=== PATIENT | female | born 1960 | race Caucasian/White ===

== ENCOUNTER → 2019-10-06 13:32 | Outpatient (CLI) | payer OTHER, SELFPAY ==
--- NOTE | ~2019-10-06 | MM_ITS ---
EXAMINATION: MM screening [facility] BI w shala HISTORY: Screening mammogram TECHNIQUE: Craniocaudal and mediolateral oblique 3-D tomosynthesis images were obtained and synthetic 2-D images were generated. CAD analysis was submitted and interpreted. COMPARISON: Comparison to multiple prior studies sequentially, with oldest reviewed study dated 03/2010. BREAST PARENCHYMAL COMPOSITION: There are scattered areas of fibroglandular density. FINDINGS: There is no evidence of suspicious mass, calcification, or architectural distortion to sugg est malignancy in either breast. There has been no suspicious interval change. IMPRESSION: 1. No mammographic evidence of malignancy. 2. Recommend routine screening mammography in one year. BI-RADS Category 1: Negative Reviewed, dictated and finalized at location A.
== END ==
PROVIDERS: PCP Family Medicine; Visit Provider Obstetrics & Gynecology
DX: Z12.31 Encounter for screening mammogram for malignant neoplasm of breast (principal)
CPT/HCPCS: 77063; 77067

== ENCOUNTER → 2020-08-06 16:01 | Outpatient (CLI) | payer OTHER, SELFPAY ==
--- NOTE | ~2020-08-06 | XR_ITS ---
EXAMINATION: XR foot LT 2V DATE: 08/06/2020 17:24 INDICATION: Psoriatic arthritis. TECHNIQUE: 2 views of left foot were obtained. COMPARISON: Left foot radiographs 04/18/2015 FINDINGS: Bone alignment is normal. No fracture. There is mild osteoarthritis of first metatarsophala ngeal joint and talonavicular joint. There is a periarticular calcification at talonavicular joint. T here are enthesophytes at the posterior and plantar aspects of calcaneal tuberosity. IMPRESSION: 1. Polyarticular osteoarthritis. Reviewed, dictated and finalized at location B. ING AND BROACH OPERATOR
--- NOTE | ~2020-08-06 | XR_ITS ---
EXAMINATION: XR sacroiliac joints min 3V DATE: 08/06/2020 17:24 INDICATION: Psoriatic arthritis. TECHNIQUE: 3 views of the sacroiliac joints were obtained. COMPARISON: CT abdomen and pelvis 01/23/2014 FINDINGS: Bone alignment is normal. No fracture. There is mild osteoarthritis of the sacroiliac joint s. There is an intrauterine device in expected position. IMPRESSION: 1. Mild osteoarthritis of the sacroiliac joints. No evidence of inflammatory arthropathy. Reviewed, dictated and finalized at location B. CTOR OF THE BIOPHYSICS FACILITY IMPRESSION: 1. Mild osteoarthritis of the sacroiliac joints. No evidence of inflammatory ar thropathy.
--- NOTE | ~2020-08-06 | XR_ITS ---
EXAMINATION: XR hand RT 2V DATE: 08/06/2020 17:24 INDICATION: Psoriatic arthritis. TECHNIQUE: 2 views of right hand were obtained. COMPARISON: Right wrist radiographs 08/24/2012 FINDINGS: Bone alignment is normal. No fracture. Lunate is type II. There is moderate osteoarthritis at the lunate-hamate joint. There is severe osteoarthritis of first carpometacarpal joint and mild os teoarthritis of first and second metacarpophalangeal joints. There is mild osteoarthritis of most of the interphalangeal joints. There is moderate osteoarthritis of second, third, and fifth distal inter phalangeal joints. IMPRESSION: 1. Polyarticular osteoarthritis. No evidence of inflammatory arthropathy. Reviewed, dictated and finalized at location B. CREWMEMBER
--- NOTE | ~2020-08-06 | XR_ITS ---
EXAMINATION: XR hand LT 2V DATE: 08/06/2020 17:24 INDICATION: Psoriatic arthritis. TECHNIQUE: 2 views of left hand were obtained. COMPARISON: Left wrist radiographs 08/24/2012 FINDINGS: Bone alignment is normal. No fracture. There is moderate osteoarthritis of first carpometac arpal joint and mild osteoarthritis of second and third metacarpophalangeal joints. There is mild ost eoarthritis of most of the interphalangeal joints. There is moderate osteoarthritis of second distal interphalangeal joint. IMPRESSION: 1. Polyarticular osteoarthritis. No evidence of inflammatory arthropathy. Reviewed, dictated and finalized at location B. CULTURAL EXTENSION AGENT
--- NOTE | ~2020-08-06 | XR_ITS ---
EXAMINATION: XR lumbar spine 2-3V DATE: 08/06/2020 17:24 INDICATION: Psoriatic arthritis. TECHNIQUE: 3 views of lumbar spine were obtained. COMPARISON: CT abdomen and pelvis 01/23/2014 FINDINGS: There is 6 degrees levocurvature of thoracolumbar spine. Vertebral body heights are normal. There is mildly decreased disc height at L1-L2. There are endplate osteophytes at most levels. There is severe facet joint osteoarthritis in lower lumbar spine. There is an intrauterine device in expec francisco position. There is 11 mm stone in left kidney. IMPRESSION: 1. Mild lumbar spondylosis. 2. Left kidney stone. Reviewed, dictated and finalized at location B. S SUPPORT ADVISOR
--- NOTE | ~2020-08-06 | XR_ITS ---
EXAMINATION: XR foot RT 2V DATE: 08/06/2020 17:24 INDICATION: Psoriatic arthritis. TECHNIQUE: 2 views of right foot were obtained. COMPARISON: None. FINDINGS: There is mild hallux valgus. No fracture. There is mild osteoarthritis of first metatarsoph alangeal joint and talonavicular joint. IMPRESSION: 1. Mild hallux valgus. 2. Mild polyarticular osteoarthritis. Reviewed, dictated and finalized at location B. AND MISCELLANEOUS REMITTANCE CLERK
== END ==
PROVIDERS: Visit Provider Physician Assistant Medical
DX: L40.50 Arthropathic psoriasis, unspecified (principal); M53.3 Sacrococcygeal disorders, not elsewhere classified; M47.896 Other spondylosis, lumbar region; N20.0 Calculus of kidney; M19.072 Primary osteoarthritis, left ankle and foot; M19.071 Primary osteoarthritis, right ankle and foot; M20.11 Hallux valgus (acquired), right foot; M19.042 Primary osteoarthritis, left hand; M19.041 Primary osteoarthritis, right hand
CPT/HCPCS: 72100; 72202; 73120; 73620

== ENCOUNTER → 2020-09-04 11:29 | Outpatient (CLI) | payer OTHER, SELFPAY ==
--- NOTE | ~2020-09-04 | XR_ITS ---
EXAMINATION: CT abdomen pelvis wo con, XR abdomen/kub 1V DATE: 09/04/2020 11:50 (accession [id number]), 09/04/2020 11:51 (accession [id number]) INDICATION: Kidney calculus TECHNIQUE: Computed tomography (CT) of the abdomen and pelvis was performed without intravenous contr ast. Automated exposure control and iterative reconstruction technique were employed. Exam dose: 101 5.66 mGy-cm total exam DLP. COMPARISON: 01/23/[address] abdomen pelvis FINDINGS: The lung bases are clear of infiltrate or consolidation. Normal heart size. No pericardial or pleural effusion. Small sliding hiatal hernia. The liver, gallbladder, bile ducts, spleen, pancreas, pancreatic duct, and adrenal glands are unremar kable. 4.7 mm radiographically evident nonobstructing mid right renal calculus. 6.5 mm radiographically evident lower pole nonobstructing right renal calculus. No right ureteral lisa culus or hydroureteronephrosis. There is a faint radiographically occult pinpoint nonobstructing lower pole left renal calculus. 5.8 x 13 mm radiographically evident left proximal ureteral calculus with moderate proximal left hydr onephrosis. There is mild thickening of the anterior and posterior pararenal fascia and lateroconal f ascia and perinephric stranding on the left. The urinary bladder is unremarkable. There is an IUD within the uterus. No adnexal mass lesion. Mild atherosclerotic calcification of the abdominal aorta. No abdominal aortic aneurysm. No intraperi toneal or retroperitoneal or pelvic mass lesion or adenopathy or ascites. Mild sigmoid colon diverticulosis. No evidence of diverticulitis. Normal appendix. No bowel obstruction, bowel wall thickening, pneumatosis or intraperitoneal free air . Small fat-containing umbilical hernia. Diffuse idiopathic skeletal hyperostosis of the thoracic spine. Moderate degenerative disc disease at L4-5 and L5-S1. There is prominent degenerative change at the a pophyseal joints of the lower lumbar and lumbosacral area. No suspicious osteolytic or osteoblastic lesions are noted. IMPRESSION: 5.8 x 13 mm obstructing left proximal ureteral calculus with moderate left hydronephrosi s, perinephric stranding, thickening of the anterior and posterior pararenal and lateroconal fascia Pinpoint nonobstructing lower pole left renal calculus 4.7 mm and 6.5 mm nonobstructing right renal calculi Small sliding hiatal hernia Sigmoid colon diverticulosis Reviewed, dictated and finalized at Location A. Reviewed, dictated and finalized at location B. G[employer] IMPRESSION: 5.8 x 13 mm obstructing left proximal ureteral calculus with moder ate left hydronephrosis, perinephric stranding, thickening of the anterior and posterior pararenal and lateroconal fascia Pinpoint nonobstructing lower pole left renal calculus 4.7 mm and 6.5 mm nonobstructing right renal calculi Small sliding hiatal hernia Sigmoid colon diverticulosis
== END ==
PROVIDERS: PCP Family Medicine; Visit Provider Urology
DX: K44.9 Diaphragmatic hernia without obstruction or gangrene (principal); K57.30 Diverticulosis of large intestine without perforation or abscess without bleeding; N20.2 Calculus of kidney with calculus of ureter
CPT/HCPCS: 74018; 74176

== ENCOUNTER → 2020-09-05 01:25 | Outpatient (CLI) | payer OTHER, SELFPAY ==
[2020-09-05 20:12] LABS: SARS-CoV-2 RNA PCR Negative
== END ==
PROVIDERS: PCP Family Medicine; Visit Provider Urology
DX: Z01.812 Encounter for preprocedural laboratory examination (principal); Z20.822 Contact with and (suspected) exposure to COVID-19
CPT/HCPCS: C9803; U0003; U0005

== ENCOUNTER → 2020-09-09 00:05 | Outpatient (CLI) | payer OTHER, SELFPAY ==
[2020-09-09 19:33] LABS: SARS-CoV-2 RNA PCR Negative
== END ==
PROVIDERS: PCP Family Medicine; Visit Provider Urology
DX: Z01.812 Encounter for preprocedural laboratory examination (principal); Z20.822 Contact with and (suspected) exposure to COVID-19
CPT/HCPCS: C9803; U0003; U0005

== ENCOUNTER 2020-09-10 16:30 | Outpatient (CLI) | payer OTHER, SELFPAY ==
--- NOTE | 2020-09-10 16:33 | ECG_ITS ---
Measurements Intervals [place] Rate: 68 P: 37 AK: 164 QRS: 38 QRSD: 88 T: 34 QT: 369 QTc: 394 Interpretive Statements SINUS RHYTHM NORMAL ECG Electronically Signed On 09-10-2020 16:43:49 FACILITY SERVICE MANAGER by Santosh Zhu D.O.
[2020-09-10 17:27] LABS: Basophils Absolute Auto 0.1 K/mm3 (0.0-0.1); Basophils Percent Auto 0.8 % (0.2-1.2); Eosinophils Absolute Auto 0.2 K/mm3 (0-0.3); Eosinophils Percent Auto 3.4 % (0-4.4); Hematocrit 40.1 % (37.0-47.0); Hemoglobin 12.8 g/dL (12.0-15.0); Immature Granulocyte Absolute 0.01 K/mm3 (0.00-0.031); Immature Granulocyte Percent A 0.2 % (0-0.5); Lymphocytes Absolute Auto 1.46 K/mm3 (0.9-3.2); Lymphocytes Percent Auto 23.7 % (18.3-44.2); Mean Corpuscular HGB Conc 31.9 g/dl (32-36); Mean Corpuscular Hemoglobin 31.7 pg (26-34); Mean Corpuscular Volume 99.3 fl (80-100); Mean Platelet Volume 10.2 fl (7.4-10.4); Monocytes Absolute Auto 0.6 K/mm3 (0.1-0.6); Monocytes Percent Auto 9.1 % (2.6-8.5); Neutrophils Absolute Auto 3.9 K/mm3 (1.3-6.7); Neutrophils Percent Auto 62.8 % (45.5-73.1); Platelet Count Result 364 k/mm3 (150-375); Red Blood Count 4.04 M/mm3 (4.2-5.4); White Blood Count 6.2 K/mm3 (4.5-10.0)
[2020-09-10 17:36] LABS: Prothrombin Time 14.1 Seconds (11.1-14.7)
[2020-09-10 17:37] LABS: Partial Thromboplastin Time 37.1 SECONDS (22.3-36.8)
[2020-09-10 17:42] LABS: Alanine Aminotransferase 25 U/L (4-35); Albumin Level 4.5 g/dL (3.5-5.1); Alkaline Phosphatase 74 U/L (38-126); Anion Gap 9 mmol/L (8-16); Aspartate Amino Transferase 40 U/L (14-36); Bilirubin,Total 0.4 mg/dL (0.2-1.3); Blood Urea Nitrogen 16 mg/dL (7-17); CRP 2.9 mg/dL (<1.0); Calcium 9.7 mg/dL (8.4-10.2); Carbon Dioxide 30 mmol/L (22-30); Chloride 106 mmol/L (98-107); Estimated Glomerular Filt Rate 33; Glucose 127 mg/dL (65-105); Sodium 145 mmol/L (137-145)
[2020-09-10 17:55] LABS: Erythrocyte Sedimentation Rate 55 mm/hr (0-20)
[2020-09-10 19:34] LABS: Vitamin D 25 Hydroxy 35.9 ng/mL
== END 2020-09-10 16:31 | disposition home or self-care (01) ==
PROVIDERS: Urology; PCP Family Medicine; Referring Provider Physician Assistant Medical; Visit Provider Anesthesiology
DX: L40.50 Arthropathic psoriasis, unspecified (principal)
CPT/HCPCS: 36415; 80053; 82306; 85025; 85610; 85652; 85730; 86140; 93005

== ENCOUNTER 2020-09-12 01:34 | Day surgery (SDC) | payer OTHER, SELFPAY ==
[2020-09-04 18:11] VITALS: BMI 46.3
[2020-09-12] VITALS (8 sets, daily range): BP systolic 94–147; BP diastolic 53–72; PULSE 67–78; RESP 12–20; TEMP 36.3; O2SAT 95–100; BMI 38.9
--- NOTE | ~2020-09-12 | XR_ITS ---
EXAMINATION: XR abdomen/kub 1V DATE: 09/12/2020 11:53 INDICATION: Lithotripsy TECHNIQUE: A supine view of the abdomen on 2 radiographs was obtained. COMPARISON: CT and KUB dated 09/04/2020 FINDINGS: The 11 mm stone previously seen in the proximal left ureter is advanced now in the distal left ureter projecting slightly inferomedial to the caudal margin of the left sacral iliac joint. 5 mm right jewell al stone previously at a lower pole calyx is now seen projecting over the right renal pelvis. No othe r evident urolithiasis. Atherosclerotic calcification the right hemipelvis. Unchanged appearance of a n IUD in the central pelvis. Lung bases are clear. Moderate to severe lower lumbar facet osteoarthrit is. IMPRESSION: 1. Bilateral nephrolithiasis with advancement of an 11 mm stone previously in the proximal left urete r, now in the distal left ureter. Reviewed, dictated and finalized at location A. H DRESSER IMPRESSION: 1. Bilateral nephrolithiasis with advancement of an 11 mm stone previously in t he proximal left ureter, now in the distal left ureter.
--- NOTE | 2020-09-12 12:29 | WPDHPUPDATE1 ---
History and Physical Update Update Date/Time: 09/12/20 12:29 History and Physical has been reviewed, including an updated exam of the patient. There are NO changes in the patient's condition. Risks, benefits, and alternatives have been discussed and questions answered. Patient agrees to proceed with procedure. Proceed with eswl of left ureteral calculus possible cysto with stent placement.
[2020-09-12] MEDS: LACTATED RINGERS 1,000 ML 30 ML IV CONT (12:32)
--- NOTE | 2020-09-12 12:32 | P.PNAN_ITS ---
Anes - Initial Pre Proc Eval Procedure: Operation Date: 09/12/20 13:45 Proposed Procedures p Left Ureteral Extracorporeal Shock Wave Lithotripsy - Jeffrey Trotter MD s Possible Cystoscopy With Possible Left Ureteral Stent Placement - Jeffrey Trotter MD Date/Time: 09/12/20 12:32 Surgeon: Jeffrey Trotter MD Pre Op Diagnosis: Left Ureteral Stone, Hydronephrosis Patient Data Age: 59 Gender: F Height: 5 ft 1 in Weight: 93.4 kg Last Vital Signs Temp 97.3 F L 09/12/20 12:14 Pulse 67 09/12/20 12:14 Resp 16 09/12/20 12:14 BP 113/63 09/12/20 12:14 Pulse Ox 99 09/12/20 12:14 Allergies Allergy/AdvReac Type Severity Reaction Status Date / Time naproxen [From Aleve] AdvReac Gastrointestinal Verified 09/12/20 12:02 Upset Sulfa (Sulfonamide AdvReac Congested Verified 09/12/20 12:02 Antibiotics) Home Medications Medication Instructions Recorded Confirmed Type allopurinol 100 mg PO BID 09/04/20 09/12/20 History apremilast [Otezla] 30 mg PO BID 09/04/20 09/12/20 History atenolol 50 mg PO HS 09/04/20 09/06/20 History folic acid 1 mg PO DAILY 09/04/20 09/12/20 History lisinopril 5 mg PO QAM 09/04/20 09/12/20 History methotrexate sodium 12.5 mg PO DIRECTED 09/04/20 09/12/20 History nabumetone [Relafen] 1,000 mg PO DAILY 09/04/20 09/06/20 History prednisone 2.5 mg PO QAM 09/04/20 09/12/20 History sulfasalazine 500 mg PO BID 09/04/20 09/12/20 History calcium carbonate [Calcium 600] 600 mg PO DAILY 09/06/20 09/12/20 History omeprazole magnesium [Prilosec OTC] 20 mg PO DAILY 09/06/20 09/12/20 History tamsulosin 0.4 mg PO DAILY 09/06/20 09/12/20 History tramadol 50 mg PO Q6-8H PRN 09/06/20 09/12/20 History Patient hx anesthesia problems: none Family hx anesthesia problems: none [facility] Past Medical History Medical History (Updated 09/12/20 @ 12:32 by Denys Quesada MD) GERD (gastroesophageal reflux disease) Hypertension LANNY (obstructive sleep apnea) Social History Social History Smoking status: Never smoker Living arrangements: alone Gender identity (if verbalized by the patient): Female Spiritual care concerns: No Anes - Eval Final PreProcedure Day of Procedure 09/12/20 12:32 Patient weight: obese Heart: regular rate and rhythm Lungs: clear to auscultation Airway: Mallampati scale class III Neurological: alert and oriented Last oral intake: >/= 8 hours ASA classification: III Emergent: no Anesthetic plan: proceed Anesthesia type and monitoring: general LMA and standard monitoring Informed Consent: The patient's anesthetic plan and its attendant risks and benefits were discussed with the patient/family/POA. Questions were solicited and answers provided to the satisfaction of the patient/family/POA.
--- NOTE | 2020-09-12 12:33 | SUR.PREOP ---
DR YEN NOTIFIED OF PT'S C/O NAUSEA.
[2020-09-12] MEDS: ONDANSETRON INJ 4 MG/2 ML VIAL IV PUSH (12:41)
--- NOTE | 2020-09-12 13:19 | WPDHPUPDATE1 ---
History and Physical Update Update Date/Time: 09/12/20 13:19 History and Physical has been reviewed, including an updated exam of the patient. There are NO changes in the patient's condition. Risks, benefits, and alternatives have been discussed and questions answered. Patient agrees to proceed with procedure. Proceed with cysto, left stent exchange, possible eswl of ureteral stent
[2020-09-12] MEDS: ceFAZolin 2 GM/D5W 50 ML 2 GM/50 ML BAG IVPB (13:37)
--- NOTE | 2020-09-12 14:18 | SUR.OPER ---
left ureteral stent 4.8FR contour
[2020-09-12] MEDS: LIDOCAINE HCL 2% GEL UROJET 10 ML PKG MUCOUS MEM (14:42)
--- NOTE | 2020-09-12 14:44 | PM.PROC ---
Procedure Note - Detailed Date of procedure: 09/12/20 Pre-op diagnosis: Left Ureteral Stone, Hydronephrosis Post-op diagnosis: same Procedure performed: Cystoscopy, left retrograde pyelogram, left ureteral stent placement 4.8 Hong Konger contour, lithotripsy of left ureteral calculus 12 mm. Description of procedure: Patient is taken the operative suite and correctly identified. Once anesthesia was obtained she was placed the supine position. The stone was localized in both planes. Three thousand shocks were given the stone. It was difficult to tell how much fragmentation was actually occurring. Giving the fact that she was having significant nausea and emesis prior to the procedure we decided to place a stent. We thus frog-leg urine prepped and draped in the usual sterile fashion. Sixteen Hong Konger flexible scope inserted into the urethra. The left ureteral orifice was cannulated with a guidewire were able to manipulated up past the stone. A [place]kov was passed over it. Pyelogram was performed. 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 We were able to place a 4.8 [place]er contour stent with the proximal end coiled in the upper pole calyx distal in the bladder. 2% viscous lidocaine was inserted into the urethra. She is taken recovery room stable condition. She will follow up in about 10 days with KUB. Anesthesia: GLMA Surgeon: Jeffrey Trotter MD Drains: Yes Packing: No Pathology: none sent Complications: No immediate complications Condition: stable Disposition: PACU
[2020-09-12] MEDS: fentaNYL CITRATE INJ (*CRX) 100 MCG/2 ML VIAL 25 MCG IV PUSH (15:13)
== END 2020-09-12 16:56 | disposition home or self-care (01) ==
PROVIDERS: PCP Family Medicine; Visit Provider Urology
PROC: (CPT 50590; principal; 2020-09-12 13:45)
PROC: (CPT 52352; 2020-09-12 13:45)
DX: N13.2 Hydronephrosis with renal and ureteral calculous obstruction (principal); N13.30 Unspecified hydronephrosis; K21.9 Gastro-esophageal reflux disease without esophagitis; I10 Essential (primary) hypertension; G47.33 Obstructive sleep apnea (adult) (pediatric); E66.01 Morbid (severe) obesity due to excess calories; Z68.38 Body mass index [BMI] 38.0-38.9, adult
CPT/HCPCS: 50590; 52332; 36415; 74018; 85730; A9270; C1758; C1769; C2617; C9803; J0690; J2250; J2405; J2704; J3010; J7030; J7120; Q9966; U0003; U0005

== ENCOUNTER 2020-09-26 10:32 | Outpatient (CLI) | payer OTHER, SELFPAY ==
--- NOTE | ~2020-09-26 | XR_ITS ---
EXAMINATION: XR abdomen/kub 1V INDICATION: Left ureteral stone TECHNIQUE: Supine views of the abdomen were obtained on 2 radiographs. COMPARISON: 09/12/2020 FINDINGS: A left internal ureteral stent has been placed in expected position. The previously describ ed left distal ureteral stone appears to have been fragmented into multiple smaller fragments which a re now seen adjacent to the distal aspect of the internal ureteral stent. An approximately 6 mm stone is seen adjacent to the internal ureteral stent just below the lower margin of the left sacrum. Ther e is a 6 mm stone of the right kidney. The bowel gas pattern is normal. There is moderate osteoarthri tis of the hips. An IUD is noted in the pelvis. IMPRESSION: 1. Changes consistent with interval treatment of the previously described left distal ureteral stone with stone fragments adjacent to the distal aspect of a left internal ureteral stent. 2. Right nephrolithiasis. Reviewed, dictated and finalized at location A. RETE ENGINEER IMPRESSION: 1. Changes consistent with interval treatment of the previously described left distal ureteral stone with stone fragments adjacent to the distal aspect of a l eft internal ureteral stent. 2. Right nephrolithiasis.
== END 2020-09-26 10:33 | disposition home or self-care (01) ==
LOC: ANHIMG 10:34
PROVIDERS: PCP Family Medicine; Visit Provider Urology
DX: N20.0 Calculus of kidney (principal)
CPT/HCPCS: 74018

== ENCOUNTER → 2020-10-03 16:12 | Outpatient (CLI) | payer OTHER, SELFPAY ==
--- NOTE | ~2020-10-03 | XR_ITS ---
XR abdomen/kub 1V DATE: 10/03/2020 16:25 INDICATION: Ureteral calculus TECHNIQUE: AP projection, 2 views COMPARISON: 09/26/2020 KUB 09/04/[address] abdomen pelvis FINDINGS: Left internal urinary stent is unchanged in position since 09/26/2020. There is evidence of Steinstrasse (linear array of stones) at the distal left ureter. There are 2 mid right renal calcified. No evidence of bowel obstruction. The psoas shadows are intact. No visceromegaly is evident. IMPRESSION: Distal left ureteral Steinstrasse following lithotripsy Left internal urinary stent unchanged since 09/04/2020 Right nephrolithiasis Reviewed, dictated and finalized at Location A. Reviewed, dictated and finalized at location A.
== END ==
PROVIDERS: PCP Family Medicine; Visit Provider Urology
DX: N20.2 Calculus of kidney with calculus of ureter (principal)
CPT/HCPCS: 74018

== ENCOUNTER → 2020-10-07 01:01 | Outpatient (CLI) | payer OTHER, SELFPAY ==
[2020-10-07 20:24] LABS: SARS-CoV-2 RNA PCR Negative
== END ==
PROVIDERS: PCP Family Medicine; Visit Provider Urology
DX: Z01.812 Encounter for preprocedural laboratory examination (principal); Z20.822 Contact with and (suspected) exposure to COVID-19
CPT/HCPCS: C9803; U0003; U0005

== ENCOUNTER 2020-10-07 15:50 | Outpatient (CLI) | payer OTHER, SELFPAY | END 2020-10-07 15:51 | disposition home or self-care (01) | LOC: ANHSURGERY 15:51 | PROVIDERS: PCP Family Medicine; Visit Provider Urology | DX: N20.1 Calculus of ureter (principal); Z01.818 Encounter for other preprocedural examination | CPT/HCPCS: 87086 ==

== ENCOUNTER 2020-10-10 01:22 | Day surgery (SDC) | payer OTHER, SELFPAY ==
[2020-10-07 08:48] VITALS: BMI 46.2
[2020-10-10] VITALS (8 sets, daily range): BP systolic 121–158; BP diastolic 62–95; PULSE 61–71; RESP 13–16; TEMP 36.5–37; O2SAT 97–100
--- NOTE | ~2020-10-10 | XR_ITS ---
XR abdomen/kub 1V 10/10/2020 13:15 Indication: Renal stones Procedure: KUB Comparison: 10/03/2020 Findings: No significant change to position the left internal ureteral stent. There are multiple dist al left ureteral stones. There are right renal stones, largest measuring 6 mm. There is an IUD in the pelvis. Bowel gas pattern is nonobstructive. Impression: 1: Multiple distal left ureteral stones with stable position to left internal ureteral stent. 2: Right nephrolithiasis. Reviewed, dictated and finalized at location A. Impression: 1: Multiple distal left ureteral stones with stable position to left internal u reteral stent. 2: Right nephrolithiasis.
--- NOTE | ~2020-10-10 | XR_ITS ---
EXAMINATION: XR retrograde pyelo w/stent LT DATE: 10/10/2020 14:53 INDICATION: Left internal ureteral stent placement TECHNIQUE: Fluoroscopic images from a left internal ureteral stent placement are submitted for review . 23 seconds of fluoroscopy time. 4 fluoroscopic images. FINDINGS: There is a left double-J internal ureteral stent projecting in expected position, with proximal [place] loop at the level of the renal pelvis and distal loop in the pelvis within the bladder lumen. IMPRESSION: 1. Left internal ureteral stent placement. Please refer to real-time procedural findings for detail s. Reviewed, dictated and finalized at location A. IMPRESSION: 1. Left internal ureteral stent placement. Please refer to real-time procedur al findings for details.
[2020-10-10] MEDS: LACTATED RINGERS 1,000 ML 30 ML IV CONT ×2 (13:40→14:58)
--- NOTE | 2020-10-10 13:40 | WPDANESEPP ---
Anes - Eval Pre Procedure Procedure: Operation Date: 10/10/20 15:00 Proposed Procedures p Cystoscopy, Left Retrograde Pyelogram, Left Ureteroscopy, Left Stone Extraction, Left Stent Exchange - Jeffrey Trotter MD Date/Time: 10/10/20 13:40 Surgeon: Sergo Preop Diagnosis: left ureteral stone Pre Op Diagnosis: Left Ureteral Stone Patient Data Age: 60 Gender: F Height: 5 ft 1 in Weight: 104.5 kg Last Vital Signs Temp 36.5 C 10/10/20 13:04 Pulse 64 10/10/20 13:04 Resp 16 10/10/20 13:04 BP 146/95 H 10/10/20 13:04 Pulse Ox 99 10/10/20 13:04 Allergies Allergy/AdvReac Type Severity Reaction Status Date / Time naproxen [From Aleve] AdvReac Gastrointestinal Verified 10/07/20 08:45 Upset Sulfa (Sulfonamide AdvReac Congested Verified 10/07/20 08:45 Antibiotics) Home Medications Medication Instructions Recorded Confirmed Type Otezla 30 mg PO BID 09/04/20 10/07/20 History allopurinol 100 mg PO BID 09/04/20 10/07/20 History atenolol 50 mg PO HS 09/04/20 10/07/20 History folic acid 1 mg PO DAILY 09/04/20 10/07/20 History lisinopril 5 mg PO QAM 09/04/20 10/07/20 History methotrexate sodium 12.5 mg PO DIRECTED 09/04/20 10/07/20 History nabumetone [Relafen] 1,000 mg PO DAILY 09/04/20 10/07/20 History prednisone 1 mg PO QAM 09/04/20 10/07/20 History sulfasalazine 500 mg PO BID 09/04/20 10/07/20 History omeprazole magnesium [Prilosec OTC] 20 mg PO DAILY 09/06/20 10/07/20 History Patient hx anesthesia problems: none Family hx anesthesia problems: none PMFSH Past Medical History Medical History (Updated 10/10/20 @ 13:41 by Bruno Sanchez CRNA) GERD (gastroesophageal reflux disease) Hypertension Morbid obesity LANNY (obstructive sleep apnea) Social History Social History Smoking status: Never smoker Alcohol intake: current Alcohol use details: RARE Substance use: never Substance use type: does not use Living arrangements: alone Gender identity (if verbalized by the patient): Female Spiritual care concerns: No Exam Day of Procedure 10/10/20 13:40 Patient weight: morbidly obese Heart: regular rate and rhythm Lungs: clear to auscultation and normal air movement Airway: Mallampati scale class III Neurological: alert and oriented
--- NOTE | 2020-10-10 13:43 | WPDANESEPPF ---
Anes - Initial Pre Proc Eval Procedure: Operation Date: 10/10/20 15:00 Proposed Procedures p Cystoscopy, Left Retrograde Pyelogram, Left Ureteroscopy, Left Stone Extraction, Left Stent Exchange - Jeffrey Trotter MD Date/Time: 10/10/20 13:43 Surgeon: Jeffrey Trotter MD Pre Op Diagnosis: Left Ureteral Stone Patient Data Age: 60 Gender: F Height: 5 ft 1 in Weight: 104.5 kg Last Vital Signs Temp 97.7 F 10/10/20 13:04 Pulse 64 10/10/20 13:04 Resp 16 10/10/20 13:04 BP 146/95 H 10/10/20 13:04 Pulse Ox 99 10/10/20 13:04 Allergies Allergy/AdvReac Type Severity Reaction Status Date / Time naproxen [From Aleve] AdvReac Gastrointestinal Verified 10/07/20 08:45 Upset Sulfa (Sulfonamide AdvReac Congested Verified 10/07/20 08:45 Antibiotics) Home Medications Medication Instructions Recorded Confirmed Type Otezla 30 mg PO BID 09/04/20 10/07/20 History allopurinol 100 mg PO BID 09/04/20 10/07/20 History atenolol 50 mg PO HS 09/04/20 10/07/20 History folic acid 1 mg PO DAILY 09/04/20 10/07/20 History lisinopril 5 mg PO QAM 09/04/20 10/07/20 History methotrexate sodium 12.5 mg PO DIRECTED 09/04/20 10/07/20 History nabumetone [Relafen] 1,000 mg PO DAILY 09/04/20 10/07/20 History prednisone 1 mg PO QAM 09/04/20 10/07/20 History sulfasalazine 500 mg PO BID 09/04/20 10/07/20 History omeprazole magnesium [Prilosec OTC] 20 mg PO DAILY 09/06/20 10/07/20 History Patient hx anesthesia problems: none Family hx anesthesia problems: none PMFSH Past Medical History Medical History (Updated 10/10/20 @ 13:41 by Bruno Sanchez CRNA) GERD (gastroesophageal reflux disease) Hypertension Morbid obesity LANNY (obstructive sleep apnea) Social History Social History Smoking status: Never smoker Alcohol intake: current Alcohol use details: RARE Substance use: never Substance use type: does not use Living arrangements: alone Gender identity (if verbalized by the patient): Female Spiritual care concerns: No Anes - Eval Final PreProcedure Day of Procedure 10/10/20 13:43 Patient weight: morbidly obese Heart: regular rate and rhythm Lungs: clear to auscultation Airway: Mallampati scale class III Neurological: alert and oriented Last oral intake: >/= 8 hours ASA classification: III Emergent: no Anesthetic plan: proceed Anesthesia type and monitoring: general LMA and standard monitoring Informed Consent: The patient's anesthetic plan and its attendant risks and benefits were discussed with the patient/family/POA. Questions were solicited and answers provided to the satisfaction of the patient/family/POA.
--- NOTE | 2020-10-10 14:10 | WPDHPUPDATE1 ---
History and Physical Update Update Date/Time: 10/10/20 14:10 History and Physical has been reviewed, including an updated exam of the patient. There are NO changes in the patient's condition. Risks, benefits, and alternatives have been discussed and questions answered. Patient agrees to proceed with procedure. Proceed with cysto , left retrograde, left ureteroscopy with stone extraction, possible laser, stent exchange
[2020-10-10] MEDS: ceFAZolin 2 GM/D5W 50 ML 2 GM/50 ML BAG IVPB (14:21)
[2020-10-10] MEDS: LIDOCAINE HCL 2% GEL UROJET 10 ML PKG MUCOUS MEM (14:41)
--- NOTE | 2020-10-10 14:49 | PM.PROC ---
Procedure Note - Detailed Date of procedure: 10/10/20 Pre-op diagnosis: Left Ureteral Stone Post-op diagnosis: same Procedure performed: Cystoscopy, left retrograde pyelogram, left ureteroscopy with stone extraction, left stent exchange. Description of procedure: Patient is taken the operative suite and correctly identified. Once anesthesia was obtained she was placed in dorsal lithotomy position prepped and draped usual sterile fashion. Twenty-two Kyrgyz scope was inserted the bladder. The stent was visualized. It was grasped developed meatus. Guidewire was passed through this stent. A rigid ureteral scope was then inserted. There was approximately fiber 6 stones that were used escape basket to retrieve. Reinspection revealed no residual stones in the distal ureter. We then noted that she had a duplicated system partial which bifurcated proximally. The wire was in the lower pole system. We then placed a 4.8 [place]z stent with the proximal end coiled in lower pole pelvis distal in the bladder. Bladder is drained. 2% viscous lidocaine inserted urethra is taken recovery stable condition. She will follow up next week for stent removal in the office. Anesthesia: GLMA Surgeon: Jeffrey Trotter MD Drains: Yes Packing: No Pathology: yes Complications: No immediate complications Condition: stable Disposition: PACU
== END 2020-10-10 16:30 | disposition home or self-care (01) ==
PROVIDERS: PCP Family Medicine; Visit Provider Urology
PROC: (CPT 52352; principal; 2020-10-10 15:00)
DX: N20.1 Calculus of ureter (principal); I10 Essential (primary) hypertension; K21.9 Gastro-esophageal reflux disease without esophagitis; G47.33 Obstructive sleep apnea (adult) (pediatric); E66.01 Morbid (severe) obesity due to excess calories; Z68.41 Body mass index [BMI] 40.0-44.9, adult
CPT/HCPCS: 52332; 52352; 74018; 74420; 82365; 87086; 88300; A9270; C1758; C1769; C2617; C9803; J0690; J1100; J2250; J2370; J2405; J2704; J3010; J7120; Q9966; U0003; U0005

== ENCOUNTER → 2020-11-16 08:57 | Outpatient (CLI) | payer OTHER, SELFPAY ==
--- NOTE | ~2020-11-16 | US_ITS ---
EXAMINATION: US retroperitoneal comp DATE: 11/16/2020 09:16 INDICATION: Left flank pain. Recent lithotripsy. TECHNIQUE: Multiple ultrasound grayscale images of the kidneys were obtained. COMPARISON: None. FINDINGS: The right kidney measures 12.5 x 5.3 x 4.4 cm. The left kidney measures 11.7 x 5.2 x 5.1 cm. The kidn eys demonstrate normal echogenicity. There is no hydronephrosis in either kidney. No stones identifi ed. The bladder is is unremarkable but partially decompressed which limits evaluation. Incidentally n oted is increased echogenicity of the liver consistent with diffuse hepatic steatosis. IMPRESSION: 1. Normal kidneys without hydronephrosis. 2. Diffuse hepatic steatosis. Reviewed, dictated and finalized at location A.
== END ==
PROVIDERS: Visit Provider Urology
DX: N20.1 Calculus of ureter (principal); K76.0 Fatty (change of) liver, not elsewhere classified
CPT/HCPCS: 76770

== ENCOUNTER 2022-09-18 11:05 | Emergency (ER) | payer OTHER, SELFPAY ==
--- NOTE | ~2022-09-18 | CT_ITS ---
EXAMINATION: CT abdomen pelvis w con INDICATION: Left lower quadrant pain TECHNIQUE: Computed tomographic images of the abdomen and pelvis were obtained after the administrati on of 100 cc of Omnipaque 350 intravenous contrast. The dose-length product (DLP) was 1305.33 mGy-cm. Automated exposure control and iterative reconstruction technique were employed. COMPARISON: 09/04/2020 FINDINGS: The lung bases are clear. The heart size is normal. The liver, pancreas, gallbladder, and a drenal glands are normal. There is a 12 mm soft tissue attenuation lesion in the cranial aspect of th e spleen. There is a 9 mm stone in the proximal right ureter. There is a 4 mm nonobstructing stone of the right kidney. The left kidney is unremarkable. No pathologically enlarged abdominal or pelvic ly mph nodes are identified. No free intraperitoneal gas or evidence of bowel obstruction. There is liqu id stool in the colon to the level of the rectum. The appendix is normal. An IUD is present in the ut erus in expected position. There is moderate lumbar spondylosis. IMPRESSION: 1. Liquid stool in the colon to the level of the rectum, likely reflecting diarrhea. 2. 9 mm stone of the proximal right ureter. 3. Nonobstructing right nephrolithiasis. 4. Indeterminate 12 mm lesion of the spleen, probably benign in the absence of known malignancy. Foll ow-up MRI without and with contrast in six months is recommended. Reviewed, dictated and finalized at location F. LATION CUTTER IMPRESSION: 1. Liquid stool in the colon to the level of the rectum, likely reflecting diar chad. 2. 9 mm stone of the proximal right ureter. 3. Nonobstructing right nephrolithiasis. 4. Indeterminate 12 mm lesion of the spleen, probably benign in the absence of known malignancy. Follow-up MRI without and with contrast in six months is kenneth mmended.
[2022-09-18 12:10] VITALS: BP 142/74; PULSE 79; RESP 20; TEMP 36.4; O2SAT 99
[2022-09-18 15:23] VITALS: BP 135/74; PULSE 74; RESP 15; O2SAT 100
[2022-09-18 15:33] LABS: Basophils Percent Auto 0.2 % (0.2-1.2); Eosinophils Percent Auto 0.2 % (0-4.4); Hematocrit 42.9 % (37.0-47.0); Immature Granulocyte Absolute 0.02 K/mm3 (0.00-0.031); Immature Granulocyte Percent A 0.2 % (0-0.5); Lymphocytes Absolute Auto 0.54 K/mm3 (0.9-3.2); Lymphocytes Percent Auto 6.2 % (18.3-44.2); Mean Corpuscular HGB Conc 32.6 g/dl (32-36); Mean Corpuscular Hemoglobin 30.5 pg (26-34); Mean Corpuscular Volume 93.5 fl (80-100); Mean Platelet Volume 10.3 fl (7.4-10.4); Monocytes Absolute Auto 0.5 K/mm3 (0.1-0.6); Neutrophils Absolute Auto 7.7 K/mm3 (1.3-6.7); Neutrophils Percent Auto 87.2 % (45.5-73.1); Platelet Count Result 290 k/mm3 (150-375); Red Blood Count 4.59 M/mm3 (4.2-5.4); Red Cell Distribution Width 13.9 % (11.5-14.5); White Blood Count 8.8 K/mm3 (4.5-10.0)
[2022-09-18 15:37] LABS: Alanine Aminotransferase 27 U/L (6-35); Albumin Level 5.1 g/dL (3.5-5.1); Alkaline Phosphatase 90 U/L (38-126); Anion Gap 14 mmol/L (8-16); Aspartate Amino Transferase 42 U/L (14-36); Bilirubin,Total 0.5 mg/dL (0.2-1.3); Blood Urea Nitrogen 31 mg/dL (7-17); Calcium 9.5 mg/dL (8.4-10.2); Carbon Dioxide 23 mmol/L (22-30); Chloride 106 mmol/L (98-107); Estimated CRCL calculation 53 ml/min; Estimated Glomerular Filt Rate 51; Glucose 130 mg/dL (65-110); Lipase 134 U/L (23-300); Potassium 3.8 mmol/L (3.4-5.0); Sodium 143 mmol/L (137-145)
--- NOTE | 2022-09-18 15:41 | ED.GENADULT ---
HPI - General Adult General Chief complaint: Nausea/Vomiting/Diarrhea Stated complaint: N/V/D X1D Time Seen by Provider: 09/18/22 14:41 History of Present Illness HPI narrative: 61-year-old female presented to the emergency department for evaluation abdominal cramping. Patient states she had lunch yesterday and afterwards began having diarrhea. Patient states since then she has also had left lower quadrant and left upper quadrant abdominal cramping. Patient denies any blood in her stool. Patient also reports she has had associated nausea and vomiting. Patient denies any prior history of abdominal surgeries and denies any history of diverticulitis. Related Data Home Medications Medication Instructions Recorded Confirmed allopurinol 100 mg tablet 100 mg PO BID 09/04/20 10/10/20 apremilast 30 mg tablet (Otezla) 30 mg PO BID 09/04/20 10/10/20 atenolol 50 mg tablet 50 mg PO HS 09/04/20 10/10/20 folic acid 1 mg tablet 1 mg PO DAILY 09/04/20 10/10/20 lisinopril 10 mg tablet 5 mg PO QAM 09/04/20 10/10/20 methotrexate sodium 2.5 mg tablet 12.5 mg PO DIRECTED 09/04/20 10/10/20 nabumetone 500 mg tablet (Relafen) 1,000 mg PO DAILY 09/04/20 10/10/20 prednisone 5 mg tablet 1 mg PO QAM 09/04/20 10/10/20 sulfasalazine 500 mg 500 mg PO BID 09/04/20 10/10/20 tablet,delayed release omeprazole magnesium 20 mg 20 mg PO DAILY 09/06/20 10/10/20 tablet,delayed release (Prilosec OTC) Allergies Allergy/AdvReac Type Severity Reaction Status Date / Time naproxen [From Aleve] AdvReac Gastrointestinal Verified 10/10/20 13:59 Upset Sulfa (Sulfonamide AdvReac Congested Verified 10/10/20 13:59 Antibiotics) Review of Systems Review of Systems: All systems reviewed & are unremarkable except as noted in HPI and below PMFSH Past Medical History Medical History (Updated 09/19/22 @ 00:01 by July Martinez) GERD (gastroesophageal reflux disease) Hypertension Morbid obesity LANNY (obstructive sleep apnea) Social History Social History Smoking status: Never smoker Alcohol intake: current Alcohol use details: RARE Substance use: never Substance use type: does not use Living arrangements: alone Gender identity (if verbalized by the patient): Female Spiritual care concerns: No Exam Narrative: APPEARANCE: Well appearing, no pain, no distress, well-nourished. HEAD: normocephalic, atraumatic. EYES: PERRLA/EOMI, conjunctivae clear. NOSE: Normal no drainage NECK: Supple. No adenopathy, no masses. RESPIRATORY: Airway patent, respirations nonlabored. Clear to auscultation bilaterally, no rales, rhonchi, wheezing. CARDIOVASCULAR: Regular rate and rhythm without murmurs rubs or gallops. ABDOMINAL: Soft, nondistended left lower quadrant tenderness to palpation MUSCULOSKELETAL: Moves all extremities. Strength/ROM intact, No edema, No calf tenderness. NEURO: Alert. Cranial nerves II through XII intact. Grossly intact SKIN: Warm, dry. Normal Color Course Course Emergency Course: 61 female with left lower quadrant tenderness. Patient was provided IV fluids, IV Zofran and IV medications for pain control. CT scan was also ordered to rule out colitis, diverticulitis. CT abdomen pelvis was ordered and did show evidence of enteritis. Incidental finding also showed a right ureteral calculi of 9 mm. Patient was asymptomatic with this. I discussed the case with Dr. Mcdonnell and he was comfortable the patient having close follow-up as outpatient. Patient already has follow-up established with Dr. Trotter Vital Signs Vital signs: Vital Signs Temperature 97.5 F L 09/18/22 12:10 Pulse Rate 79 09/18/22 12:10 Respiratory Rate 20 09/18/22 12:10 Blood Pressure 142/74 H 09/18/22 12:10 Pulse Oximetry 99 09/18/22 12:10 Oxygen Delivery Room Air 09/18/22 12:10 Temperature 98.5 F 09/18/22 18:02 Pulse Rate 79 09/18/22 18:02 Respiratory Rate 18
[2022-09-18 15:56] LABS: Appearance Urine Cloudy (Clear); Bacteria Urine None Seen /hpf; Bilirubin Urine 1+ (Negative); Blood Urine Negative (Negative); Color Urine Dark Yellow (Yellow); Glucose Urine UA Negative (Negative); Hyaline Casts Urine Present /lpf; Ketones Urine Trace mg/dL (Negative); Leukocyte Esterase Ur Negative LEU/UL (Negative); Mucus Urine Present /lpf; Need Manual Microscopic Reviewed; Nitrate Urine Negative (Negative); Non Pathogenic Casts >20; Protein Urine 2+ mg/dL (Negative); Specific Grav Ur 1.031 (1.001-1.035); Squamous Epithelial Cell Urine Few /hpf (Few); Urobilinogen Urine 0.2 mg/dL (<2.0); WBC Urine 0-5 /hpf
[2022-09-18 16:00] LABS: Add Urine Microscopic? YES
[2022-09-18] MEDS: SODIUM CHLORIDE 0.9% IV 1,000 ML 999 ML IV CONT (16:08)
[2022-09-18] MEDS: HYDROmorphone HCL INJ (*CRX) 1 MG/ML SYR 0.5 MG IV PUSH (16:10)
[2022-09-18] MEDS: ONDANSETRON INJ 4 MG/2 ML VIAL IV PUSH (16:12)
[2022-09-18 17:58] LABS: Toxigenic C. Diff NEGATIVE (NEGATIVE)
[2022-09-18 18:02] VITALS: BP 143/70; PULSE 79; RESP 18; TEMP 36.9; O2SAT 100
== END 2022-09-18 18:12 | disposition home or self-care (01) ==
PROVIDERS: Emergency Provider Emergency Medicine
DX: R11.2 Nausea with vomiting, unspecified (principal); R19.7 Diarrhea, unspecified; N20.2 Calculus of kidney with calculus of ureter; I10 Essential (primary) hypertension; G47.33 Obstructive sleep apnea (adult) (pediatric); K21.9 Gastro-esophageal reflux disease without esophagitis; E66.01 Morbid (severe) obesity due to excess calories; Z68.41 Body mass index [BMI] 40.0-44.9, adult
CPT/HCPCS: 36415; 74177; 80053; 81001; 83690; 85025; 87045; 87269; 87272; 87427; 87493; 89055; 96365; 96375; 99284; J1170; J2405; J7030; Q9967

== ENCOUNTER → 2022-12-10 13:06 | Outpatient (CLI) | payer OTHER, SELFPAY ==
--- NOTE | ~2022-12-10 | XR_ITS ---
XR abdomen/kub 1V 12/10/2022 13:33 Indication: Right ureteral stone Procedure: KUB Comparison: CT dated 12/10/2022 Findings: There are calcifications in the right pelvis, largest consistent with distal right ureteral stone, largest measuring 1 cm greatest dimension. There is an IUD in the pelvis. Bowel gas pattern i s nonobstructive. Lung bases unremarkable. No acute osseous abnormality. Impression: 1: Distal right ureteral stone near the expected location of the UVJ measuring up to 1 cm. Reviewed, dictated and finalized at location L. Impression: 1: Distal right ureteral stone near the expected location of the UVJ measuring up to 1 cm.
--- NOTE | ~2022-12-10 | CT_ITS ---
EXAMINATION: CT abdomen pelvis wo con DATE: 12/10/2022 13:33 INDICATION: Right ureteral stone. TECHNIQUE: Computed tomography (CT) of the abdomen and pelvis was performed without intravenous contr ast. Automated exposure control and iterative reconstruction technique were employed. The dose-length product was 990.51 mGy-cm. COMPARISON: CT abdomen and pelvis 09/18/2022 FINDINGS: The visualized portions of the lung bases demonstrate mild atelectasis. There is mild scarr ing in paraspinal right lower lobe. No pleural effusion. The heart size is normal. No pericardial eff usion. The liver, gallbladder, spleen, pancreas, adrenal glands, and left kidney are normal. There is moderate right hydronephrosis and hydroureter. There are 7 mm and 3 mm stones in distal right ureter . There is an intrauterine device in expected position. There are no dilated loops of bowel. The appe ndix is normal. There are no pathologically enlarged lymph nodes. There is no free intraperitoneal fl uid. There is severe lower lumbar spondylosis. IMPRESSION: 1. 7 mm and 3 mm stones in distal right ureter with moderate right hydronephrosis and hydroureter. Reviewed, dictated and finalized at location E. IMPRESSION: 1. 7 mm and 3 mm stones in distal right ureter with moderate right hydronephros is and hydroureter.
== END ==
PROVIDERS: PCP Emergency Medicine; Visit Provider Nurse Practitioner
DX: N20.1 Calculus of ureter (principal); N13.30 Unspecified hydronephrosis; N13.4 Hydroureter
CPT/HCPCS: 74018; 74176

== ENCOUNTER 2022-12-21 15:41 | Outpatient (CLI) | payer OTHER, SELFPAY ==
--- NOTE | 2022-12-21 15:39 | ECG_ITS ---
Measurements Intervals [place] Rate: 57 P: 24 TN: 172 QRS: 31 QRSD: 93 T: 32 QT: 388 QTc: 381 Interpretive Statements SINUS BRADYCARDIA COMPARED TO ECG 09/10/2020 16:40:33 SINUS BRADYCARDIA NOW PRESENT Electronically Signed On 12-22-2022 14:06:06 CDT by Melani De La Rosa M.D.
== END 2022-12-21 15:42 | disposition home or self-care (01) ==
PROVIDERS: PCP Emergency Medicine; Visit Provider Urology
DX: Z01.818 Encounter for other preprocedural examination (principal); N20.1 Calculus of ureter; I10 Essential (primary) hypertension; R00.1 Bradycardia, unspecified
CPT/HCPCS: 87086; 93005

== ENCOUNTER 2022-12-25 04:23 | Day surgery (SDC) | payer OTHER, SELFPAY ==
[2022-12-18 09:30] VITALS: BMI 40.6
--- NOTE | 2022-12-18 09:35 | PC.NURSE ---
Report to the Outpatient Waiting Room, entrance under the green pavilion located off [facility], at time 10:00 on date 12/25/22. Planned Procedure Time: 12:00. Time changes happen often and if your time is changed the preop area will call you the afternoon before. - You and your visitor will be asked to self-screen and do not enter if you have any COVID symptoms. - A mask is optional within the hospital at this time. Patients may have clear liquids (water, carbonated beverages, clear teas, apple juice) until 3 hours prior to surgery (9:00) with a maximum of 20 ounces. - No food from midnight until time of surgery Take the following medications with a SIP of water the morning of surgery: NONE DO NOT STOP ANY OF YOUR OTHER PRESCRIPTION MEDICATIONS PRIOR TO SURGERY EXCEPT THE FOLLOWING Medications to discontinue per physician: NABUMETONE Date to take last dose: PT HAS ALREADY STOPPED Please no make-up, nail belarusian, hairspray, perfume, deodorant, or body powder the day of surgery. No jewelry (including any body piercings) or valuables the day of surgery, leave them at home. Please take a shower or bath the night before, or the morning of, surgery with an antibacterial soap. Wear comfortable, loose fitting clothing. - Jewelry must be removed prior to entering the operating room. Rings and piercings that are not removed may be cut off. - The hospital will not accept responsibility for valuables. - Please leave all valuables, including medications, at home the day of surgery. If you are going home after surgery, a licensed auto crane driver must drive you home. - NO public transportation without another adult if you receive anesthesia. - We recommend that an adult stay with you for 24 hours following discharge. - We also recommend that you do not drive, make important decision, drink alcoholic beverages, or take any drugs that were not prescribed by your health care provider for at least 24 hours after your discharge time. Follow any additional instructions given to you from your surgeon. If you or anyone in your household have experienced Covid symptoms in the past week, please notify your surgeon or the nurse liaison at the phone number below for possible testing. Telephone instructions given to PT - EVELYN PALUMBO and asked if any additional questions and then verbalized understanding. Patient advised to call surgeon office or pre surgery nurse liaison [phone] if any additional questions.
[2022-12-25] VITALS (7 sets, daily range): BP systolic 117–147; BP diastolic 56–69; PULSE 54–72; RESP 11–20; TEMP 36–37.1; O2SAT 100
--- NOTE | ~2022-12-25 | XR_ITS ---
EXAMINATION: XR retrograde pyelo w/stent RT INDICATION: Right retrograde urethrogram with stent TECHNIQUE: Three intraoperative fluoroscopic images are submitted for review. Total fluoroscopic time is 6.1 seconds COMPARISON: None available FINDINGS: Fluoroscopic images demonstrate mild right hydroureter. The upper portion of an internal ur eteral stent coils in the expected location of the right renal pelvis. IMPRESSION: 1. Please refer to procedure note for full details. Reviewed, dictated and finalized at location F.
--- NOTE | ~2022-12-25 | XR_ITS ---
EXAMINATION: XR abdomen/kub 1V DATE: 12/25/2022 12:01 INDICATION: Right renal stone. TECHNIQUE: A supine view of the abdomen on 2 radiographs was obtained. COMPARISON: Abdomen radiographs 12/10/2022, CT abdomen and pelvis 12/10/2022 FINDINGS: There are no dilated loops of bowel. There is an intrauterine device in expected position. There are 7 mm and 3 mm stones at right ureterovesicular junction. There are phleboliths in the pelvi s. IMPRESSION: 1. 7 mm and 3 mm stones at right ureterovesicular junction. Reviewed, dictated and finalized at location A.
--- NOTE | 2022-12-25 11:19 | WPDHPUPDATE1 ---
History and Physical Update Update Date/Time: 12/25/22 11:19 History and Physical has been reviewed, including an updated exam of the patient. There are NO changes in the patient's condition. Risks, benefits, and alternatives have been discussed and questions answered. Patient agrees to proceed with procedure. Proceed with cystoscopy, right retrograde pyelogram, right ureteroscopy with laser, stone extraction, stent placement
[2022-12-25] MEDS: LACTATED RINGERS 1,000 ML 30 ML IV CONT ×2 (12:30→14:05)
--- NOTE | 2022-12-25 13:03 | WPDANESEPPF ---
Anes - Initial Pre Proc Eval Procedure: Operation Date: 12/25/22 13:00 Proposed Procedures p Cystoscopy, Right Ureteroscopy, Right Retrograde Pyelogram, Holmium Laser Procedure, Right Ureteral Stent Placement - Jeffrey Trotter MD Date/Time: 12/25/22 13:03 Surgeon: Jeffrey Trotter MD Pre Op Diagnosis: right ureteral stone Patient Data Age: 62 Gender: F Height: 1.55 m Weight: 98.3 kg Last Vital Signs Temp 36.0 C L 12/25/22 11:53 Pulse 57 L 12/25/22 11:53 Resp 18 12/25/22 11:53 BP 136/69 12/25/22 11:53 Pulse Ox 100 12/25/22 11:53 O2 Del Method Room Air 12/25/22 11:53 Allergies Allergy/AdvReac Type Severity Reaction Status Date / Time naproxen [From Aleve] AdvReac Gastrointestinal Verified 12/25/22 12:00 Upset Sulfa (Sulfonamide AdvReac Congested Verified 12/25/22 12:00 Antibiotics) Home Medications Medication Instructions Recorded Confirmed Type allopurinol 100 mg tablet 100 mg PO BID 09/04/20 12/25/22 History apremilast 30 mg tablet (Otezla) 30 mg PO BID 09/04/20 12/25/22 History atenolol 50 mg tablet 50 mg PO HS 09/04/20 12/25/22 History folic acid 1 mg tablet 1 mg PO DAILY 09/04/20 12/25/22 History lisinopril 10 mg tablet 5 mg PO QAM 09/04/20 12/25/22 History methotrexate sodium 2.5 mg tablet 12.5 mg PO DIRECTED 09/04/20 12/25/22 History nabumetone 500 mg tablet (Relafen) 1,000 mg PO DAILY 09/04/20 12/25/22 History omeprazole magnesium 20 mg 20 mg PO DAILY 09/06/20 12/25/22 History tablet,delayed release (Prilosec OTC) rosuvastatin 10 mg tablet 10 mg PO HS 12/18/22 12/25/22 History tamsulosin 0.4 mg capsule 0.4 mg PO HS 12/18/22 12/25/22 History Patient hx anesthesia problems: post op nausea/vomiting Family hx anesthesia problems: none Results Review: All pre-operative results and documents have been reviewed as part of the pre-operative evaluation. [facility] Past Medical History Medical History GERD (gastroesophageal reflux disease) Hypertension Morbid obesity LANNY (obstructive sleep apnea) Social History Social History Smoking status: Never smoker Alcohol intake: current Alcohol use details: RARE Substance use: never Substance use type: does not use Living arrangements: alone Gender identity (if verbalized by the patient): Female Spiritual care concerns: No Anes - Eval Final PreProcedure Day of Procedure 12/25/22 13:03 Patient weight: morbidly obese Heart: regular rate and rhythm Lungs: clear to auscultation Airway: Mallampati scale class III Neurological: alert and oriented Last oral intake: >/= 8 hours ASA classification: III Emergent: no Anesthetic plan: proceed Anesthesia type and monitoring: general LMA and standard monitoring Results Review: All pre-operative results and documents have been reviewed as part of the pre-operative evaluation. Informed Consent: The patient's anesthetic plan and its attendant risks and benefits were discussed with the patient/family/POA. Questions were solicited and answers provided to the satisfaction of the patient/family/POA.
[2022-12-25] MEDS: SCOPOLAMINE 1.5 MG PATCH TRANSDERM (13:23)
[2022-12-25] MEDS: ceFAZolin 2 GM/D5W 50 ML 2 GM/50 ML BAG IVPB (13:27)
--- NOTE | 2022-12-25 14:00 | P.OP_ITS ---
Procedure Note - Detailed Date of Procedure 12/25/22 Pre-op Diagnosis right ureteral stone Post-op Diagnosis Same Procedure Performed Cystoscopy, right retrograde pyelogram, right ureteroscopy with laser, stone extraction, right ureteral stent placement 4.8 [place] contour Surgeon Jeffrey Trotter MD Anesthesia General Description of Procedure Patient is taken to the operative suite correctly identified. Once anesthesia was obtained she was placed in dorsal lithotomy position and prepped and draped usual sterile fashion. Twenty-two [place] scope inserted the bladder. There were no tumors noted. The right ureteral orifice was edematous and raised. We were able to place a wire into that orifice past the stone. We dilated with an 8/10 dilator. Rigid ureteral scope was then inserted. The stone was too large to retract we used a 200 micron fiber to fragment the stone in multiple pieces. These were sent for analysis. Reinspection revealed no residual stones. Pyelogram simply revealed a dilated ureter. At this point a 4.8 [place] contour stent was placed with the proximal end coiled in the renal pelvis and the distal in the bladder. Bladder was drained. 2% viscous lidocaine was inserted urethra patient is taken recovery stable condition. She will be discharged home and follow-up in the office in a week for stent removal. This completes sedation please send a copy to the office Drains Yes Packing No Pathology Yes Complications No immediate complications Condition Stable Disposition PACU
== END 2022-12-25 16:02 | disposition home or self-care (01) ==
PROVIDERS: PCP Emergency Medicine; Visit Provider Urology
PROC: (CPT 52352; principal; 2022-12-25 13:00)
DX: N20.1 Calculus of ureter (principal); I10 Essential (primary) hypertension; G47.33 Obstructive sleep apnea (adult) (pediatric); K21.9 Gastro-esophageal reflux disease without esophagitis; E66.01 Morbid (severe) obesity due to excess calories; Z68.41 Body mass index [BMI] 40.0-44.9, adult
CPT/HCPCS: 52356; 74018; 74420; 82365; 87086; 88300; 93005; A9270; C1769; C2617; J0690; J1100; J2250; J2405; J2704; J3010; J7120

== ENCOUNTER → 2023-01-28 12:41 | Outpatient (CLI) | payer OTHER, SELFPAY ==
--- NOTE | ~2023-01-28 | US_ITS ---
EXAMINATION: US retroperitoneal comp DATE: 01/28/2023 13:10 INDICATION: Right ureteral stone. TECHNIQUE: Multiple ultrasound grayscale images of the kidneys were obtained. COMPARISON: Ultrasound 11/16/2020, CT abdomen and pelvis 12/10/2022 FINDINGS: The right kidney measures 11.9 x 4.8 x 4.9 cm. The left kidney measures 11.6 x 4.8 x 4.6 cm. The kidn eys demonstrate normal parenchymal echogenicity. There is no hydronephrosis. The bladder is not well distended. There is diffuse hepatic steatosis. IMPRESSION: 1. Normal kidneys. No hydronephrosis. 2. Diffuse hepatic steatosis. Reviewed, dictated and finalized at location E.
== END ==
PROVIDERS: PCP Emergency Medicine; Visit Provider Urology
DX: N20.1 Calculus of ureter (principal); K76.0 Fatty (change of) liver, not elsewhere classified
CPT/HCPCS: 76770

== ENCOUNTER → 2023-04-27 16:03 | Outpatient (CLI) | payer OTHER, SELFPAY ==
--- NOTE | ~2023-04-27 | MM_ITS ---
EXAMINATION: MM screening [facility] BI w shala HISTORY: Screening mammogram TECHNIQUE: Craniocaudal and mediolateral oblique 3-D tomosynthesis images were obtained and synthetic 2-D images were generated. CAD analysis was submitted and interpreted. COMPARISON: 10/06/2019, 06/04/2016, 05/25/2015 BREAST PARENCHYMAL COMPOSITION:The breasts are almost entirely fatty FINDINGS: Intramammary lymph nodes are unchanged. No suspicious mass, calcification, or architectural distortion are identified in either breast to suggest malignancy. There has been no suspicious inter benja change. IMPRESSION: No mammographic evidence of malignancy. Recommend routine screening mammography in one year. BI-RADS Category 2: Benign finding(s). Reviewed, dictated and finalized at location .
== END ==
PROVIDERS: PCP Emergency Medicine; Visit Provider Emergency Medicine
DX: Z12.31 Encounter for screening mammogram for malignant neoplasm of breast (principal)
CPT/HCPCS: 77063; 77067

== ENCOUNTER → 2023-06-28 16:44 | Outpatient (CLI) | payer OTHER, SELFPAY ==
--- NOTE | ~2023-06-28 | XR_ITS ---
EXAMINATION: XR shoulder LT min 2V DATE: 06/28/2023 17:23 INDICATION: Arthralgia at the left shoulder TECHNIQUE: AP internally and externally rotated, AP oblique externally rotated and axillary views of the left shoulder were obtained. COMPARISON: None FINDINGS: Normal alignment. No fracture. Glenohumeral joint is normal. Minimal acromioclavicular osteoarthriti s. Small anterior subacromial spur. Soft tissues are unremarkable. IMPRESSION: Minimal left acromioclavicular osteoarthritis. Reviewed, dictated and finalized at location A. ROAD ACCOUNTANT
--- NOTE | ~2023-06-28 | XR_ITS ---
EXAMINATION: XR shoulder RT min 2V DATE: 06/28/2023 17:23 INDICATION: Bilateral shoulder arthralgias TECHNIQUE: 1. AP internally and externally rotated, AP oblique externally rotated and axillary views of the righ t shoulder were obtained. 2. AP internally and externally rotated, AP oblique externally rotated and axillary views of the left shoulder were obtained. COMPARISON: Right shoulder radiographs dated 12/10/2016 FINDINGS: Right shoulder: Normal alignment. No acute fracture. Glenohumeral joint is normal. A small loose osteochondral body previously seen along the inferior margin of the glenoid appears to have moved now significantly larg er and positioned along the posterior superior rim of the glenoid. Mild acromioclavicular osteoarthri tis. Small anterior subacromial spur. Soft tissues are unremarkable. Left shoulder: Normal alignment. No acute fracture. Glenohumeral joint is normal. Mild acromion clavicular osteoarth ritis. IMPRESSION: 1. Mild osteoarthritis at the bilateral acromioclavicular joints. 2. Large likely osteochondral body along the posterior superior rim of the right glenoid. Reviewed, dictated and finalized at location A. WASHER IMPRESSION: 1. Mild osteoarthritis at the bilateral acromioclavicular joints. 2. Large likely osteochondral body along the posterior superior rim of the righ t glenoid.
== END ==
PROVIDERS: PCP Emergency Medicine; Visit Provider Physician Assistant Medical
DX: M19.011 Primary osteoarthritis, right shoulder (principal); M19.012 Primary osteoarthritis, left shoulder
CPT/HCPCS: 73030

== ENCOUNTER 2024-11-20 02:52 | Day surgery (SDC) | payer OTHER, SELFPAY ==
[2024-11-13 14:10] VITALS: BMI 37.8
--- NOTE | 2024-11-13 14:15 | PC.NURSE ---
Charge nurse, Farrah, spoke with Dr. Weinberg in regards to patient's daily Relafen. Per Dr. Robertson, patient okay to continue taking medication/no need to hold prior to procedure.
--- OUTSIDE RECORDS SUMMARY | 2024-11-20 02:54 | XMS_ITS | Continuity of Care Document ---
Author Organization [facility] Address [address] [place] [address] Phone Care Team Providers Care Gill Tender Name Role Phone Rogers OD, Ti Unavailable Unavailable Procedures Procedure Date CL Replacement - Vistakon Disp W/BW Soft Tax - Medical No Charge Contact Lens Check No Charge Contact Lens Check No Charge Contact Lens Check No Charge Contact Lens Check Eye Exam, New Patient Refraction Advance Directives Directive Yes / No Effective Date File Name No Information Encounters Encounter Description Practice Location Reason(s) For Visit Diagnoses Date Provider Providers Copied on Encounter [facility], [address] [place] [address] [address], [place], [place], [id number], tel:[phone] [facility] No Information 9 Rogers OD Ti. [address] , [address], [place], [place], [facility], [place]. tel:[phone] [facility], [address], [place], [place], [id number], [place] tel:[phone] [facility] No Information 3200 9 Rogers OD Ti. [address], [address], [place], [place], [facility], [place]. tel:[phone] [facility], [address] [place] [address] [address], [place], [place], [id number], tel:[phone] [facility] No Information Jan- 7-200 9 Rogers OD Ti. [address] [facility] , [address], [place], [place], [facility], . tel:[phone] [facility], [id number] [place] [address] [address], [place], [place], [id number], tel:[phone] [facility] No Information Jan-1 0-200 9 Rogers OD Ti. [address] [facility] , [address], [place], [facility], . tel:[phone] [facility], [address], [place], [place], [id number], tel:[phone] [facility] No Information Alejandro-2 6-200 9 Rogers OD Ti. [address] [facility] , [address], [place], [facility], . tel:[phone] [facility], [address] [place] [address] [address], [place], [place], [id number], tel:[phone] [facility] No Information Alejandro-0 4-200 9 Rogers OD Ti. [address] [facility] , [address], [place], [facility], . tel:[phone] Family History Family Member Type Diagnosis Age At Onset No Information Payers Payer name Insurance type Covered libertarian ID Authoriza tion(s) No Information Social History Type Description Quantity Date Captured Comments Sex Female Smoking Status No Information Chief Complaint And Reason For Visit No Information Reason For Referral Reason For Referral No Information History Of Present Illness Encounter Date Complaint History Of Prese nt Illness No Information Functional Status Date Functional Assessmen t No Information Instructions Date Instruction Additional Infor mation No Information Assessments Type Assessment Date No Information Patient Care Teams Name Effective Dates (start - stop) Status Members No Information
--- OUTSIDE RECORDS SUMMARY | 2024-11-20 02:54 | XMS_ITS | Encounter Summary ---
Author Organization [facility] Address [address] [place] [address] Phone Care Team Providers Care Manager Spanish Name Role Phone Emeka Gonzalez MD Unavailable [phone] Liam Menjivar MD Primary Care Provider + Encounter Details Date Type Department Care Team (Late st Contact Info) Description 10/03/2024 Results Follow-Up [facility] [address] [place] [address] Emeka Gonzalez MD [address] [facility] [address] [place] [address] Social History Tobacco Use Types Packs/Day Years Used Date Smoking Tobacco: Never Assessed Comments Unknown Sex and Gender Information Value Date Recorded Sex Assigned at Not on file Legal Sex Female 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
--- OUTSIDE RECORDS SUMMARY | 2024-11-20 02:54 | XMS_ITS | Data Portability ---
Author Organization [facility] Address [address] [place] [address] Care Team Providers Care Irs Agent Name Role Phone CHERELLE TANG Primary Care Provider Assessment Encounter Date Assessment Date Assessment LastModified by Organization Details LastModified Time 02/01/2024 02/01/2024 Annual gynecological exam performed. Patient will come back in a year unless there are new symptoms. fred Not available 02/01/2024 12:12:29 Plan of Treatment Reminders Order Date Submit Date Provider Last Modified By Organization Details Last Modified Time Details Appointments None recorded. Lab urinalysis , dipstick 2023 024 fred [place], [address], [address], [place], [address], 13:03:00 Referral None recorded. Procedures None recorded. Surgeries None recorded. Imaging None recorded. Medication Orders None recorded. Patient TargetsNo targets recorded. Patient InstructionsNo instructions recorded. Reason for Referral None Reported. Results Created Date Observation Date Name Description Value Unit Range Abnormal Flag Note LastModifiedBy Organization Detail LastModifiedTime 02/01/20 24 02/01/2024 IMAGE GUIDE D PAP AND HPV REGAR DLESS image guided Pap, HPV regardless of Pap result SEE RESULT S BELOW CASE REPOR T: Cytol ogy Gynec ologi lisa Repor t Case: [id number] Autho rizin g Provi jcarlos: Viviane Oliva MD Colle cted: 01/31 1409 Order ing Locat ion: [place] Patho logy Recei maryan: 02/01 0139 First Scree n: Tran Cheung ret, CT Speci men: Dayana yu Pap - Image d, Cervi x STATE MENT OF ADEQU ACY: Satis facto ry for evalu ation Trans forma tion zone compo nent canno t be defin itive ly ident ified due to the prese nce of atrop hy or other hormo nal grady es ----- ----- ----- ----- ----- ----- ----- ----- ----- ----- ----- ----- ----- ----- ----- ----- ----- ---- FINAL DIAGN OSIS: Negat ezra for Intra epith elial Madi n or Vidal callahan ([facility]) . Atrop hic cell astrid santoyo. Elect daniel whitaker trace d by Tran Cheung ret, CT on 2023 at 6:46 AM ----- ----- ----- ----- ----- ----- ----- ----- ----- ----- ----- ----- ----- ----- ----- ----- ----- ---- HPV RESUL TS: HPV mRNA E6/E7 : No HPV mRNA Detec francisco NOTE: This high risk HPV mRNA assay detec ts fourt een high- risk HPV types (16, 18, 31, 33, 35, 39, 45, 51, 52, 56, 58, 59, 66, 68) witho ut diffe renti ation . COMME NT: This speci men was revie wed by a Cytot echno logis t and/o r Patho logis t (as indic ated in this repor t) after evalu ation using the Thinp rep Imagi ng Syste m. CLINI LISA INFOR MATIO N: Menst rual Statu s: LMP (if appli cable ): Clini lisa Histo ry/Pr eviou s Pap: Type of Neopl adam (if appli cable ): Signi fican t Clini lisa Findi ngs: Other Histo ry: Hormo richar (if appli cable ): PAP EDUCA MELISSA L NOTE: The Pap Test is a scree aimee test with an inher ent false negat ezra rate. Liqui d-bas ed sampl ing may decre ase, but will not elimi jay jay, false negat ezra resul ts. A negat ezra resul t does not precl ude the prese nce and/o r devel opmen t of disea se, since the prese nce of abnor mal cells in the sampl e depen ds on the locat ion of the lesio n and sampl ing techn ique. Eliza nued regul ar scree aimee is the best metho d of cance r preve ntion . If repor francisco cytol ogic findi ng do not corre late with physi lisa and/o r histo rical findi ngs, furth er inves tigat ion is recom elizabeth d, as clini edith warra nted. Not Available [facility] (Lab) [address], [place], [address], 02/05/2024 07:49:40 02/01/20 24 02/01/2024 urina lysis , dipst ick Leukocytes Normal Not Available Gabriel vallejo [address], [place], [address], 02/01/2024 13:02:05 02/01/20 24 02/01/2024 urina lysis , dipst ick Nitrite Normal Not Available [facility] [address], [place], [address], 02/01/2024 13:02:05 02/01/20 24 02/01/2024 urina lysis , dipst ick Urobilinogen Normal Not Available Jazmin medina [address], [place], [address], 02/01/2024 13:02:05 02/01/20 24 02/01/2024 urina lysis , dipst ick Protein Trace Not Available [place] [address], [place], [address], 02/01/2024 13:02:05 02/01/20 24 02/01/2024 urina lysis , dipst ick pH 5 Not Available [facility] [address], [place], [address], 02/01/2024 13:02:05 02/01/20 24 02/01/2024 urina lysis , dipst ick Blood trace Not Available [facility] [address], [place], [address], 02/01/2024 13:02:05 02/01/20 24 02/01/2024 urina lysis , dipst ick Specific Shannon 1.030 Not Available [facility] [address], [place], [address], 02/01/2024 13:02:05 02/01/20 24 02/01/2024 urina lysis , dipst ick Ketone Normal Not Available [facility] [address], [place], [address], 02/01/2024 13:02:05 02/01/20 24 02/01/2024 urina lysis , dipst ick Bilirubin Normal Not Available [facility] elias [address], [place], [address], 02/01/2024 13:02:05 02/01/20 24 02/01/2024 urina lysis , dipst ick Glucose Normal Not Available [facility] [address], [place], [address], 02/01/2024 13:02:05 02/01/20 24 02/01/2024 urina lysis , dipst ick Appearance Cloudy Not Available [facility] [address], [place], [address], 02/01/2024 13:02:05 02/01/20 24 02/01/2024 urina lysis , dipst ick Color Dark yellow Not Available [facility] [address], [place], [address], 02/01/2024 13:02:05 Result Notes None recorded. 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) w/o abn findings;P ractice ID: 0001 Not Available [facility] 0 19:01:41 Evaluatio n finding Active 2019 Hematuria, unspecifie d;Practice ID: 0001 Not Available [facility] 0 19:01:41 Screening for malignant neoplasm of rectum Active 2019 Encounter for screening for malignant neoplasm of rectum;Pra ctice ID: 0001 Not Available [facility] 0 19:01:41 Amenorrhe a 23619224 Active 2019 Amenorrhea , unspecifie d;Practice ID: 0001 Not Available [facility] 0 19:01:[address] Concept Active 2018 Encntr for general adult medical exam w/o abnormal findings;P ractice ID: 0001 Not Available [facility] 0 19:01:41 test negative 990745290 Active 2012 Negative Test;Pract ice ID: 0001 Not Available [facility] 0 19:01:41 Uses IUD (intraute rine device) contracep tion 533685267 Active 2013 Surveillan ce of intrauteri ne contracept ezra device;Pra ctice ID: 0001 Not Available [facility] 0 19:01:41 Insertion of intrauter ine contracep tive device Active 2012 INSERTION OF IUD;Practi ce ID: 0001 Not Available [facility] 0 19:01:41 Abdominal pain 45192737 Active 2013 Abdominal pain, other specified site;Pract ice ID: 0001 Not Available [facility] 0 19:01:41 Family planning surveilla nce Active 2013 Contracept ezra surveillan ce, unspecifie d;Practice ID: 0001 Not Available [facility] 0 19:01:41 Finding of trunk structure 448792585 Active 2013 Abdominal or pelvic swelling, mass, or lump, generalize d;Practice ID: 0001 Not Available [facility] 0 19:01:41 Screening for malignant neoplasm of cervix Active 2011 Pap Smear;Prac ridge ID: 0001 Not Available [facility] 0 19:01:42 Specializ ed medical examinati on Active 2011 Routine gynecologi lisa examinatio n;Practice ID: 0001 Not Available [facility] 0 19:01:42 Vulval and/or perineal noninflam matory disorders 221238463 Active 2012 Other specified noninflamm atory disorders of vulva and perineum;P ractice ID: 0001 Not Available [facility] 0 19:01:42 Dysplasia of vagina 5739005 Active 2012 Dysplasia of vagina;Pra ctice ID: 0001 Not Available [facility] 0 19:01:42 Neoplasm of uncertain behavior of skin 08493683 Active 2012 Lesion Uncertain Skin;Pract ice ID: 0001 Not Available [facility] 0 19:01:42 Vaginitis and vulvovagi nitis Active 2012 Vaginitis and vulvovagin itis, unspecifie d;Practice ID: 0001 Not Available [facility] 0 19:01:43 Microscop ic hematuria 534017332 Active 2012 HEMATURIA MICROSCOPI C;Practice ID: 0001 Not Available [facility] 0 19:01:43 Problem Notes None recorded. Procedures Surgical History Date Name Laterality Status Provider Name and Address Organization Details Recorded Time 02/01/20 24 IUD Removal completed MARIAN TAO MD [address], [place], [address], [place] [facility] 02/03/2024 00:23:53 02/29/20 13 Date of Last Pap Smear completed Tali Thompson [facility] 02/01/2024 12:32:47 Laparoscopy completed Tali Savagejose [facility] 02/01/2024 11:58:15 Imaging Results None recorded. Procedure Notes None recorded. Medical Equipment None Reported. Medications Name Sig Start Date Stop Date Status Note LastModified by Organization Details LastModified Time Mirena 21 mcg/24 hr (up to 8 years) 52 mg intrauter ine device active Prescrib ed Elsewher e: Yes Loca tion: [facility] odify By: [email or web address] trick En counter DateTime : 08/03/19 14 01:15:00 PM Not Available Not Available Not Available nabumeton e 750 mg tablet take 1 tablet by oral route 2 times every day active Prescrib ed Elsewher e: Yes Loca tion: [facility] odify By: Encount er DateTime : 07/27/19 19 03:30:00 PM Not Available Not Available Not Available phenazopy ridine 200 mg tablet TAKE 1 TABLET BY MOUTH THREE TIMES A DAY FOR 2 DAYS 01/31 completed Not Available Not Available Not Available prednison e 5 mg tablet TAKE 4 TABLETS BY MOUTH WITH BREAKFAS T FOR 3 DAYS AND TAPER BY 1 TABLET EVERY 3 DAYS TILL OFF 01/31 completed Not Available Not Available Not Available atenolol 25 mg tablet take 1 tablet by oral route every day active Prescrib ed Elsewher e: Yes [facility] By: santo Kilgore nter DateTime : 02/24/20 12 08:45:12 PM Not Available Not Available Not Available folic acid 20 mg capsule active Prescrib ed Elsewher e: Yes Loca tion: [facility] odify By: cmedical Encount er DateTime : 02/29/20 13 03:30:00 PM Not Available Not Available Not Available Zyrtec 10 mg tablet take 1 tablet by oral route every day active Prescrib ed Elsewher e: Yes Loca tion: [facility] odify By: Encount er DateTime : 07/27/19 19 03:30:00 PM Not Available Not Available Not Available allopurin ol 100 mg tablet active Not Available Not Available Not Available methotrex ate sodium 25 mg/mL injection solution inject 0.5 millilit er by intramus cular route every week active Prescrib ed Elsewher e: Yes Loca tion: [facility] odify By: sonnydical Encount er DateTime : 02/29/20 13 03:30:00 PM Not Available Not Available Not Available omeprazol e 40 mg capsule,d elayed release take 1 capsule by oral route every day before a meal active Prescrib ed Elsewher e: Yes [facility]oca [facility] By: kathy championunter DateTime : 10/23/19 17 03:30:00 PM Not Available Not Available Not Available methotrex ate sodium 2.5 mg tablet active Not Available Not Available Not Available Prilosec 10 mg capsule,d elayed release take 2 capsule by oral route every day before a meal 10/22 completed Prescrib ed Elsewher e: Yes Loca tion: [facility] odify By: kathy championunter DateTime : 02/24/20 12 08:45:12 PM Not Available Not Available Not Available lisinopri l 10 mg tablet active Not Available Not Available Not Available Prednison e Intensol 5 mg/mL oral concentra te take 1 millilit er by oral route 4 times every day 01/31 completed Prescrib ed Elsewher e: Yes Loca tion: [facility] odify By: sonny Encount er DateTime : 02/29/20 13 03:30:00 PM Not Available Not Available Not Available omeprazol e 20 mg capsule,d elayed release active Not Available Not Available Not Available folic acid 1 mg tablet active Not Available Not Available Not Available allopurin ol 300 mg tablet take 1 tablet by oral route every day active Prescrib ed Elsewher e: Yes [facility]oca [facility]: [facility] By: kathy knowleser DateTime : 10/23/19 17 03:30:00 PM Not Available Not Available Not Available lisinopri l 2.5 mg tablet take 1 tablet by oral route every day active Prescrib ed Elsewher e: Yes [facility] By: pedritohar tz Encou nter DateTime : 02/24/20 12 08:45:12 PM Not Available Not Available Not Available atenolol 50 mg tablet active Not Available Not Available Not Available nabumeton e 500 mg tablet active Not Available Not Available Not Available Calcium 500 + D 500 mg-5 mcg (200 unit) tablet active Prescrib ed Elsewher e: Yes Loca tion: [facility] odify By: cmedical Encount er DateTime : 02/29/20 13 03:30:00 PM Not Available Not Available Not Available Alavert 10 mg tablet take 1 tablet by oral route every day 02/28 completed Prescrib ed Elsewher e: Yes Loca tion: [facility] odify By: cmedical Encount er DateTime : 02/24/20 12 08:45:12 PM Not Available Not Available Not Available rosuvasta tin 10 mg tablet active Not Available Not Available Not Available nitrofura ntoin monohydra te/macroc rystals 100 mg capsule TAKE 1 CAPSULE BY MOUTH EVERY 12 HOURS FOR 5 DAYS 01/31 completed Not Available Not Available Not Available Enbrel 25 mg/0.5 mL (0.5 mL) subcutane ous syringe inject 1 millilit er by subcutan eous route every week using 2 separate injectio n sites 07/27 completed Prescrib ed Elsewher e: Yes Loca tion: [facility] odify By: Encount er DateTime : 06/08/20 13 01:45:00 PM Not Available Not Available Not Available Otezla 30 mg tablet take 1 tablet by oral route 2 times every day approxim ately 12 hours apart active Not Available Not Available No t Available Vitals Date Recorded Body weight Body mass index (BMI) Body height Systolic blood pressure Diastolic blood pressure Provider Name and Address Organization Details Last Updated DateTime 02/01/2024 251912.2 5 g 42.2 kg/m2 154.94 cm 117 mm[Hg] 75 mm[Hg] Tali Thompson [facility] 4 12:12:13 Social History Question Answer Notes LastModified by Organizat ion Details LastModified Time What Is Your Level Of Alcohol Consumption? Occasional Information not available 02/01/2024 Are You Blind Or Do You Have Difficulty Seeing? No Information not available 02/01/2024 What Is Your Level Of Caffeine Consumption? Occasional Information not available 02/01/2024 How Much Tobacco Do You Chew? None Information not available 02/01/2024 In The 14 Days Before Symptom Onset, Have You Had Close Contact With A Laboratory-confir med COVID-19 While That Case Was Ill? No Information not available 02/01/2024 In The 14 Days Before Symptom Onset, Have You Had Close Contact With A Person Who Is Under Investigation For COVID-19 While That Person Was Ill? No Information not available 02/01/2024 Have You Been To An Area Known To Be High Risk For COVID-19? No Information not available 02/01/2024 Are You Deaf Or Do You Have Serious Difficulty Hearing? No Information not available 02/01/2024 What Type Of Diet Are You Following? REGULAR Information not available 02/01/2024 What Is The Highest Grade Or Level Of School You Have Completed Or The Highest Degree You Have Received? 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 No Information not available 02/01/2024 Do You Use Your Seat Belt Or Car Seat Routinely? Yes Information not available 02/01/2024 Do You Have Smoke And Carbon Monoxide Detectors In Your Home? Yes Information not available 02/01/2024 How Much Tobacco Do You Smoke? No Information not available 02/01/2024 Do You Feel Stressed (tense, Restless, Nervous, Or Anxious, Or Unable To Sleep At Night)? [id number] Information not available 02/01/2024 Do You Use Any Illicit Or Recreational Drugs? No Information not available 02/01/2024 Do You Use Sunscreen Routinely? No Information not available 02/01/2024 Have You Used IV Drugs? No Information not available 02/01/2024 Sex: Unknown Functional Status Question Answer Note LastModified by Organization D etails LastModified Time Are you able to walk? YESWOREST Information not available 02/01/2024 Mental Status None recorded. Family History Relationship Description Onset Age of this Age Resolved Age Notes LastModified by Organization Details LastModified Time Mother Hypertensive disorder dswayne Not available 2023 11:57:44 Mother Diabetes mellitus dswayne Not available 2023 11:57:44 Son Diabetes mellitus dswayne Not available 2023 11:57:44 Brother Hypertensive disorder dswayne Not available 2023 11:57:44 Brother Diabetes mellitus dswayne Not available 2023 11:57:44 Sister Cerebrovascu lar accident dswayne Not available 11:57:44 Sister Hypertensive disorder dswayne Not available 2023 11:57:44 Sister Heart disease dswayne Not available 2023 11:57:44 Sister Diabetes mellitus dswayne Not available 2023 11:57:44 Paternal Grandfather Cerebrovascu lar accident dswayne Not available 11:57:44 Father Hypertensive disorder dswayne Not available 2023 11:57:44 Father Heart disease dswayne Not available 2023 11:57:44 Notes:Father: Diabetes melli tus, Hypertension Mother: Parkinson's disease, Supra nuclear palsy, Diabetes mellitus, Hypertension Paternal grandfather: Stroke Sister: Stroke, Congenital heart disease Medical History Condition Response Allergies (Food, seasonal, environmental ) Y Diabetes Y Arthritis Y High Cholesterol Y Acid Reflux (GERD) Y Kidney or Bladder Problems Y Hypertension Y Dermatologic Disorders Y Gynecological History Statement/Question Response Sexually Active? N STIs/STDs N Was last menstrual period normal Y Age of first menstrual cycle 10 HPV Vaccine N Date of Last Pap Smear 02/28/2013 Current Control Method IUD Age at First Child 29 LMP Unknown Obstetrics History GPAL:G 4 P 2 0 2 2 Type Value Full Term 2 Spontaneous 2 Living 2 Total 4 Past Encounters Encounter ID Performer Location Encounter Start Date Encounter Closed Date Diagnosis/Indication Diagnosis SNOMED-CT Code Diagnosis ICD10 Code Diagnosis Note [id number] MD Homero MONTEJO [address] [address] 02/01/2024 11:52:17 02/03/2024 09:46:34 Urinary symptoms 033771186 R39.9 Removal of intrauterine contraceptive device 6540131675 Z30.432 - IUD removed without issue- patient to rtc if bleeding occurs Gynecologi c examination 50910728 Z01.419 Well woman care- Cervical cancer screening: Pap smear obtained today, will follow up on the results with the patient as they become available- Breast cancer screening: mammogram completed- HPV immunizati on: does not qualify- STD testing: declined- hereditary cancer screening: does not qualify for testing Health Concerns Section Related Observation LastModified by Organization Detai ls LastModified Time None Recorded Concern Status LastModified by Organization Details LastModified Time None Recorded Advance Directives Directive None Recorded Payers Encounter Date Sequence Insurance Name Policy Number Policy Fernando Covered Member ID Fernando Member ID Guarantor Name 02/01/2024 1 [facility] [id number] Bren Sanders [id number] Bren Sanders Notes Date Note Type Note Provider Name and Address Organization Details Recorded Time 02/01/2024 text/html Presents today for her annual well-woman exam. Denies abnormal vaginal discharge. She is not sexually active. She has not noticed any changes or masses in her breasts. LMP 2013. at time of Mirena placement. No hx of abnormal mammograms or pap smears. Has a history of kidney stones. Thinks she passed one recently. Having some pressure and cramping. Would like checked for UTI. Mirena IUD in place since 2013. Needs removed. Denies bleeding since placement. MARIAN TAO MD [address], [place], [address], [facility] 02/03/2024 00:26:20 OBGyn Episode Ob Episode Information Episode Created Date Number of Fetuses Patient Bloodtype Patient rh Status Prepregnancy Weight lbs Domestic Partner Domestic Partner Phone Father Name Air Antisubmarine Officer Status 02/01/20 24 1 CLOSED Fetus Data First Name Last Name Admitted to NICU Weight (g) Sex Living Outcome Pediatric Complications Fetus ID Race Codes Race Delivery Type , Spontane ous [id number] Radu Calculation Initial Radu Date Initial Exam Date Initial Exam Provider Initial Ultrasound Date Last Menstrual Period Date Ultra Sound Weeks Gestation 0 Eighteen To Twenty Week Radu Update Ultra Sound Date Fundal Height At Umbil Quickening Date Ultra Sound Latest Weeks Gestation Final Radu Confirmed By Final Radu Confirmed Date Final Radu Date Ultra Sound Latest Days Gestation 0 0 Menstrual History Last Menstrual Date Menses Monthly On Bcp Conception Prior Menses Frequency Hcg Plus Date Menarche Onset Age Delivery Information Delivery Date Delivery Type Labor Anesthesia Weeks Gestation Incision Type Labor Labor Length Hrs Delivered By Post Complications Tubal Sterilization Discharge Date Comments 3 Discharge Information Feeding Method Contraceptive Method Maternal HG B and HCT Levels Ob Episode Information Episode Created Date Number of Fetuses Patient Bloodtype Patient rh Status Prepregnancy Weight lbs Domestic Partner Domestic Partner Phone Father Name Air Antisubmarine Officer Status 02/01/20 24 1 CLOSED Fetus Data First Name Last Name Admitted to NICU Weight (g) Sex Living Outcome Pediatric Complications Fetus ID Race Codes Race Delivery Type , Spontane ous [id number] Radu Calculation Initial Radu Date Initial Exam Date Initial Exam Provider Initial Ultrasound Date Last Menstrual Period Date Ultra Sound Weeks Gestation 0 Eighteen To Twenty Week Radu Update Ultra Sound Date Fundal Height At Umbil Quickening Date Ultra Sound Latest Weeks Gestation Final Radu Confirmed By Final Radu Confirmed Date Final Radu Date Ultra Sound Latest Days Gestation 0 0 Menstrual History Last Menstrual Date Menses Monthly On Bcp Conception Prior Menses Frequency Hcg Plus Date Menarche Onset Age Delivery Information Delivery Date Delivery Type Labor Anesthesia Weeks Gestation Incision Type Labor Labor Length Hrs Delivered By Post Complications Tubal Sterilization Discharge Date Comments 4 Discharge Information Feeding Method Contraceptive Method Maternal HG B and HCT Levels Ob Episode Information Episode Created Date Number of Fetuses Patient Bloodtype Patient rh Status Prepregnancy Weight lbs Domestic Partner Domestic Partner Phone Father Name Air Antisubmarine Officer Status 02/01/20 24 1 CLOSED Fetus Data First Name Last Name Admitted to NICU Weight (g) Sex Living Outcome Pediatric Complications Fetus ID Race Codes Race Delivery Type 3486.76 [id number] F Full Term [id number] Vaginal Delivery Radu Calculation Initial Radu Date Initial Exam Date Initial Exam Provider Initial Ultrasound Date Last Menstrual Period Date Ultra Sound Weeks Gestation 0 Eighteen To Twenty Week Radu Update Ultra Sound Date Fundal Height At Umbil Quickening Date Ultra Sound Latest Weeks Gestation Final Radu Confirmed By Final Radu Confirmed Date Final Radu Date Ultra Sound Latest Days Gestation 0 0 Menstrual History Last Menstrual Date Menses Monthly On Bcp Conception Prior Menses Frequency Hcg Plus Date Menarche Onset Age Delivery Information Delivery Date Delivery Type Labor Anesthesia Weeks Gestation Incision Type Labor Labor Length Hrs Delivered By Post Complications Tubal Sterilization Discharge Date Comments 0 Discharge Information Feeding Method Contraceptive Method Maternal HG B and HCT Levels Ob Episode Information Episode Created Date Number of Fetuses Patient Bloodtype Patient rh Status Prepregnancy Weight lbs Domestic Partner Domestic Partner Phone Father Name Air Antisubmarine Officer Status 02/01/20 24 1 CLOSED Fetus Data First Name Last Name Admitted to NICU Weight (g) Sex Living Outcome Pediatric Complications Fetus ID Race Codes Race Delivery Type [id number] M Full Term [id number] Vaginal Delivery Radu Calculation Initial Radu Date Initial Exam Date Initial Exam Provider Initial Ultrasound Date Last Menstrual Period Date Ultra Sound Weeks Gestation 0 Eighteen To Twenty Week Radu Update Ultra Sound Date Fundal Height At [place] Quickening Date Ultra Sound Latest Weeks Gestation Final Radu Confirmed By Final Radu Confirmed Date Final Radu Date Ultra Sound Latest Days Gestation 0 0 Menstrual History Last Menstrual Date Menses Monthly On Bcp Conception Prior Menses Frequency Hcg Plus Date Menarche Onset Age Delivery Information Delivery Date Delivery Type Labor Anesthesia Weeks Gestation Incision Type Labor Labor Length Hrs Delivered By Post Complications Tubal Sterilization Discharge Date Comments 6 Discharge Information Feeding Method Contraceptive Method Maternal HG B and HCT Levels
--- OUTSIDE RECORDS SUMMARY | 2024-11-20 02:55 | XMS_ITS | Encounter Summary ---
Author Organization [facility] Address [address] [place] [address] Phone Care Team Providers Care Paper Folder Name Role Phone Emeka Gonzalez MD Unavailable [phone] Liam Menjivar MD Primary Care Provider + Encounter Details Date Type Department Care Team (Late st Contact Info) Description 09/27/2024 Results Follow-Up [facility] [address] [place] [address] Maricruz Santoyo PA [address] [place] [address] Social History Tobacco Use Types Packs/Day Years Used Date Smoking Tobacco: Never Assessed Comments Unknown Sex and Gender Information Value Date Recorded Sex Assigned at Not on file 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
--- OUTSIDE RECORDS SUMMARY | 2024-11-20 02:55 | XMS_ITS | Referral Summary ---
Author Organization [address] Address [address] [place] [id number] Care Team Providers Care Administration Clerk Name Role Phone Emeka Gonzalez MD Unavailable [phone] Liam Menjivar MD Primary Care Provider + Encounters Date Type Department Care Team Description 10/25/2024 Telephone [facility] [address] [place] [phone] Farrah Cardenas 10/03/2024 Results Follow-Up [facility] [address] [place] [phone] Emeka Gonzalez MD 10/02/2024 Orders Only [facility] [address] [place] [phone] Maricruz Santoyo PA 09/27/2024 Results Follow-Up [facility] [address] [place] [phone] Maricruz Santoyo PA 09/25/2024 Orders Only [facility] [address] [place] [phone] Maricruz Santoyo PA from Last 3 Months Allergies Active Allergy Reactions Criticality Noted Date Comments Naproxen Unknown 01/05/2012 Medications rosuvastatin (CRESTOR) 10 mg tablet Take 10 mg by mouth daily Active clobetasoL (TEMOVATE) 0.05 % creamIndication s:Plaque Psoriasis Apply topically 2 (two) times a day 60 g 3 2 Active predniSONE (DELTASONE) 5 mg tablet Take 4 tablets by mouth with breakfast for 3 days and taper by 1 tablet every 3 days till off. 30 tablet 4 Active folic acid (FOLVITE) 1 mg tablet TAKE 1 TABLET DAILY 90 tablet 3 4 Active nabumetone (RELAFEN) 500 mg tablet TAKE 1 TABLET TWICE A DAY NEEDED FOR PAIN 180 tablet 1 4 Active allopurinoL (ZYLOPRIM) 100 mg tablet TAKE 1 TABLET TWICE A DAY 180 tablet 1 4 Active methotrexate 2.5 mg tabletIndicatio ns:Psoriatic arthritis (HCC) TAKE 5 TABLETS EVERY 7 DAYS 60 tablet 1 5 Active Otezla 30 mg tablet TAKE 1 TABLET TWICE A DAY 180 tablet 1 5 Active Active Problems Problem Noted Date Diagnosed Date Sicca 06/23/2023 Assessment & Plan (12/22/2023 3:11 PM CDT): Improved since last visit but still present. JAY w/LAILA lab was negative. To continue conservative treatment. Assessment & Plan (06/23/2023 4:49 PM ELECTRICAL ENGINEERING TECHNOLOGIST): Sicca symptoms worsening over the last 6 months. Uses wetting eyedrops and nighttime wetting gel. Does sleep with CPAP machine at night. Discussed use of XyliMelts and recommended bedside humidifier. Also offered to send in either pilocarpine or cevimeline and reviewed the potential side effects, including but not limited to flushing, dizziness, headaches, nausea, diarrhea, urinary frequency, weakness, rhinitis, palpitations and diaphoresis. She would prefer to try the xylimelts first and if no benefit then would consider pilocarpine 5 mg q.h.s.. Will check JAY with LAILA reflex today. Neck pain 06/25/2022 Assessment & Plan (06/25/2022 9:56 PM ELECTRICAL ENGINEERING TECHNOLOGIST): Reports right side of neck has been sore/tight and affecting her sleep. Ttp along R trapezius muscle edge with tension in the R levator scapula muscle. Discussed heat application, gentle massage and consideration of a short course of flexeril if conservative treatment does not help. Chronic pain of both shoulders 02/25/2021 Assessment & Plan (05/29/2021 2:19 PM ELECTRICAL ENGINEERING TECHNOLOGIST): Reportedly resolved after she stopped taking sulfasalazine. Assessment & Plan (02/25/2021 4:41 PM CDT): Upper arm musculature is sore and has difficulty with abduction but no pain/difficulty with flexion. Ttp of superior aspects of glenohumeral joints. Suspect pain is due to RTCs given the limited ROM, however will check CK due to muscle bed tenderness. Provided PT referral. Long-term use of high-risk medication 08/12/2020 Assessment & Plan (07/14/2024 2:53 PM ELECTRICAL ENGINEERING TECHNOLOGIST): Monitor routine labs while on immunosuppressive medication. To obtain labs today with repeat in 3 months. 07/2020: Neg Hep B/C Assessment & Plan (12/22/2023 3:10 PM CDT): Monitor routine labs while on immunosuppressive medication. To obtain labs. 07/2020: Neg Hep B/C Assessment & Plan (06/23/2023 4:51 PM ELECTRICAL ENGINEERING TECHNOLOGIST): Monitor routine labs while on immunosuppressive medication. 07/2020: Neg Hep B/C Assessment & Plan (12/24/2022 9:11 PM CDT): Monitor routine labs while on immunosuppressive medication. 07/2020: Neg Hep B/C Assessment & Plan (06/25/2022 10:11 PM ELECTRICAL ENGINEERING TECHNOLOGIST): Monitor routine labs while on immunosuppressive medication. 07/2020: Neg Hep B/C Assessment & Plan (12/24/2021 9:32 AM CDT): Monitor routine labs while on immunosuppressive medication. 07/2020: Neg Hep B/C Assessment & Plan (05/29/2021 8:01 AM ELECTRICAL ENGINEERING TECHNOLOGIST): Monitor routine labs while on immunosuppressive medication. 07/2020: Neg Hep B/C Assessment & Plan (02/25/2021 12:43 PM CDT): Monitor routine labs while on immunosuppressive medication. Reviewed labs from 12/2020 and stable - to check today. 07/2020: Neg Hep B/C Assessment & Plan (10/21/2020 8:50 AM CDT): Monitor routine labs. 07/2020: Neg Hep B/C Assessment & Plan (09/09/2020 9:38 PM ELECTRICAL ENGINEERING TECHNOLOGIST): Monitor routine labs. 07/2020: Neg Hep B/C Assessment & Plan (08/12/2020 4:07 PM ELECTRICAL ENGINEERING TECHNOLOGIST): Monitor routine labs. 07/2020: Neg Hep B/C Psoriatic arthritis 07/29/2020 Overview (01/28/2021): 07/2020 labs: AST 50, ALT 42, ESR 33, neg Hep B/C, JAY 1:320 homogenous by HEp2 only; no autoantibodies 12/2020 labs: Vitamin D 27.9 07/2020 xrays: -SI joints: Mild OA -Rt hand: Type II lunate, moderate OA of the lunate-hamate joint, severe OA of 1st CMC joint and mild OA of 1st-2nd MCP joints and most of the IP joints, moderate OA of 2/3/5th DIP joints -Lt hand: Moderate OA of the 1st CMC joint and 2nd DIP joint, mild OA of 2nd-3rd MCP joints and most IP joints -Rt foot: mild hallux valgus, mild OA of 1st MTP joint and talonavicular joint -Lt foot: mild OA of 1st MTP joint and talonavicular joint, periarticular calcification at talonavicular joint, enthesophytes at posterior and plantar aspects of calcaneal tuberosity -Lspine: Mildly decreased disc height at L1-L2, endplate osteophytes at most levels, severe facet joint OA in lower lumbar spine, 11 mm stone in left kidney, IUD present in expected position US right hand/wrist (08/12/20): Mild/moderate effusions and power doppler on examination which will have to be correlated clinically. Marked synovial thickening in the 2nd and 3rd PIP joints. Grade 1 effusion and grade 2 power doppler in the 2nd PIP joint. Grade 1 effusion and grade 1 power doppler in the wrist and radial/scaphoid joint. Grade 1 effusion in the ulnar styloid. An enlarged median nerve at 0.21 cm2 is identified. Assessment & Plan (07/14/2024 3:05 PM ELECTRICAL ENGINEERING TECHNOLOGIST): Remains on Otezla 30mg BID, 12.5mg PO MTX weekly and nabumetone once daily. Reports stability of her joints - no AM joint stiffness/swelling or much pain. Minimal amount of synovitis on exam. PsA appears well controlled. Continue 30mg Otezla BID, 12.5mg MTX split dosing weekly, 1mg FA daily and nabumetone daily. Otelza sample provided today as her shipment is delayed. Labs today. To return in 6 months, sooner if needed. Assessment & Plan (12/22/2023 3:14 PM CDT): Continued Otezla b.i.d. and methotrexate p.o. weekly. Joint pain has been worse over the past several weeks, mostly in the evening, with some wrist and ankle swelling. She has been taking nabumetone almost daily. Denies AM joint stiffness/swelling or much pain. Mild amount of synovitis on exam. Symptoms sound more mechanical/OA related and discussed the difference btwn OA and PsA. Will send in a prednisone taper to see how she feels after completing it - if symptoms return then may consider increasing MTX dose given synovitis on exam. In the meantime to continue 30mg Otezla BID, 12.5mg MTX split dosing weekly, 1mg FA daily and nabumetone daily. Discussed seeing an orthopedist for her R A-C joint pain. Due for labs (these were mailed out after the visit). To return in 6 months, sooner if medication doses are changed. Assessment & Plan (06/23/2023 4:50 PM ELECTRICAL ENGINEERING TECHNOLOGIST): Continued Otezla b.i.d. and methotrexate p.o. weekly. Did have COVID at the end of last month. Reports mild migratory joint pain which is manageable. Rarely takes nabumetone. Fullness of the left 1st on exam with crepitus of the bilateral shoulders on IR/ER. Appears well controlled at this time. Continue 30mg Otezla BID, 12.5mg MTX split dosing weekly, 1mg FA daily and nabumetone prn. May hold methotrexate if she becomes ill/febrile in the future and/or is placed on antibiotics. Provided orders for shoulder x-rays. Routine labs due in 4-6 weeks. Return in 6 months, sooner if needed. Assessment & Plan (12/24/2022 9:20 PM CDT): Patient has been feeling well since last visit with minimal joint complaints. Psoriasis reportedly still present without the scalp. Has not been taking nabumetone as frequently since Mother's day due to renal calculi pain/extraction procedure tomorrow. May try to hold off from taking NSAID. No synovitis on exam with minimal ttp of the lower midline lumbar spine. Appears well controlled at this time. Continue 30mg Otezla BID, 12.5mg MTX split dosing weekly, 1mg FA daily and nabumetone prn. Routine labs due in 4-6 weeks with repeat labs in 4 months. Return in 6 months, sooner if needed. Assessment & Plan (06/25/2022 10:10 PM ELECTRICAL ENGINEERING TECHNOLOGIST): CDAI: 2, low/remission On mtx, otezla and nabumetone. Joints are stable but has been more stressed with end of semester work. No synovitis or joint tenderness on exam. Continue MTX 12.5mg weekly split dosing, 1mg folic acid daily, 500mg nabumatone once daily and Otezla 30mg BID. In the future would like to decrease nabumetone and eventually have her off and only take prn to decrease CV/GI/renal risk with nursing home use. Routine labs including Vitamin D in 2 months ([facility]). Return in 6 months. Sooner if needed. Assessment & Plan (12/24/2021 10:03 PM CDT): CDAI: 6, low On mtx, otezla and nabumetone. Scalp psoriasis is worsening. Left knee is causing pain and feet/ankles continue to hurt/swell - worse with ambulation. Does not wear supportive shoes (sandals mostly) and has not seen podiatry. Minimal synovitis on exam with few tender peripheral joints. Suspect foot/ankle pain is likely mechanical and advised better fitting/supportive shoes and potential follow up with toll testboard worker - however will place order for a foot/ankle US for her to obtain in the fall when her pain is worse to evaluate for any inflammatory involvement. At this time will continue MTX 12.5mg weekly split dosing, 1mg folic acid daily, 500mg nabumatone once daily and Otezla 30mg BID. Did discuss potential switch to an IL-17 given the worsening psoriasis, which may be a better option especially if her foot pain is due to PsA - provided [employer] brochure for further information. In the future would like to decrease nabumetone and eventually have her off and only take prn to decrease CV/GI/renal risk with nursing home use. Routine labs today. Return in 6 months. Sooner if needed. Assessment & Plan (05/29/2021 4:14 PM ELECTRICAL ENGINEERING TECHNOLOGIST): CDAI: 5, low On xeljanz, mtx and nabumetone. Feels like shoulders got better after stopping the SSZ but psoriasis worsened with xeljanz. Rinvoq caused increase sebum production per patient. Minimal synovitis of the hands appreciated on exam without tenderness. Psoriatic plaques visible within scalp and bilateral EACs. Will stop xeljanz per reported worsening of her psoriatic plaques as well as SSZ as she believes it was contributing to her shoulder pain. Continue MTX 12.5mg weekly split dosing, 1mg folic acid daily and 500mg nabumatone BID. Will restart Otezla 30mg BID (she has 30d worth of medication at home) as she states she felt better on this. In the future would like to decrease nabumetone and eventually have her off and only take prn to decrease CV/GI/renal risk with nursing home use. Routine labs today with repeat labs in 3 months. Return in 6 months. Sooner if needed. Discussed with Dr. Gonzalez. Assessment & Plan (02/28/2021 4:15 PM CDT): CDAI: 20, moderate Minimal synovitis of the hands appreciated on exam with several tender peripheral joints. Psoriatic plaques visible within scalp and bilateral EACs. Discontinue Otezla and SSZ at this time as they do not appear to be offering much benefit. Discussed initiating treatment with Rinvoq 15mg once daily and reviewed the potential side effects including but not limited to URIs, nausea, elevated LFTs and anemias. She was amenable with the plan and a 1 month sample was provided. Encouraged her to try to get the Shingrex vaccine and provided a letter for insurance coverage. Continue MTX 12.5mg weekly split dosing, 1mg folic acid daily and nabumetone 500mg BID. In the future would like to decrease nabumetone and eventually have her off and only take prn to decrease CV/GI/renal risk with nursing home use. Routine labs today. Return in 2 months. Sooner if needed. Seen with Dr. Gonzalez. Discussed that she may call if her joint pain worsens for a prednisone taper pack as she starts rinvoq. *02/28/21: Rinvoq is not approved for PsA therefore will apply for xeljanz. Assessment & Plan (10/21/2020 4:17 PM CDT): CDAI: 11, moderate Had lithotripsy with ureteral stent placement. Back on nabumetone and notes joints feel good. Minimal synovitis of the hands appreciated on exam with some joint tenderness of the PIP and DIP joints of the hands. Continue MTX 12.5mg weekly split dosing, 1mg folic acid daily, SSZ 500mg BID, nabumetone 500mg BID and Otezla 30mg BID. In the near future would like to decrease nabumetone and eventually have her off and only take prn to decrease CV/GI/renal risk with nursing home use - may increase SSZ to counteract joint pain if necessary. Patient is concerned about this causing worsening joint pain and HAs. Discussed concern for CV/GI/renal risk and patient verbalized understanding. Had labs drawn last month at [facility] but no results are available. Will request results and if anything is abnormal she will have labs repeated. Return in 3 months. Sooner if needed. Assessment & Plan (09/09/2020 9:46 PM ELECTRICAL ENGINEERING TECHNOLOGIST): Recent serologies were positive for an AJY at 1:320 (homogenous) with elevated ESR (33), AST (50) and ALT (42). Radiographic imaging of the hands, feet and lumbar spine revealed varying degrees of osteoarthritis. A right hand/wrist US demonstrated mild-moderate effusions and power doppler on examination with marked synovial thickening of 2 joints. Is scheduled for lithotripsy with possible ureter stent on for nephrolithiasis treatment - has been holding nabumetone for several days. Right elbow has begun to ache more since last week and neck pain has worsened off nabumetone. Minimal synovitis of the hands appreciated on exam with some scattered peripheral joint tenderness, including right lateral epicondyle. Continue MTX 12.5mg weekly split dosing, 1mg folic acid daily, SSZ 500mg BID, nabumetone 500mg BID (once lithotripsy/stenting procedure has been performed), and Otezla 30mg BID. Start to taper off prednisone - take 2mg once daily x 14d then 1mg once daily x 14d. Will not increase MTX at this time due to elevated LFTs - these were wnl in November but elevated last month. Continue to monitor LFTs and symptoms once off prednisone. Return in 6 weeks. Sooner if needed. Seen with Dr. Gonzalez. Assessment & Plan (08/12/2020 8:29 PM ELECTRICAL ENGINEERING TECHNOLOGIST): Currently on 30mg oteza BID, 12.5mg MTX weekly split over 24hrs, nabumetone and 2.5mg prednisone daily. Continues to experience joint discomfort and swelling, as well as a few minutes of AM stiffness. Psoriasis has improved but still present in bilateral EACs. Recent serologies were positive for an JAY at 1:320 (homogenous) with elevated ESR (33), AST (50) and ALT (42). Radiographic imaging of the hands, feet and lumbar spine revealed varying degrees of osteoarthritis. A right hand/wrist US demonstrated mild-moderate effusions and power doppler on examination with marked synovial thickening of 2 joints. Synovitis still present on exam with scattered tender peripheral joints and ttp of lower midline lumbar spine. Sjogren's does not appear to be present at this time based on negative serologies, despite sicca symptoms. Continue MTX 12.5mg weekly split dosing, 1mg folic acid daily, nabumetone 500mg BID, 2.5mg prednisone daily and Otezla 30mg BID. Provided Otezla sample as she hasn't received any yet through [facility] despite recent renewal. Will not increase MTX at this time due to elevated LFTs - these were wnl in November. Discussed the addition of 500mg SSZ BID for additional control of her joint pain and reviewed the potential side effects of the medication, including but not limited to rash, blood count abnormalities, and upset stomach. PT was amenable to the plan and a handout was provided for additional review. Will send in SSZ script. Continue to monitor LFTs, will eventually reduce/stop the prednisone. Check Vit D level at next visit. Return in 4 weeks. Sooner if needed. Seen with Dr. Gonzalez. Assessment & Plan (07/29/2020 8:13 PM ELECTRICAL ENGINEERING TECHNOLOGIST): Ms. Sanders is a 59yo female with PMH of GERD, HTN, hx renal calculi, T2DM monitoring only, LANNY on CPAP and OA who presents to establish care of her PsA. Currently on 30mg oteza BID, 12.5mg MTX weekly split over 24hrs, meloxicam, nabumetone and 2.5mg prednisone daily. Continues to experience joint discomfort and swelling, as well as a few minutes of AM stiffness. Lost effect to Enbrel in the past and Humira had no effect. Psoriasis has improved but still present in bilateral EACs and right lateral distal leg. Reports symptoms of hair thinning and dry eyes. FH significant for brother (now ) with psoriasis. Moderate synovitis of the hands with scattered tenderness. Bilateral SI joints with ttp. Will perform appropriate radiographs, serologies, and right hand US to assess the severity of her PsA and check for Sjogren's given the new onset sicca symptoms and joint pain. Return in [address] Gonzalez. Social History Tobacco Use Types Packs/Day Years Used Date Smoking Tobacco: Never Assessed Comments Unknown Sex and Gender Information Value Date Recorded Sex Assigned at Not on file Legal Sex Female 5:36 PM ELECTRICAL ENGINEERING TECHNOLOGIST Gender Identity Female 10/25/2020 3:11 PM CDT Sexual Orientation Straight 10/25/2020 3: 11 PM CDT Last Filed Vital Signs Vital Sign Reading Time Taken Comments Blood Pressure 122/64 07/14/2024 12:57 PM ELECTRICAL ENGINEERING TECHNOLOGIST Pulse 68 07/14/2024 12:57 PM ELECTRICAL ENGINEERING TECHNOLOGIST Temperature 36.1 C (97 F) 05/29/2021 11:07 AM ELECTRICAL ENGINEERING TECHNOLOGIST Respiratory Rate - - Oxygen Saturation 96% 07/14/2024 12: 57 PM ELECTRICAL ENGINEERING TECHNOLOGIST Inhaled Oxygen Concentration - - Weight 99.7 kg (219 lb 12.8 oz) 024 12:57 PM ELECTRICAL ENGINEERING TECHNOLOGIST Height 154.9 cm (5' 1 ) 07/14/2024 12:5 7 PM ELECTRICAL ENGINEERING TECHNOLOGIST Body Mass Index 41.53 07/14/2024 12:57 PM ELECTRICAL ENGINEERING TECHNOLOGIST Plan of Treatment Not on file Procedures Procedure Name Priority Date/Time Associated Diagnosis Comments SCAN - LABS 10/02/2024 1:48 PM CDT SPECIMEN STATUS REPORT Routine 4:19 PM CDT COMPREHENSIVE METABOLIC PANEL Routine 09/25/2024 4:19 PM CDT CBC WITH AUTO DIFFERENTIAL Routine 09/25/2024 4:19 PM CDT HEPATITIS C ANTIBODY Routine 07/29/2020 3:44 PM ELECTRICAL ENGINEERING TECHNOLOGIST from Last 3 Months or Most Recently Relevant to Health Maintenance Results * SCAN - LABS (10/02/2024 1:48 PM CDT) [facility]O Final Result * Specimen Status Report (09/25/2024 4:19 PM CDT) Specimen Status Report Comment [facility] - 01 Comment: Genevieve Abbretristin CMP14 Default Genevieve Richard CMP14 Default A hand-written panel/profile was received from your office. In accordance with the [facility] Ambiguous Test Code Policy dated January 2003, we have completed your order by using the closest currently or formerly recognized AMA panel. We have assigned Comprehensive Metabolic Panel (14), Test Code #876961 to this request. If this is not the testing you wished to receive on this specimen, please contact the [facility] Client Inquiry/Technical Services Department to clarify the test order. We appreciate your business. 09/25/2024 4:19 PM CDT 09/25/2024 Narrative [facility] - 09/26/2024 7:09 AM CDT Performed at: 01 - [address] [id number] Pressure Dispatcher: Rashid Hernandez PhD, Phone: [phone] Mar[facility] TORO LAB BLOOD ORDER PADMINI Final Result [facility] - * CBC with auto differential (09/25/2024 4:19 PM CDT) WBC 4.9 3.4 - 10.8 x10E3/uL [facility] - 01 RBC 3.82 3.77 - 5.28 x10E6/uL [facility] - 01 Hgb 11.8 11.1 - 15.9 g/dL [facility] - 01 Hct 37.0 34.0 - 46.6 % [facility] - 01 MCV 97 79 - 97 fL [facility] - 01 MCH 30.9 26.6 - 33.0 pg [facility] - 01 MCHC 31.9 31.5 - 35.7 g/dL [facility] - 01 Rdw 14.8 11.7 - 15.4 % [facility] - 01 Platelets 284 150 - 450 x10E3/uL [facility] - 01 Neutrophils pct 57 Not Estab. % [facility] - 01 Lymphs pct 34 Not Estab. % [facility] - 01 Monocytes pct 3 Not Estab. % [facility] - 01 Eosinophils pct 5 Not Estab. % [facility] - 01 Basophil pct 1 Not Estab. % [facility] - 01 Neutrophil abs 2.8 1.4 - 7.0 x10E3/uL [facility] - 01 Lymphs (Absolute) 1.7 0.7 - 3.1 x10E3/uL [facility] - 01 Monocyte abs 0.1 0.1 - 0.9 x10E3/uL [facility] - 01 Eosinophils, abs 0.2 0.0 - 0.4 x10E3/uL [facility] - 01 Basophils, abs 0.1 0.0 - 0.2 x10E3/uL [facility] - 01 Immature Granulocytes 0 Not Estab. % [facility] - 01 Immature Grans (Abs) 0.0 0.0 - 0.1 x10E3/uL [facility] - 01 09/25/2024 4:19 PM CDT 09/25/2024 Narrative [facility] - 09/26/2024 8:11 AM CDT Performed at: - [facility] [id number] Pressure Dispatcher: Rashid Hernandez PhD, Phone: [phone] Specimen Comment: A courtesy copy of this report has been sent to [facility] Specimen Comment: Family Maricruz TORO LAB BLOOD ORDER PADMINI Final Result [facility] - 01 * (ABNORMAL) Comprehensive metabolic panel (09/25/2024 4:19 PM CDT) Glucose 124(H) 70 - 99 mg/dL [facility] - 01 BUN 16 8 - 27 mg/dL [facility] - 01 Creatinine, Serum 0.89 0.57 - 1.00 mg/dL [facility] - 01 eGFR 73 >59 mL/min/1.7 3 [facility] - 01 BUN/creat ratio 18 12 - 28 [facility] - 01 Sodium 144 134 - 144 mmol/L [facility] - 01 Potassium, sr 3.7 3.5 - 5.2 mmol/L [facility] - 01 Chloride 107(H) 96 - 106 mmol/L [facility] - 01 CO2 23 20 - 29 mmol/L [facility] - 01 Calcium 9.3 8.7 - 10.3 mg/dL [facility] - 01 Protein, sr 6.9 6.0 - 8.5 g/dL [facility] - 01 Albumin 4.2 3.9 - 4.9 g/dL [facility] - 01 Globulin, Total 2.7 1.5 - 4.5 g/dL [facility] - 01 Bilirubin, Total 0.3 0.0 - 1.2 mg/dL [facility] - 01 Alk phos 69 44 - 121 IU/L [facility] - 01 AST 47(H) 0 - 40 IU/L [facility] - 01 ALT 27 0 - 32 IU/L [facility] - 01 09/25/2024 4:19 PM CDT 09/25/2024 Narrative [facility] - 09/26/2024 7:09 AM CDT Performed at: [facility] [id number] Pressure Dispatcher: Rashid Hernandez PhD, Phone: [phone] Mar[facility]O LAB BLOOD ORDER PADMINI Final Result Performing Organization Address [facility] Co de Phone Number [facility] - * Hepatitis C antibody (07/29/2020 3:44 PM ELECTRICAL ENGINEERING TECHNOLOGIST) Hep C Ab NON-REACTI VE NON-REACT VELIA [facility] SIGNAL TO CUT-OFF 0.01 <1.00 [facility] Comment: HCV antibody was non-reactive. There is no laboratory evidence of HCV infection. In most cases, no further action is required. However, if recent HCV exposure is suspected, a test for HCV RNA (test code 61587) is suggested. For additional information please refer to http://education.[employer]/faq/PYX50v1 (This link is being provided for informational/ educational purposes only.) 07/29/2020 3:44 PM ELECTRICAL ENGINEERING TECHNOLOGIST 07/29/2020 3:44 PM ELECTRICAL ENGINEERING TECHNOLOGIST [facility] LAB MICROBIOLOG Y - GENERAL ORDERABLES Final Result Performing Organization Address City/[facility]/ZIP Co de Phone Number [facility] [facility] [address] [address] [id number] from Last 3 Months or Most Recently Relevant to Health Maintenance Insurance [facility] PL[facility] PL[facility] Care Teams Administration Clerk Relationship Specialty Start Date End Date Liam Menjivar MD [address] [id number] PCP - General Internal Medicine 12/24/22 Emeka Gonzalez MD [facility] [place] [address] Consulting Physician Rheumatology 07/09/20
--- OUTSIDE RECORDS SUMMARY | 2024-11-20 02:55 | XMS_ITS | Clinical Summary ---
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 Assessment & Plan (06/23/2023 4:49 PM CHILD ATTENDANT): Sicca symptoms worsening over the last 6 [...] 06/25/2022 Assessment & Plan (06/25/2022 9:56 PM CHILD ATTENDANT): Reports right side of neck has been sore/tight and affecting her sleep. Ttp along R trapezius muscle edge with tension in the R levator scapula muscle. Discussed heat application, gentle massage and consideration of a short course of flexeril if conservative treatment does not help. Chronic pain of both shoulders 02/25/2021 Assessment & Plan (05/29/2021 2:19 PM CHILD ATTENDANT): Reportedly resolved after she stopped taking sulfasalazine. [...] 08/12/2020 Assessment & Plan (07/14/2024 2:53 PM CHILD ATTENDANT): Monitor routine labs while on immunosuppressive medication. To obtain labs today with repeat in 3 months. 07/2020: Neg Hep B/C Assessment & Plan (12/22/2023 3:10 PM CDT): Monitor routine labs while on immunosuppressive medication. To obtain labs. 07/2020: Neg Hep B/C Assessment & Plan (06/23/2023 4:51 PM CHILD ATTENDANT): Monitor routine labs while on immunosuppressive medication. 07/2020: Neg Hep B/C Assessment & Plan (12/24/2022 9:11 PM CDT): Monitor routine labs while on immunosuppressive medication. 07/2020: Neg Hep B/C Assessment & Plan (06/25/2022 10:11 PM CHILD ATTENDANT): Monitor routine labs while on immunosuppressive medication. 07/2020: Neg Hep B/C Assessment & Plan (12/24/2021 9:32 AM CDT): Monitor routine labs while on immunosuppressive medication. 07/2020: Neg Hep B/C Assessment & Plan (05/29/2021 8:01 AM CHILD ATTENDANT): Monitor routine labs while on immunosuppressive medication. 07/2020: Neg Hep B/C Assessment & Plan (02/25/2021 12:43 PM CDT): Monitor routine labs while on immunosuppressive medication. Reviewed labs from 12/2020 and stable - to check today. 07/2020: Neg Hep B/C Assessment & Plan (10/21/2020 8:50 AM CDT): Monitor routine labs. 07/2020: Neg Hep B/C Assessment & Plan (09/09/2020 9:38 PM CHILD ATTENDANT): Monitor routine labs. 07/2020: Neg Hep B/C Assessment & Plan (08/12/2020 4:07 PM CHILD ATTENDANT): Monitor routine labs. 07/2020: Neg Hep B/C [...] identified. Assessment & Plan (07/14/2024 3:05 PM CHILD ATTENDANT): Remains on Otezla 30mg BID, 12.5mg PO [...] changed. Assessment & Plan (06/23/2023 4:50 PM CHILD ATTENDANT): Continued Otezla b.i.d. and methotrexate p.o. weekly. [...] needed. Assessment & Plan (06/25/2022 10:10 PM CHILD ATTENDANT): CDAI: 2, low/remission On mtx, otezla and [...] take prn to decrease CV/GI/renal risk with halfway use. 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 Routine labs today. Return in 6 months. Sooner if needed. Assessment & Plan (05/29/2021 4:14 PM CHILD ATTENDANT): CDAI: 5, low On xeljanz, mtx and [...] take prn to decrease CV/GI/renal risk with halfway use. Routine labs today with repeat labs [...] take prn to decrease CV/GI/renal risk with halfway use. Routine labs today. Return in 2 months. Sooner if needed. Seen with Dr. Gnozalez. Discussed that she may call if her [...] take prn to decrease CV/GI/renal risk with halfway use - may increase SSZ to counteract joint pain if necessary. Patient is concerned about this causing worsening joint pain and HAs. Discussed concern for CV/GI/renal risk and patient verbalized understanding. Had labs drawn last month at [facility] but no results are available. Will request results and if anything is abnormal she will have labs repeated. Return in 3 months. Sooner if needed. Assessment & Plan (09/09/2020 9:46 PM CHILD ATTENDANT): Recent serologies were positive for an JAY [...] Gonzalez. Assessment & Plan (08/12/2020 8:29 PM CHILD ATTENDANT): Currently on 30mg oteza BID, 12.5mg MTX [...] Gonzalez. Assessment & Plan (07/29/2020 8:13 PM CHILD ATTENDANT): Ms. Sanders is a 59yo female with [...] in [address] Gonzalez. Encounters Date Type Department Care Team Description 10/25/2024 Telephone [facility] [address] [place] [phone] Farrah Cardenas 10/03/2024 Results Follow-Up [facility] [address] [place] [phone] Emeka Gonzalez MD 10/02/2024 Orders Only [address] [phone] Maricruz Santoyo PA 09/27/2024 Results Follow-Up [facility] [address] [place] [phone] Maricruz Santoyo PA 09/25/2024 Orders Only [facility] [address] [place] [phone] Maricruz Santoyo PA from Last 3 Months Social History Tobacco Use Types Packs/Day Years Used Date Smoking Tobacco: Never Assessed Comments Unknown Sex and Gender Information Value Date Recorded Sex Assigned at Not on file Legal Sex Female 5:36 PM CHILD ATTENDANT Gender Identity Female 10/25/2020 3:11 PM CDT Sexual Orientation Straight 10/25/2020 3: 11 PM CDT Obstetrics History Last Filed Vital Signs Vital Sign Reading Time Taken Comments Blood Pressure 122/64 07/14/2024 12:57 PM CHILD ATTENDANT Pulse 68 07/14/2024 12:57 PM CHILD ATTENDANT Temperature 36.1 C (97 F) 05/29/2021 11:07 AM CHILD ATTENDANT Respiratory Rate - - Oxygen Saturation 96% 07/14/2024 12: 57 PM CHILD ATTENDANT Inhaled Oxygen Concentration - - Weight 99.7 kg (219 lb 12.8 oz) 024 12:57 PM CHILD ATTENDANT Height 154.9 cm (5' 1 ) 07/14/2024 12:5 7 PM CHILD ATTENDANT Body Mass Index 41.53 07/14/2024 12:57 PM CHILD ATTENDANT Plan of Treatment Health Maintenance Due Date Last Done Comments Breast Cancer Screening-Mammogram 1962 Cervical Cancer Screening 1962 Colon Cancer Screening-Colonoscopy 1962 Depression Screening 1962 Hepatitis B Screening 1980 Regular Well Visit/Exam 18-64 1980 Pneumococcal vaccine <65 (1 of 2 - PCV) 1981 Zoster Vaccine (1 of 2) 1981 Covid-19 Vaccine (5 - 2023-2 5 season) 2024 03/20/2021, 12/18/2020, 09/28/2020, Additional history exists Influenza Vaccine (Season Ended) 2025 06/15/2022, 03/20/2021, 04/06/2020, Additional history exists DTaP/Tdap/Td Vaccine (2 - Td or Tdap) 11/13/2031 11/12/2021, 07/29/2010 Hepatitis C Screening Completed 07/29/2020 Procedures Procedure Name Priority Date/Time Associated Diagnosis Comments SCAN - LABS 10/02/2024 1:48 PM CDT SPECIMEN STATUS REPORT Routine 4:19 PM CDT COMPREHENSIVE METABOLIC PANEL Routine 09/25/2024 4:19 PM CDT CBC WITH AUTO DIFFERENTIAL Routine 09/25/2024 4:19 PM CDT HEPATITIS C ANTIBODY Routine 07/29/2020 3:44 PM CHILD ATTENDANT from Last 3 Months or Most Recently Relevant to Health Maintenance Results * SCAN - LABS (10/02/2024 1:48 PM CDT) [facility] Final Result * Specimen Status Report (09/25/2024 4:19 PM CDT) Specimen Status Report Comment [facility] - 01 Comment: Genevieve Abbrev CMP14 Default Genevieve Abbrev CMP14 Default A hand-written panel/profile was received from your office. In accordance with the [facility] Ambiguous Test Code Policy dated January 2003, we have completed your order by using the closest currently or formerly recognized AMA panel. We have assigned Comprehensive Metabolic Panel (14), Test Code #170801 to this request. If this is not the testing you wished to receive on this specimen, please contact the [facility] Client Inquiry/Technical Services Department to clarify the test order. We appreciate your business. 09/25/2024 4:19 PM CDT 09/25/2024 Narrative [facility] - 09/26/2024 7:09 AM CDT Performed at: [address] [place] [id number] Automotive Engineer: Rashid Hernandez PhD, Phone: [phone] [facility] LAB BLOOD ORDER PADMINI Final Result [facility] - 01 * CBC with auto differential (09/25/2024 4:19 [...] - 09/26/2024 8:11 AM CDT Performed at: [address] [place] [id number] Automotive Engineer: Rashid Hernandez PhD, Phone: [phone] Specimen Comment: A courtesy copy of this report has been sent to [facility] Specimen Comment: Family us [facility]O LAB BLOOD ORDER PADMINI Final Result [facility] - * (ABNORMAL) Comprehensive metabolic panel (09/25/2024 4:19 PM CDT) [facility] Glucose 124(H) 70 - 99 mg/dL [facility] [...] 01 09/25/2024 4:19 PM CDT 09/25/2024 Narrative [facility] - 09/26/2024 7:09 AM CDT Performed at: [address] [place] [id number] Automotive Engineer: Rashid Hernandez PhD, Phone: [phone] [facility] LAB BLOOD ORDER PADMINI Final Result [facility] - 01 * Hepatitis C antibody (07/29/2020 3:44 PM CHILD ATTENDANT) Pathologist [facility] Hep C Ab NON-REACTI VE NON-REACT VELIA [facility] SIGNAL TO CUT-OFF 0.01 <1.00 [facility] Comment: HCV antibody was non-reactive. There is no laboratory evidence of HCV infection. In most cases, no further action is required. However, if recent HCV exposure is suspected, a test for HCV RNA (test code 11882) is suggested. 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
--- OUTSIDE RECORDS SUMMARY | 2024-11-20 02:55 | XMS_ITS | Data Portability ---
Author Organization [facility] [place] [facility] Address [address] [place] [address] Care Team Providers Care Cuff Cutter Name Role Phone TRACI SMITH Non Destructive Testing Supervisor [phone] PRISCILLA TROTTER Urologist Assessment No assessment recorded. Plan of Treatment Reminders Order Date Submit Date Provider Last Modified By Organization Details Last Modified Time Details Appointments NEW PATIENT 30 2024 01:30P MUNA LEDEZMA Not available Not available Not available Lab HbA1c (hemoglob in A1c), blood 2024 025 [facility] In-Office Order, Internal Use Only DO Not Attach Compendium DO Not Attach Compendium, Do Not Delete/merge, [id number] 08/21/2024 17:14:29 lipid panel, serum 2024 025 [facility], [address], [place], [address], 09/26/2024 08:24:23 urinalysi s, dipstick 2023 024 [email or web address] In-Office Order, Internal Use Only DO Not Attach Compendium DO Not Attach Compendium, Do Not Delete/merge, [id number] 01/06/2024 17:15:54 culture, urine 2023 024 [facility], [address], [address], [place], [address], 01/08/2024 03:01:25 microalbu min, urine 2023 024 EMILEE In-Office Order, Internal Use Only DO Not Attach Compendium DO Not Attach Compendium, Do Not Delete/merge, [id number] 01/07/2024 09:41:03 HbA1c (hemoglob in A1c), blood 2023 024 beryl 39 In-Office Order, Internal Use Only DO Not Attach Compendium DO Not Attach Compendium, Do Not Delete/merge, [id number] 01/06/2024 17:15:55 HbA1c (hemoglob in A1c), blood 2022 023 EMILEE In-Office Order, Internal Use Only DO Not Attach Compendium DO Not Attach Compendium, Do Not Delete/merge, [id number] 12/22/2022 12:11:07 HbA1c (hemoglob in A1c), blood 2021 022 [facility]E [facility], [address], [place], [address], 12/09/2021 04:08:09 BMP, serum or plasma 2021 022 [facility]E [facility], [address], [place], [address], 12/09/2021 04:08:08 lipid panel, serum 2021 022 EMILEE [facility], [address], [place], [address], 12/09/2021 04:08:08 Referral gastroent erologist referral - patient is having dysphagia . Please eval and treat. 2024 025 shaw France MD, [address], [address], [place], [address], 09/08/2024 14:12:32 gastroent erologist referral - Please contact patient for appt, thanks! 2023 024 emily Gill MD, [address], [address], [place], [address], 04/14/2024 12:34:17 Procedures None recorded. Surgeries None recorded. Imaging MAMMO, screening , digital, bilateral , w/ CAD 2022 023 [facility], [address] [address], [place], [address], 04/28/2023 08:06:10 Medication Orders atenolol 50 mg tablet 2024 025 [facility], [address] [place] [address], [address], 08/21/2024 17:14:28 lisinopri l 10 mg tablet 2024 025 [facility], [address] [place] [address], [address], 08/21/2024 17:14:28 rosuvasta tin 10 mg tablet 2024 025 [facility], [address] [place] [address], [place], [address], 08/21/2024 17:14:28 phenazopy ridine 200 mg tablet 2023 024 [email or web address] 39 [id number], [address] [place], [address], 01/29/2024 07:39:48 nitrofura ntoin monohydra te/macroc rystals 100 mg capsule 2023 024 [email or web address] 39 [id number], [address] [place], [address], 01/29/2024 07:39:40 Patient TargetsNo targets recorded. Patient Instructions Encounter Date Encounter Id Patient Instructions Last Modified By Organization Details Last Modified Time 10/14/2020 [id number] body mass index: care instructions Not available 10/14/2020 17:46:15 learning about healthy weight Not available 10/14/2020 17:46:14 type 2 diabetes: care instructions Not available 10/14/2020 17:46:14 high blood pressure: care instructions Not available 10/14/2020 17:46:14 11/12/2021 [id number] body mass index: care instructions Not available 11/12/2021 15:47:46 learning about healthy weight Not available 11/12/2021 15:47:47 tetanus and diphtheria booster: care instructions Not available 11/12/2021 15:51:05 type 2 diabetes: care instructions Not available 11/12/2021 15:47:47 high blood pressure: care instructions Not available 11/12/2021 15:47:47 learning about high blood pressure Not available 11/12/2021 15:47:47 12/21/2022 [id number] body mass index: care instructions [email or web address] Not available 12/21/2022 21:34:36 learning about healthy weight [email or web address] Not available 12/21/2022 21:34:36 type 2 diabetes: care instructions [email or web address] Not available 12/21/2022 15:24:36 Bren, - Thank you for your visit - Continue your current medications - Have your imaging studies done at your earliest convenience - Your results will be available on the portal with any recommendations, or we will call you with them - Consider use of Excedrin acutely when you develop your premigraine aura - Call if symptoms persist or worsen - Return to clinic in 6 months, AND as needed. - Call with any concerns Immunization recommendations: Preventive immunization against tetanus, diphtheria and pertussis is recommended every 10 years, or after 7 years if sustaining a tetanus-prone wound. Preventive immunization against shingles (herpes zoster) is recommended to reduce risk of occurrence, possible chronic pain, and transmission. Currently this is a two shot regimen. All individuals age 65 and up are encouraged to obtain vaccination against Pneumococcal pneumonia. Currently, this is a single immunization, [id number], if you have never previously been immunized. Yearly influenza immunization is recommended, and typically available beginning in mid-March. I highly encourage all who are able to complete an initial immunization series against COVID19, along with boosters as indicated by age or medical history. Your goal hemoglobin A1c is under 7.0 to prevent long-term diabetes complications (eye , kidney, and nerve damage). Your goal sugars are in the 90-130 range Exercise recommendations: It is recommended that you do daily aerobic (walking, bicycling, swimming) and resistance exercises (light weight lifting, resistance band stretching) for at least 30 minutes, most days of the week. If you cannot walk, chair exercises for 10-15 minutes a day would help tremendously. As little as 15-20 minutes exercise, in one or two sessions a day, is still very helpful to manage/improve your weight and diabetes control. Diet recommendations: Eat small portion meals, trying not to consume more than 1800 calories a day. Try to eat not more than 2 servings of carbs (starches) with your meals. Avoid soft drinks, including regular sodas, fruit juices, and sweetened tea. Drink water instead. Eat plenty of green and leafy vegetables, including salads. Medications: Take your medications regularly. Setting phone alarms can help. Keep your medication on the kitchen dinner table, by the bedside table or by the sink where they are visible to you. [email or web address] Not available 12/21/2022 15:26:11 01/06/2024 [id number] high cholesterol : care instructions [email or web address] Not available 01/06/2024 17:15:51 body mass index: care instructions [email or web address] Not available 01/06/2024 17:15:52 learning about healthy weight [email or web address] Not available 01/06/2024 17:15:52 type 2 diabetes: care instructions [email or web address] Not available 01/06/2024 17:15:52 high blood pressure: care instructions [email or web address] Not available 01/06/2024 17:15:51 learning about high blood pressure [email or web address] Not available 01/06/2024 17:15:51 Bern, - Thank you for your visit - Continue your current medications - Use medications as directed. - Call if urinary symptoms persist beyond 48 hours - We will call if culture indicates a change in antibiotic - I have placed referral(s) below. You should receive a phone call in the next 2 weeks to schedule this(these) appointment(s). - Return to clinic in 1 year, AND as needed. - Call with any concerns Immunization recommendations: - Preventive immunization against shingles (herpes zoster) is recommended to reduce risk of occurrence, possible chronic pain, and transmission. Currently this is a two shot regimen - Yearly influenza immunization is recommended, and typically available beginning in mid-March - I highly encourage all who are able to complete an initial immunization series against COVID19, along with boosters as indicated by age or medical history - Consider obtaining an RSV immunization. For more information: https://www.cdc.go v/vaccines/vpd/rsv /index.html Exercise recommendations: - It is recommended that you do daily aerobic (walking, bicycling, swimming) and resistance exercises (light weight lifting, resistance band stretching) for at least 30 minutes, most days of the week. - If you cannot walk, chair exercises for 10-15 minutes a day would help tremendously. - As little as 15-20 minutes exercise, in one or two sessions a day, is still very helpful to manage/improve your weight and overall health Diet recommendations: - Eat small portion meals, trying not to consume more than 1800 calories a day. - Try to eat not more than 2 servings of carbs (starches) with your meals. - Avoid soft drinks, including regular sodas, fruit juices, and sweetened tea. Drink water instead. - Eat plenty of green and leafy vegetables, including salads. [email or web address] Not available 01/06/2024 17:20:08 08/21/2024 [id number] A healthy lifestyle: care instructions [email or web address] Not available 08/21/2024 17:14:28 Reason for Referral Director Systems Referral for Screening for malignant neoplasm of colon screening colonoscopy Please contact patient for appt, thanks! Referring Physician: Liam Menjivar, Family Medicine, Encounter Date: 01/06/2024 Director Systems Referral for Gastroesophageal reflux disease without esophagitis patient is having dysphagia. Please eval and treat. Referring Physician: Geovanna Bird, [facility], Encounter Date: 08/21/2024 Results Created Date Observation Date Name Description Value Unit Range Abnormal Flag Note LastModifiedBy Organization Detail LastModifiedTime 01/08/20 24 01/08/2024 CULTU RE, URINE , ROUTI NE culture, urine, routine SEE NOTE CULTU RE, URINE , ROUTI NE Micro Numbe r: [id number] Test Statu s: Final Speci men Sourc e: Urine Speci men Quali ty: Adequ ate Resul t: Mixed genit al jessica isola francisco. These super ficia l bacte fabiola are not indic ative of a urina ry tract infec tion. No furth er organ ism ident ifica tion is warra nted on this speci men. If clini edith indic ated, recol lect clean -catc h, mid-s tream urine and trans tosha immed iatel y to Urine Cultu re Trans port Tube. NO COLLE CTION DATE RECEI SAMEER. WE HAVE USED THE DATE THE SPECI MEN WAS RECEI SAMEER BY THIS LABOR ATORY THE COLLE CTION DATE. IF THIS IS INCOR RECT, PLEAS E CONTA CT CLIEN T SERVI ADRIAN. PHONE NUMBE R: [phone] Not Available [facility] [address], [place], [address], 01/08/2024 03:01:25 05/15/2005/16/2021 BASIC METAB OLIC PANEL (8) glucose 97 mg/dL 65-99 Not Available [facility] ([facility]) [address] [place], [address], 05/16/2021 07:11:32 05/15/2005/16/2021 BASIC METAB OLIC PANEL (8) BUN 17 mg/dL 6-24 Not Available [facility] ([facility]) [address] [place], [address], 05/16/2021 07:11:32 05/15/20 21 05/16/2021 BASIC METAB OLIC PANEL (8) creatinine 1.01 mg/dL 0.57-1 .00 above high normal Not Available [facility] ([facility]) [address] [facility], [place], [address], 05/16/2021 07:11:32 05/15/20 21 05/16/2021 BASIC METAB OLIC PANEL (8) eGFR if nonafricn AM 62 mL/mi n/1.7 3 >59 Not Available [facility] ([facility]) [address] [facility], [place], [address], 05/16/2021 07:11:32 05/15/20 21 05/16/2021 BASIC METAB OLIC PANEL (8) eGFR if africn AM 71 mL/mi n/1.7 3 >59 In accor dance with recom menda tions from the NKF-A SN Task force , [facility] is in the proce ss of updat ing its eGFR calcu latio n to the 2020 CKD-E PI creat inine equat ion that estim ates kidne y funct ion witho ut a race varia ble. Not Available [facility] ([facility]) [address] [facility], [place], [address], 05/16/2021 07:11:32 05/15/20 21 05/16/2021 BASIC METAB OLIC PANEL (8) BUN/creatini ne ratio 17 9-23 Not Available [facility] ([facility]) [address] [facility], [place], [address], 05/16/2021 07:11:32 05/15/20 21 05/16/2021 BASIC METAB OLIC PANEL (8) sodium 143 mmol/ L 134-14 4 Not Available [facility] ([facility]) [address] [facility], [place], [address], 05/16/2021 07:11:32 05/15/20 21 05/16/2021 BASIC METAB OLIC PANEL (8) potassium 4.7 mmol/ L 3.5-5. 2 Not Available [facility] ([facility]) [address] [facility] [place], [address], 05/16/2021 07:11:32 05/15/2005/16/2021 BASIC METAB OLIC PANEL (8) chloride 105 mmol/ L 96-106 Not Available [facility] ([facility]) [address] [facility] [place], [address], 05/16/2021 07:11:32 05/15/2005/16/2021 BASIC METAB OLIC PANEL (8) carbon dioxide, total 24 mmol/ L Not Available [facility] ([facility]) [address] [facility] [place], [address], 05/16/2021 07:11:32 05/15/2005/16/2021 BASIC METAB OLIC PANEL (8) calcium 9.7 mg/dL 8.7-10 .2 Not Available [facility] ([facility]) [address] [facility] [place], [address], 05/16/2021 07:11:32 12/09/1912/09/2021 BASIC METAB OLIC PANEL (8) glucose 109 mg/dL 65-99 above high normal Not Available [facility] ([facility]) [address] [facility] [place], [address], 12/09/2021 04:08:08 12/09/19 22 12/09/2021 BASIC METAB OLIC PANEL (8) BUN 15 mg/dL 6-24 Not Available [facility] ([facility]) [address] [facility] [place], [address], 12/09/2021 04:08:08 12/09/19 22 12/09/2021 BASIC METAB OLIC PANEL (8) creatinine 0.97 mg/dL 0.57-1 .00 Not Available [facility] ([facility]) [address] [facility] [place], [address], 12/09/2021 04:08:08 12/09/19 22 12/09/2021 BASIC METAB OLIC PANEL (8) eGFR 67 mL/mi n/1.7 3 >59 Not Available [facility] ([facility]) [address] [facility], [place], [address], 12/09/2021 04:08:08 12/09/19 22 12/09/2021 BASIC METAB OLIC PANEL (8) BUN/creatini ne ratio 15 9-23 Not Available [facility] ([facility]) [address] [facility], [place], [address], 12/09/2021 04:08:08 12/09/19 22 12/09/2021 BASIC METAB OLIC PANEL (8) sodium 145 mmol/ L 134-14 4 above high normal Not Available [facility] ([facility]) [address] [place], [address], 12/09/2021 04:08:08 12/09/19 22 12/09/2021 BASIC METAB OLIC PANEL (8) potassium 4.9 mmol/ L 3.5-5. 2 Not Available [facility] ([facility]) [address] [place], [address], 12/09/2021 04:08:08 12/09/19 22 12/09/2021 BASIC METAB OLIC PANEL (8) chloride 106 mmol/ L 96-106 Not Available [facility] ([facility]) [address] [place], [address], 12/09/2021 04:08:08 12/09/19 22 12/09/2021 BASIC METAB OLIC PANEL (8) carbon dioxide, total 24 mmol/ L 20-29 Not Available [facility] ([facility]) [address] [place], [address], 12/09/2021 04:08:08 12/09/19 22 12/09/2021 BASIC METAB OLIC PANEL (8) calcium 9.8 mg/dL 8.7-10 .2 Not Available [facility] ([facility]) [address] [place], [address], 12/09/2021 04:08:08 12/09/19 22 12/09/2021 LIPID PANEL cholesterol, total 242 mg/dL 100-19 9 above high normal Not Available [facility] ([facility]) [address] [place], [address], 12/09/2021 04:08:08 12/09/19 22 12/09/2021 LIPID PANEL triglyceride s 196 mg/dL 0-149 above high normal Not Available [facility] ([facility]) [address] [place], [address], 12/09/2021 04:08:08 12/09/19 22 12/09/2021 LIPID PANEL HDL cholesterol 45 mg/dL >39 Not Available [facility]) [address] [place], [address], 12/09/2021 04:08:08 12/09/19 22 12/09/2021 LIPID PANEL VLDL cholesterol lisa 36 mg/dL 5-40 Not Available [facility] ([facility]) [address] [place], [address], 12/09/2021 04:08:08 12/09/19 22 12/09/2021 LIPID PANEL LDL chol calc ([facility]) 161 mg/dL 0-99 above high normal Not Available [facility] ([facility]) [address] [place], [address], 12/09/2021 04:08:08 12/09/19 22 12/09/2021 LIPID PANEL comment: CONSTRUCTION SUPERVISOR/CARPENTER Not Available [facility] ([facility]) [address] [place], [address], 12/09/2021 04:08:08 12/09/19 22 12/09/2021 HEMOG LOBIN A1C hemoglobin A1C 6.1 % 4.8-5. 6 above high normal Predi abete s: 5.7 - 6.4 Diabe paul: >6.4 Glyce scott contr ol for adult s with diabe paul: <7.0 Not Available [facility] ([facility]) [address] [place], [address], 12/09/2021 04:08:09 02/26/20 22 02/26/2022 LIPID PANEL cholesterol, total 137 mg/dL 100-19 9 Not Available [facility] ([facility]) [address] [place], [address], 02/26/2022 08:21:32 02/26/20 22 02/26/2022 LIPID PANEL triglyceride s 130 mg/dL 0-149 Not Available [facility] ([facility]) [address] [place], [address], 02/26/2022 08:21:32 02/26/20 22 02/26/2022 LIPID PANEL HDL cholesterol 48 mg/dL >39 Not Available [facility] ([facility]) [address] [place], [address], 02/26/2022 08:21:32 02/26/20 22 02/26/2022 LIPID PANEL VLDL cholesterol lisa 23 mg/dL 5-40 Not Available [facility] ([facility]) [address] [place], [address], 02/26/2022 08:21:32 02/26/20 22 02/26/2022 LIPID PANEL LDL chol calc ([facility]) 66 mg/dL 0-99 Not Available [facility] ([facility]) [address] [place], [address], 02/26/2022 08:21:32 02/26/20 22 02/26/2022 LIPID PANEL comment: CONSTRUCTION SUPERVISOR/CARPENTER Not Available [facility] ([facility]) [address] [place], [address], 02/26/2022 08:21:32 02/26/20 22 02/26/2022 AST (SGOT ) AST (SGOT) 37 IU/L 0-40 Not Available [facility] ([facility]) [address] [facility], [place], [address], 02/26/2022 08:21:32 02/26/20 22 02/26/2022 CREAT INE KINAS E,TOT AL creatine kinase,total 65 U/L 32-182 Not Available [facility]) [address] [facility], [place], [address], 02/26/2022 08:21:33 12/23/19 23 12/22/2022 HbA1c (hemo globi n A1c), blood HbA1c 6.1 Not Available In-Office Order Internal Use Only DO Not Attach Compendium DO Not Attach Compendium, Do Not Delete/merge, [id number] 12/21/2022 15:31:29 06/28/20 23 06/29/2023 LIPID PANEL cholesterol, total 161 mg/dL 100-19 9 Not Available [facility] ([facility]) [address] [facility], [place], [address], 06/29/2023 09:12:53 06/28/20 23 06/29/2023 LIPID PANEL triglyceride s 178 mg/dL 0-149 above high normal Not Available [facility] ([facility]) [address] [place], [address], 06/29/2023 09:12:53 06/28/20 23 06/29/2023 LIPID PANEL HDL cholesterol 47 mg/dL >39 Not Available [facility] ([facility]) [address] [place], [address], 06/29/2023 09:12:53 06/28/20 23 06/29/2023 LIPID PANEL VLDL cholesterol lisa 30 mg/dL 5-40 Not Available [facility] ([facility]) [address] [place], [address], 06/29/2023 09:12:53 06/28/20 23 06/29/2023 LIPID PANEL LDL chol calc ([facility]) 84 mg/dL 0-99 Not Available [facility] ([facility]) [address], [place], [address], 06/29/2023 09:12:53 01/06/20 24 01/06/2024 HbA1c (hemo globi n A1c), blood HbA1c 6.2 Not Available In-Office Order Internal Use Only DO Not Attach Compendium DO Not Attach Compendium, Do Not Delete/merge, 01/06/2024 17:14:07 01/06/20 24 01/06/2024 urina lysis , dipst ick Leukocytes Trace Not Available In-Offi ce Order Internal Use Only DO Not Attach Compendium DO Not Attach Compendium, Do Not Delete/merge, 01/06/2024 16:33:51 01/06/20 24 01/06/2024 urina lysis , dipst ick Nitrite negati ve Not Available In-Office Order Internal Use Only DO Not Attach Compendium DO Not Attach Compendium, Do Not Delete/merge, 01/06/2024 16:33:51 01/06/20 24 01/06/2024 urina lysis , dipst ick Urobilinogen .2 Not Available In-Of fice Order Internal Use Only DO Not Attach Compendium DO Not Attach Compendium, Do Not Delete/merge, 01/06/2024 16:33:51 01/06/20 24 01/06/2024 urina lysis , dipst ick Protein Negati ve Not Available In-Office Order Internal Use Only DO Not Attach Compendium DO Not Attach Compendium, Do Not Delete/merge, 01/06/2024 16:33:51 01/06/20 24 01/06/2024 urina lysis , dipst ick pH 5.5 Not Available In-Office Order Internal Use Only DO Not Attach Compendium DO Not Attach Compendium, Do Not Delete/merge, 01/06/2024 16:33:51 01/06/20 24 01/06/2024 urina lysis , dipst ick Blood Negati ve Not Available In-Office Order Internal Use Only DO Not Attach Compendium DO Not Attach Compendium, Do Not Delete/merge, 01/06/2024 16:33:51 01/06/20 24 01/06/2024 urina lysis , dipst ick Specific Fowler 1.030 Not Available In-Off ice Order Internal Use Only DO Not Attach Compendium DO Not Attach Compendium, Do Not Delete/merge, 01/06/2024 16:33:51 01/06/20 24 01/06/2024 urina lysis , dipst ick Ketone Negati ve Not Available In-Office Order Internal Use Only DO Not Attach Compendium DO Not Attach Compendium, Do Not Delete/merge, 01/06/2024 16:33:51 01/06/20 24 01/06/2024 urina lysis , dipst ick Bilirubin Negati ve Not Available In-Office Order Internal Use Only DO Not Attach Compendium DO Not Attach Compendium, Do Not Delete/merge, 01/06/2024 16:33:51 01/06/20 24 01/06/2024 urina lysis , dipst ick Glucose Negati ve Not Available In-Office Order Internal Use Only DO Not Attach Compendium DO Not Attach Compendium, Do Not Delete/merge, 01/06/2024 16:33:51 01/06/20 24 01/06/2024 urina lysis , dipst ick Appearance Slight ly Cloudy Not Available In-Office Order Internal Use Only DO Not Attach Compendium DO Not Attach Compendium, Do Not Delete/merge, 01/06/2024 16:33:51 01/06/20 24 01/06/2024 urina lysis , dipst ick Color Yellow Not Available In-Office Order Internal Use Only DO Not Attach Compendium DO Not Attach Compendium, Do Not Delete/merge, 01/06/2024 16:33:51 01/07/20 24 01/07/2024 micro album in, urine Microalbumin neg Not Available In-Of fice Order Internal Use Only DO Not Attach Compendium DO Not Attach Compendium, Do Not Delete/merge, [id number] 01/06/2024 17:10:33 08/21/19 25 08/21/2024 HbA1c (hemo globi n A1c), blood HbA1c 6.0 Not Available In-Office Order Internal Use Only DO Not Attach Compendium DO Not Attach Compendium, Do Not Delete/merge, [id number] 08/21/2024 15:55:04 09/26/19 25 09/26/2024 LIPID PANEL cholesterol, total 142 mg/dL 100-19 9 Not Available [facility] ([facility]) [address] [facility], [place], [address], 09/26/2024 08:24:23 09/26/19 25 09/26/2024 LIPID PANEL triglyceride s 253 mg/dL 0-149 above high normal Not Available [facility] ([facility]) [address] [facility], [place], [address], 09/26/2024 08:24:23 09/26/19 25 09/26/2024 LIPID PANEL HDL cholesterol 42 mg/dL >39 Not Available [facility] ([facility]) [address] [facility], [place], [address], 09/26/2024 08:24:23 09/26/19 25 09/26/2024 LIPID PANEL VLDL cholesterol lisa 40 mg/dL 5-40 Not Available [facility] ([facility]) [address] [facility], [place], [address], 09/26/2024 08:24:23 09/26/19 25 09/26/2024 LIPID PANEL LDL chol calc ([facility]) 60 mg/dL 0-99 Not Available [facility] ([facility]) [address] [facility], [place], [address], 09/26/2024 08:24:23 09/21/19 21 09/12/2020 XR, abdom en No observ ation record ed. Not Available 2020 17:50:34 09/27/19 21 09/26/2020 XR, abdom en No observ ation record ed. [facility] [address], [place], [address], 10/14/2020 17:50:34 10/05/19 21 10/03/2020 XR, abdom en No observ ation record ed. [facility] [address], [place], [address], 10/14/2020 17:50:34 10/11/19 21 09/26/2020 XR, abdom en No observ ation record ed. Not Available 2020 17:50:34 10/19/19 21 10/10/2020 XR, abdom en No observ ation record ed. Not Available 2020 09:08:08 01/29/20 23 01/28/2023 US, kidne y No observ ation record ed. [email or web address] [facility] [address], [place], [address], 01/31/2023 11:48:49 04/28/20 23 04/27/2023 MAMMO , scree aimee, digit al, bilat eral, w/ CAD No observ ation record ed. EMILEE [facility] [address], [place], [address], 05/04/2023 17:11:27 07/05/20 23 06/28/2023 XR, shoul jcarlos, 2 or more view No observ ation record ed. [email or web address] [facility] [address], [place], [address], 07/20/2023 14:17:49 Result Notes None recorded. Problems Name Problem SNOMED Code Status Onset Date Resolution Date Notes Provider Name and Address Organization Details Recorded Time Obstruct ezra sleep apnea of adult 25272314997 03 Active 2014 EST Liam Menjivar MD Attn: Accounting ,[address] [place], [address] , [place] [facility] 3 14:38:28 Hyperlip idemia 20647632 Active 2021 Liam Menjivar MD Attn: Accounting ,[address] [place], [place], [address] [place] [address] , [place] [facility] 3 14:38:28 Gastroes ophageal reflux disease without esophagi tis 422766727 Active 2022 Liam Menjivar MD Attn: Accounting ,[address] [facility], [place], [place], [address] [place] [address] , [facility] 3 15:23:16 Vitamin D deficien cy 86449138 Active 2023 Liam Menjivar MD Attn: Accounting ,[address] [place], [place], [address] [place] [address] , [facility] - [facility] 4 14:08:11 Urinary symptoms 148875473 Active 2023 Liam Menjivar MD Attn: Accounting ,[address] [place], [place], [address] [place] [address] , [facility] - [facility] 4 16:33:49 Prediabe paul 280662420 Active 2016 [facility] Attn: Accounting ,[address] [place] [address], [address] [place] [address] , [facility] - [facility] 5 15:54:54 Benign essentia l hyperten karen 0923669 Completed 201101/31/2013 Location : None;Sev erity: Moderate ;Progres s: Stable;A dded By: Marisabel Galaviz;Add to Current Problems : NO Liam Menjivar MD Attn: Accounting ,[address], [place], [address] [place] [address] , [place] [facility] 3 14:37:32 Headache 75470902 Completed 201409/20/2014 Location : None;Sev erity: Moderate ;Progres s: Stable;A dded By: Rosalva Martinze;Add to Current Problems : YES Not Available [facility] 7 10:44:29 Benign essentia l hyperten karen 9829151 Active 2012 Liam Menjivar MD Attn: Accounting ,[address] [place], [place], [address] [place] [address] , [facility] 3 14:37:32 Carpal tunnel syndrome 63361463 Completed 201209/15/2012 Location : None;Sev erity: Moderate ;Progres s: Stable;A dded By: Jamir Funk;Ad d to Current Problems : NO Not Available [facility] 7 10:44:30 Arthropa thy 292278776 Completed 201209/15/2012 Location : None;Sev erity: Moderate ;Progres s: Stable;A dded By: Jamir Funk;Ad d to Current Problems : NO Not Available [facility] 7 10:44:30 Screenin g for osteopor osis Completed 201209/15/2012 Location : None;Sev erity: Moderate ;Progres s: Stable;A dded By: Jamir Funk;Ad d to Current Problems : NO Not Available [facility] 7 10:44:30 Atopic dermatit is 16395402 Active 2012 Liam Menjivar MD Attn: Accounting ,[address], [place], [address] [place] [address] , [facility] 3 14:37:29 Psoriasi s with arthropa thy Active 2012 Liam Menjivar MD Attn: Accounting ,[address] [place], [place], [address] [place] [address] , [facility] - [facility] 3 14:37:51 Long-ter m drug therapy Active 2012 Liam Menjivar MD Attn: Accounting ,[address] [place], [place], [address] [place] [address] , [facility] 3 14:37:44 Skin sensatio n disturba nce 30517887 Completed 201410/19/2014 Location : None;Sev erity: Moderate ;Progres s: Stable;A dded By: Marisabel Galaviz;Add to Current Problems : YES Not Available [facility] 7 10:44:30 Tubercul osis screenin g Completed 201410/19/2014 Location : None;Sev erity: Moderate ;Progres s: Stable;A dded By: Marisabel Galaviz;Add to Current Problems : YES Not Available [facility] 7 10:44:30 Uric acid urolithi asis 481908592 Active 2014 Liam Menjivar MD Attn: Accounting ,[address] [place], [address] , [facility] 3 14:38:07 Screenin g for malignan t neoplasm of colon Active 2014 Liam Menjivar MD Attn: Accounting ,[address] [place], [address] , [facility] 3 14:37:54 Impacted cerumen 69136497 Completed 201510/18/2015 Location : None;Sev erity: Moderate ;Progres s: Stable;A dded By: Mraisabel Galaviz;Add to Current Problems : YES Not Available [facility] 10:44:30 Problem Notes None recorded. Procedures Surgical History Date Name Laterality Status Provider Name and Address Organization Details Recorded Time Dilation and Curettage completed Kathy Jimenez [facility] 08/04/2016 16:23:57 Tonsillectomy completed Courtney Neil MA [facility] 12/10/2016 11:33:05 lithotomy completed Eric Felipe [place] [facility] 10/14/2020 17:21:32 Imaging Results Imaging Date Name Status LastModified by [facility] Details LastModified Time 09/12/2020 XR, abdomen completed Information n ot available 10/14/2020 17:50:34 09/26/2020 XR, abdomen completed [facility] [address], [place], [address], 10/14/2020 17:50:34 10/03/2020 XR, abdomen completed [facility] [address], [place], [address], 10/14/2020 17:50:34 09/26/2020 XR, abdomen completed Information n ot available 10/14/2020 17:50:34 10/10/2020 XR, abdomen completed Information n ot available 10/19/2020 09:08:08 01/28/2023 US, kidney completed [email or web address] [facility] [address], [place], [address], 01/31/2023 11:48:49 04/27/2023 MAMMO, screening, digital, bilateral, w/ CAD [facility] [address], [place], [address], 05/04/2023 17:11:27 06/28/2023 XR, shoulder, 2 or more view completed [email or web address] [facility] [address], [place], [address], 07/20/2023 14:17:49 Procedure Notes None recorded. Medical Equipment None Reported. Allergies Allergen ID Allergen Name Allergen Category Reaction Reaction Severity Criticality Documentation Date Start Date Code Code System Note Provider Name and Address Organization Details Recorded Time 99737 Aleve medicatio n Not available Not available Not available 07/22/20162011 1 RxNorm Sever ity: Moder ate; Comme nt: Aller gy Type: Adver se React ion; Not Available [facility] 7 03:47:41 20740 Floxin medicatio n Not available Not available Not available 07/22/2016201145 8 RxNorm Sever ity: Moder ate; Comme nt: StopR chrissie : Incor rect infor matio n;All ergy Delet ed On: 08/03;A llerg y Type: Adver se React ion; Not Available [facility] 7 03:47:41 Medications Name Sig Start Date Stop Date Status Note LastModified by Organization Details LastModified Time carisoprod ol 350 mg tablet 11/12 completed Not Available Not Available Not Available cyclobenza payal 10 mg tablet 1/2 - 1 HS prn 11/18 completed RxNorm: 022973; Allow Substit ution: True Not Available Not Available Not Available phenazopyr idine 200 mg tablet TAKE 1 TABLET BY MOUTH THREE TIMES A DAY FOR 2 DAYS 01/28 completed Not Available Not Available Not Available prednisone 5 mg tablet TAKE 4 TABLETS BY MOUTH WITH BREAKFAS T FOR 3 DAYS AND TAPER BY 1 TABLET EVERY 3 DAYS TILL OFF 01/05 completed Not Available Not Available Not Available sulfasalaz ine 500 mg tablet,del ayed release TAKE 2 TABLETS BY MOUTH TWICE DAILY 11/12 completed Not Available Not Available Not Available clobetasol 0.05 % topical cream active Not Available Not Available Not Available allopurino l 100 mg tablet TAKE 2 PO DAILY active RHEUM Not Available Not Available No t Available ciprofloxa janes 500 mg tablet Take 1 tablet every 12 hours by oral route for 14 days. 12/10 completed Not Available Not Available Not Available sulfametho xazole 800 mg-trimeth oprim 160 mg tablet TAKE 1 TABLET BY MOUTH TWICE A DAY 10/14 completed Not Available Not Available Not Available tramadol 50 mg tablet TAKE 1 TABLET BY MOUTH EVERY 6 HOURS NEEDED 10/14 completed Not Available Not Available Not Available Protopic 0.1 % topical ointment Use once daily. 10/14 completed RxNorm: 827559; Allow Substit ution: True Not Available Not Available Not Available meloxicam 7.5 mg tablet 10/14 completed Not Available Not Available Not Available methotrexa te sodium 2.5 mg tablet take 2 tablets PO in AM on Wednesday and 1 tablet PO in PM on Wednesday and 2 tablets PO in AM on Wednesday each week active RHEUM Not Available Not Available No t Available tamsulosin 0.4 mg capsule TAKE 1 CAPSULE BY MOUTH EVERY DAY 12/02 completed Not Available Not Available Not Available prednisone 1 mg tablet 10/14 completed Not Available Not Available Not Available sulfacetam chetan sodium 10 % eye drops instill 1-2 drops q 2 hours for 2 days then use qid for a total of 7 days 08/19 completed RxNorm: 6759457 ;Allow Substit ution: True Not Available Not Available Not Available cephalexin 500 mg capsule Take 1 capsule every 8 hours by oral route for 10 days. 12/10 completed Not Available Not Available Not Available lisinopril 10 mg tablet TAKE 1 TABLET DAILY 2024 active Not Available Not Available Not Avai lable betamethas one dipropiona te 0.05 % topical cream Apply a small amount to the affected area twice a day as needed not to exceed 14 consecut ezra days 09/24 completed RxNorm: 567082; Allow Substit ution: True Not Available Not Available Not Available omeprazole 20 mg capsule,de layed release TAKE 1 CAPSULE DAILY 2024 active Not Available Not Available Not Avai lable folic acid 1 mg tablet Take 1 tablet(s ) by mouth daily active Not Available Not Available No t Available methylpred nisolone 4 mg tablets in a dose pack 01/04 completed Not Available Not Available Not Available atenolol 50 mg tablet Take 1 tablet every day by oral route for 90 days. 2024 active Not Available Not Available Not Avai lable loratadine 10 mg tablet Take 1 daily as needed 10/14 completed RxNorm: 165428; Allow Substit ution: True Not Available Not Available Not Available nabumetone 500 mg tablet Take 1 tablet(s ) by mouth bid active RHEUM Not Available Not Available No t Available Methotrexa te (Anti-Rheu matic) 2.5 mg tablets in a dose pack take 5 tabs weekly 12/10 completed RxNorm: 523352; Allow Substit ution: True Not Available Not Available Not Available rosuvastat in 10 mg tablet TAKE 1 TABLET DAILY AT BEDTIME 2024 active Not Available Not Available Not Avai lable Clobex 0.05 % lotion 10/14 completed Not Available Not Available Not Available omeprazole magnesium 20 mg tablet,del ayed release Take 1 tablet every day by oral route. 11/12 completed Not Available Not Available Not Available nitrofuran toin monohydrat e/macrocry stals 100 mg capsule TAKE 1 CAPSULE BY MOUTH EVERY 12 HOURS FOR 5 DAYS 01/28 completed Not Available Not Available Not Available Enbrel 50 mg/mL (1 mL) subcutaneo us syringe Inject 50 mg subcutan eously q week as directed . 02/19 completed RxNorm: 621386; Allow Substit ution: True Not Available Not Available Not Available loratadine 08/15 completed Allow Substit ution: True Not Available Not Available Not Available loratadine 10 mg capsule Take 1 capsule( s) by mouth daily 01/12 completed Allow Substit ution: True Not Available Not Available Not Available Otezla 30 mg tablet TAKE 1 TABLET TWICE A DAY active RHEUM take 1 tablet twice a day Not Available Not Available Not Available Xeljanz XR 11 mg tablet,ext ended release 11/12 completed Not Available Not Available Not Available Flowflex COVID-19 Antigen Home Test kit 12/21 completed Not Available Not Available Not Available Vitals Date Recorded Body weight Oxygen saturation Oxygen saturation in Arterial blood by Pulse oximetry Heart rate Body temperature Body height Body mass index (BMI) Systolic blood pressure Diastolic blood pressure Provider Name and Address Organization Details Last Updated DateTime 1 608935. 02 g 97 % 97 % 68 /min 98.9 [degF] 157.48 cm 42.6 kg/m2 138 mm[Hg] 82 mm[Hg] Eric Felipe MA [facility] 1 17:16:03 Date Recorded Body height Body mass index (BMI) Body weight Oxygen saturation Oxygen saturation in Arterial blood by Pulse oximetry Heart rate Body temperature Systolic blood pressure Diastolic blood pressure Provider Name and Address Organization Details Last Updated DateTime 2 157.48 cm 42.3 kg/m2 190807. 84 g 97 % 97 % 70 /min 97.5 [degF] 124 mm[Hg] 72 mm[Hg] Eric Felipe MA [place] [facility] 2 15:12:34 Date Recorded Body weight Body temperature Heart rate Oxygen saturation Oxygen saturation in Arterial blood by Pulse oximetry Systolic blood pressure Diastolic blood pressure Provider Name and Address Organization Details Last Updated DateTime 3 21965.7 5 g 97 [degF] 73 /min 96 % 96 % 114 mm[Hg] 75 mm[Hg] Yudelka Reddy MA [facility] 3 14:09:22 Date Recorded Body weight Body temperature Oxygen saturation Oxygen saturation in Arterial blood by Pulse oximetry Heart rate Systolic blood pressure Diastolic blood pressure Provider Name and Address Organization Details Last Updated DateTime 4 800974. 91 g 98 [degF] 95 % 95 % 60 /min 112 mm[Hg] 66 mm[Hg] Rachell Vallejo MA [facility] 4 15:42:57 Date Recorded Body weight Body mass index (BMI) Body height Oxygen saturation Oxygen saturation in Arterial blood by Pulse oximetry Heart rate Body temperature Systolic blood pressure Diastolic blood pressure Provider Name and Address Organization Details Last Updated DateTime 5 69461.8 7 g 39 kg/m2 157.48 cm 95 % 95 % 70 /min 98 [degF] 123 mm[Hg] 76 mm[Hg] Darlyn Miller MA [facility] 5 15:34:39 Social History Question Answer Notes LastModified by [employer] Details LastModified Time Tobacco Smoking Status Never Smoker [facility] 08/04/2016 13:14:42 What Is Your Level Of Alcohol Consumption? Occasional Information not available 10/14/2020 Are You Blind Or Do You Have Difficulty Seeing? No Information not available 08/21/2024 What Is Your Level Of Caffeine Consumption? Occasional Information not available 10/14/2020 Are You Currently Employed? Yes Information not available 08/21/2024 Are You Deaf Or Do You Have Serious Difficulty Hearing? No Information not available 08/21/2024 What Type Of Diet Are You Following? REGULAR Information not available 08/21/2024 What Was The Date Of Your Most Recent Tobacco Screening? 08/21/2024 Information not available 08/21/2024 What Is Your Relationship Status? Information not available 08/21/2024 Do You Use Your Seat Belt Or Car Seat Routinely? Yes Information not available 08/21/2024 Do You Feel Stressed (tense, Restless, Nervous, Or Anxious, Or Unable To Sleep At Night)? [id number] Information not available 08/21/2024 Do You Or Have You Ever Used Any Other Forms Of Tobacco Or Nicotine? No Information not available 10/14/2020 Sex: Female Functional Status Question Answer Note LastModified by Organizat ion Details LastModified Time Are you able to care for yourself? Yes Information not available 08/21/2024 What is your exercise level? Occasional Information not available 08/21/2024 Mental Status None recorded. Family History Relationship Description Onset Age of this Age Resolved Age Notes LastModified by Organization Details LastModified Time Sister Cerebrovascu lar accident ssadlowskima Not available 08/04/2016 16:24:11 Sister Coronary arterioscler osis ssadlowskima Not available 16:24:20 Sister Diabetes mellitus ssadlowskima Not available 16:24:37 Sister Heart disease ssadlowskima Not available 16:24:46 Sister Hypertensive disorder ssadlowskima Not available 16:25:01 Sister Myocardial infarction ssadlowskima Not available 16:25:10 Father Coronary arterioscler osis ssadlowskima Not available 16:24:20 Father Depressive disorder ssadlowskima Not available 16:24:28 Father Heart disease ssadlowskima Not available 16:24:46 Father Hypertensive disorder ssadlowskima Not available 16:25:01 Father Myocardial infarction ssadlowskima Not available 16:25:10 Mother Diabetes mellitus ssadlowskima Not available 16:24:37 Mother Hypertensive disorder ssadlowskima Not available 16:25:01 Brother Hypertensive disorder ssadlowskima Not available 16:25:01 Medical History Condition Response High Blood Pressure Y Muscle, Joint, or Bone Problems Y Acid Reflux (GERD) Y Kidney or Bladder Problems Y Skin Problems Y Diabetes Y Allergies Y Gynecological History Statement/Question Response Menses Monthly N Obstetrics History GPAL:G 0 P 0 0 0 0 Immunizations Vaccine Type Date Status Note Provider Pacheco e and Address Organization Details Recorded Time COVID-19, mRNA, LNP-S, PF, 100 mcg/0.5mL dose or 50 mcg/0.25mL dose 1 completed Liam Menjivar MD Attn: [address]ing[address], [address] [place] [address], [place] [facility] 12/21/2022 15:41:37 COVID-19, mRNA, LNP-S, PF, 100 mcg/0.5mL dose or 50 mcg/0.25mL dose 1 completed Liam Menjivar MD Attn: Accounting[address] [place], [address] [place] [address], [place] [facility] 12/21/2022 15:41:38 COVID-19, mRNA, LNP-S, PF, 100 mcg/0.5mL dose or 50 mcg/0.25mL dose 1 completed Liam Menjivar MD Attn: Accounting[address] [place], [address] [place] [address], [place] [facility] 12/21/2022 15:41:38 Influenza, MDCK, quadrivalent, PF 0 completed Liam Menjivar MD Attn: Accounting[address] [place], [address] [place] [address], [place] [facility] 12/21/2022 15:41:37 COVID-19, mRNA, LNP-S, PF, 100 mcg/0.5mL dose or 50 mcg/0.25mL dose 1 completed Liam Menjivar MD Attn: [address]ing[address] [place], [address] [place] [address], [place] [facility] 12/21/2022 15:41:38 COVID-19, mRNA, LNP-S, bivalent, PF, 30 mcg/0.3 mL dose 2 completed Liam Menjivar MD Attn: Accounting[address] [place], [address] [place] [address], [place] [facility] 12/21/2022 15:41:38 Influenza, split virus, trivalent, preservative 1 completed Liam Menjivar MD Attn: Accounting[address] [facility], [place], [address], [place] [facility] 12/21/2022 15:41:38 Influenza, split virus, quadrivalent, PF 8 completed Liam Menjivar MD Attn: Accounting[address] [facility], [place], [place], [address] [place] [address], [place] [facility] 12/21/2022 15:41:38 Influenza, split virus, quadrivalent, PF 2 completed Liam Menjivar MD Attn: Accounting[address] [facility], [place], [place], [address] [place] [address], [place] [facility] 12/21/2022 15:41:38 Influenza, MDCK, quadrivalent, PF 4 completed [facility] Attn: Accounting[address] [place], [address] [place] [address], [place] [facility] 08/21/2024 15:59:21 Tdap 2 completed Darlyn Miller [place], [place] [facility] 11/12/2021 16:11:41 Td (adult), 2 Lf tetanus toxoid, preservative free, adsorbed 1 completed Liam Menjivar MD Attn: [address] [place], [address] [place] [address], [place] [facility] 12/21/2022 15:41:38 Influenza, split virus, trivalent, preservative 9 completed Not Available [facility] 06/26/2022 08:49:43 TST-PPD intradermal 5 completed Liam Menjivar MD Attn: [address]ing[address] [place], [address] [place] [address], [place] [facility] 12/21/2022 15:41:38 Pneumococcal conjugate PCV20, polysaccharide [id number] conjugate, adjuvant, PF 5 completed [facility] Attn: Accounting[address] [place], [address] [place] [address], [place] [facility] 08/21/2024 17:14:28 Past Encounters Encounter ID Performer Location Encounter Start Date Encounter Closed Date Diagnosis/Indication Diagnosis SNOMED-CT Code Diagnosis ICD10 Code Diagnosis Note [id number] Marisabel Galaviz MD [facility] [address] [place] [address] 08/04/2016 14:22:40 08/05/2016 14:20:06 Acute maxillary sinusitis 59611755 J01.00 [id number] Marisabel Galaviz MD [facility] [address] [place] [address] 12/10/2016 11:34:50 12/10/2016 15:27:02 Pain of shoulder region 20498169 M25.391 [id number] Marisabel Galaviz MD [facility] [address] [place] [address] 01/04/2018 14:39:14 01/05/2018 12:29:55 Essential hypertension 30079184 I10 Adult [facility] th examination 918630994 Z00.00 Type 2 tawnya betes mellitus without complication 014815531 E11.9 Gout 55438071 M10.9 [id number] Marisabel Galaviz MD [facility] [address] [place] [address] 09/23/2018 14:07:05 09/26/2018 09:15:22 Type 2 diabetes mellitus without complication 432175407 E11.9 No Statin due to RA Body mass index 40+ - severely obese 632347225 Z68.41 Viral uppe r respiratory tract infection 768855130 J06.9 [id number] Marisabel Galaviz MD [facility] [address] [place] [address] 09/25/2019 17:26:46 09/26/2019 11:26:39 Benign essential hypertension 2438374 I10 Gastroesop hageal reflux disease 312994800 K21.9 Type 2 tawnya betes mellitus without complication 043871381 E11.9 No Statin due to RA Body mass index 40+ - severely obese 761701051 Z68.41 Left upper quadrant pain 582493534 R10.12 Screening for malignant neoplasm of breast 094665899 Z12.39 [id number] Marisabel Galaviz MD [facility] [address] [place] [address] 10/14/2020 17:03:34 10/15/2020 11:22:04 Benign essential hypertension 6074838 I10 Adult heal th examination 771065881 Z00.00 Type 2 tawnya betes mellitus without complication 153023368 E11.9 Body mass index 40+ - severely obese 494377442 Z68.41 [id number] Marisabel Galaviz MD [facility] [address] [place] [address] 11/12/2021 14:52:21 11/13/2021 10:15:23 Adult health examination 465829598 Z00.00 Type 2 tawnya betes mellitus without complication 066740101 E11.9 Body mass index 40+ - severely obese 001251421 Z68.41 Benign ess ential hypertension 9199297 I10 Administra tion of diphtheria, pertussis, and tetanus vaccine 460409586 Z23 [id number] Liam Menjivar MD [facility] [address] [place] [address] 12/21/2022 13:46:40 12/22/2022 11:13:40 Adult health examination 151409587 Z00.00 # Health Maintenanc e(>18) Depression screen: Denies feeling depressed or having little pleasure in doing things.(>3 5) Lipid disorders screening: up-to-date . On statins, 10-yr ASCVD risk >7.5.(45/5 5-79) Aspirin to prevent CVD: not taking aspirin. ASCVD <10.(54-74 ) Hepatitis screening: up-to-date , born between 9216-9332. (50-75) Colorectal cancer screening: up-to-date .Female(21 -65) Cervical cancer screening: h/o hysterecto my.(50-74) Breast cancer screening: due for mammogram. VaccinesTd ap: up-to-date .Influenza vaccine: advised to get vaccine during influenza season Apr-November.(> 60) Zoster vaccine: encouraged (>65, 19-65 DM/COPD, Ast/CHF) Pneumonia vaccine: N/A.- Counseled on healthy diet and physical activity. Benign ess ential hypertension 7605905 I10 # HTN - {{Controll ed* Nearly controlled Suboptima lly controlled Uncontrol led}} - Continue current medication s. No change in management - Encouraged routine blood pressure checksat home, targetless than 140/90 - DiscussedD SOFI diet(https ://www.nhl bi.nih.gov /files/doc s/public/h eart/dash_ brief.pdf) anddietary sodium restrictio ns - Continue/I ncrease dietary efforts and physical activity Hyperlipidemia 14697317 E78.5 # Hyperlipid emia- Last lipid panel {{<* >}} 1 year ago- ACC/AHA CV risk {{<* >}} 7.5%- Repeat {{today at earliest convenienc e prior to next visit* in one year}}- Continue with current management without changes.- Focus on a dietlow in saturated fats(https ://www.[facility] fhealth.or g/educatio n/guidelin es-for-a-l ow-cholest tan-low-s aturated-f at-diet),b lood pressure control,sm oking cessation( http://emili tyes.org/) anddaily exerciseto reduce your risk ofheart disease and stroke. Gastroesop hageal reflux disease without esophagitis 126621864 K21.00 # GERD {{Continue current treatment with nursing home proton pump inhibitor, low-dose* Continue current treatment with nursing home proton pump inhibitor, high-dose Continue current treatment with terminal supervisor H2 melissa Em piric low-dose proton pump inhibitor treatment x 12 weeks and re-evaluat e}} No suspected reflux complicati ons (Eastman/s tricture) Lifestyle modificati on: weight loss, avoid meals 2-3 hours before bedtime Consider limiting or eliminatin g food triggers:c hocolate, caffeine, citrus fruits/jui adrian, alcohol, acid/spicy food.Smoki ng cessation if indicatedY early vitamin B12 and folic acid levels for nursing home proton pump inhibitor use Type 2 tawnya betes mellitus without complication [id number] E11.9 # Diabetes Mellitus type 2 {{Controll ed* Uncont rolled}} - 6.1 {{Continue current management * Adjustin g management :}} Patient is on ACEi, statin. Lipid panel checked {{< year ago* > year ago, ordered}} Microalbum in checked {{< year ago > year ago, ordered*}} Continue/I ncrease dietary efforts and physical activity. Routine diabetic retinopath y screening: {{due up-t o-date*}} Obstructiv e sleep apnea of adult [id number] 103 G47.33 # LANNY on CPAPGood compliance .Symptoms improved.C ontinue to monitor. Long-term drug therapy [id number] Z79.899 Reviewed recent routine labwork for ongoing long-term medication use. Uric acid urolithiasis 950514702 N20.9 - ongoing treatment and monitoring per urology Screening mammography of bilateral breasts [id number] 56602 Z12.31 Body mass index 40+ - severely obese 357613142 Z68.41 Focus on a healthy diet, avoid added salt, and [id number] calories or less daily. Exercise as tolerated, targeting3 0-60 minutes of exercise daily, at least 5 days per week [id number] Liam Menjivar MD [facility] [address] [facility] [place] [place] [address] 01/06/2024 15:12:46 01/06/2024 21:37:51 Adult health examination 304684703 Z00.00 # Health Maintenanc e(>18) Depression screen: Denies feeling depressed or having little pleasure in doing things.(>3 5) Lipid disorders screening: up-to-date . On statins(50 -75) Colorectal cancer screening: due, ordered.Fe male(21-65 ) Cervical cancer screening: h/o hysterecto my.(50-74) Breast cancer screening: up to dateVaccin esTdap: up-to-date .Influenza vaccine: advised to get vaccine during influenza season Apr-November.(> 60) Zoster vaccine: encouraged (>65, 19-65 DM/COPD, Ast/CHF) Pneumonia vaccine: N/A.Activi ty/Exercis e- Counseled on healthy diet and physical activity. Benign ess ential hypertension 6073853 I10 # HTN {{Controll ed* Nearly controlled Suboptima lly controlled Uncontrol led}} Continue current medication s. No change in management Encouraged routine blood pressure checksat home, targetless than 140/90 DiscussedD SOFI diet(https ://www.nhl bi.nih.gov /files/doc s/public/h eart/dash_ brief.pdf) anddietary sodium restrictio ns Continue/I ncrease dietary efforts and physical activity Hyperlipidemia 00440640 E78.5 # Hyperlipid emiaLast lipid panel {{<* >}} 1 year agoACC/AHA CV risk {{<* >}} 7.5%Repeat {{today at earliest convenienc e prior to next visit* in one year}}Cont inue with current management without changes.Fo cus on a dietlow in saturated fats(https ://www.[facility] fhealth.or g/educatio n/guidelin es-for-a-l ow-cholest atn-low-s aturated-f at-diet),b lood pressure control,sm oking cessation( http://emili tyes.org/) anddaily exerciseto reduce your risk ofheart disease and stroke. Gastroesop hageal reflux disease without esophagitis 291904627 K21.00 # GERD {{Continue current treatment with nursing home proton pump inhibitor, low-dose* Continue current treatment with terminal supervisor proton pump inhibitor, high-dose Continue current treatment with nursing home H2 melissa Em piric low-dose proton pump inhibitor treatment x 12 weeks and re-evaluat e}} No suspected reflux complicati ons (Eastman/s tricture) Lifestyle modificati on: weight loss, avoid meals 2-3 hours before bedtime Consider limiting or eliminatin g food triggers:c hocolate, caffeine, citrus fruits/jui adrian, alcohol, acid/spicy food.Smoki ng cessation if indicatedY early vitamin B12 and folic acid levels for nursing home proton pump inhibitor use Obstructiv e sleep apnea of adult [id number] 103 G47.33 # LANNY on CPAPGood compliance .Symptoms improved.C ontinue to monitor. Type 2 tawnya betes mellitus without complication 318372962 E11.9 # Diabetes Mellitus type 2{{Control led* Uncon trolled}} - 6.2{{Eliza nue current management * Adjustin g management :}}Patient is on ACEi, statin.Lip id panel checked {{< year ago* > year ago, ordered}}M icroalbumi n checked {{< year ago > year ago, ordered*}} - 0Continue/ Increase dietary efforts and physical activity.R outine diabetic retinopath y screening: {{due up-t o-date*}}D iabetic foot exam completed today Uric acid urolithiasis 436816312 N20.9 - ongoing treatment and monitoring per rheumatolo gy Body mass index 40+ - severely obese 822871102 Z68.41 Focus on a healthy diet, avoid added salt, and [id number] calories or less daily. Exercise as tolerated, targeting3 0-60 minutes of exercise daily, at least 5 days per week Long-term drug therapy 120563846 Z79.899 Reviewed recent routine labwork for ongoing long-term medication use. Urinary symptoms 5595849 08 R39.9 # UTI, uncomplica francisco Urine dipstick: {{+* neg}} leukocyte esterase, {{+ neg*}} nitrites, {{+ neg*}} blood Start empiric antibiotic {{Nitrofur antoin 100 mg bid X 5 days* Trim ethoprim-s ulfamethox azole 800 mg/160 mg bid x 3 days Cepha lexin 500 mg bid x 5 days Amoxi cillin/cla vulanate 875 mg/125 mg bid x 5 days Cefdi kirti 300 mg bid x 5 days Cipro floxacin 250 mg bid x 3 days}} Consider cranberry juice for symptom-re lief Phenazopyr idine 200 mg 3 times daily x 2 days if needed for comfort (turns urine orange, sometimes can affect contact lenses) Await urine culture results Call if not improving in 48 hoursPatie nt voices understand ing and agreement with plan Screening for malignant neoplasm of colon 391349849 Z12.11 Z12.12 [id number] Paula Ambriz MD [facility] [address] [facility] [place] [facility] [place] [address] 08/21/2024 15:21:34 08/22/2024 10:41:52 Benign essential hypertension 0928011 I10 -Controlle d on current therapy.-G oals: BP < 140/90 per JNC8, prevent CV and renal comorbidit ies.-Shoul d notify office for BP less than 90/60.-Ester blakely a low sodium (less than 2000mg) diet and encouraged at least 30-45 minutes of aerobic activity most days of the week-Healt hy weight-f/u 6 months Hyperlipidemia 57612614 E78.5 Follow a low fat and low cholestero l diet.Reduc e dietary intake of fat to less than 30% of total calories.L imit total cholestero l to less than 200mg per day.Minimi ze use of trans fatty acids.Incr ease intake of fiber, vegetables , fruits and other whole grains.Par ticipate in aerobic exercise (at least 30 minutes 4 days a week).Avoi d tobacco products. Obesity 154431908 E66.9 1. Restrict Caloric Intake: Instead of calculatin g total calories, you can eliminate one food item from daily intake at a time that would be worth of 100-200 kcal. Minimize Processed carbohydra paul (Potatoes, Pasta, Bread, rice and corn) and processed sugars (Sodas, Cookies, Donuts & Desserts). Small plates and bowels. Small meals (Under 250kcal) at a time! 2. Quality of Diet: Organic, Non-GMO, fresh, raw-food, whole-food & more fruits and vegetables . Look for lean protein (Soy, Lentils, beans, legumes and nuts). Avoid processed food (frozen, canned, fast-food) . Shop food economical ly from multiple places. 3. Stress Reduction: Yoga, Mindfulnes s, Exercise, Volunteeri ng, Spirituali ty! Mindfulnes s eating (Avoid multi-task ing while eating and Increase awareness of what food is doing to Body). 4. Quality Restful Sleep: Melatonin, Yoga-Nidra , Kiwi fruit. Avoid meals in last two hours of the day. Avoid Caffeine, alcohol, high sugar/glen erts and tobacco with or after dinner. 5. Increase Exertion within Daily Activities : [phone] Steps/day. Avoid Elevators, escalators at public places. Increase steps in parking lots! Prediabetes 399158539 R7 3.03 -A1C still consistent with prediabete s at 6.0-Advise d to cut the carbohydra paul in diet (bread, pasta, rice, potatoes, and sweets) and increase physical activity to goal of 150 min of aerobic activiy weekly.-re check in 1 year Gastroesop hageal reflux disease without esophagitis 320009055 K21.9 -pt has worsening GERD symptoms-- sore throat, feeling like her throat is swelling with some foods and dysphagia. -advised we switch from omeprazole to pantoprazo le 40 mg but patient would like to call her insurance to ask what the pricing would be before doing so. She will call us and let nurse know if I can send in.-discus sed food triggers and what to avoid and when to present to the ER for symptoms such as throat swelling/c losing, lips or tongue turning blue, SOB, facial swelling, etc.-will send GI referral for evaluation and treatment. Adult heal th examination 447909784 Z00.01 MAMMO-decl abdi, last one was 2022.Colon oscopy- due in 2026PAP- completed 02/01/2024, IUD was removed as wellVaccin es-flu-1/2 01/09, pneumonia- 08/21/24, shingles-d eclines, tdap- declines Administra tion of pneumococcal vaccine 58528277 Z23 Health Concerns Section Related Observation LastModified by Organization Detai ls LastModified Time None Recorded Concern Status LastModified by Organization Details LastModified Time None Recorded Advance Directives Directive None Recorded Payers Encounter Date Sequence Insurance Name Policy Number Policy Fernando Covered Member ID Fernando Member ID Guarantor Name 10/14/2020 1 [facility] ([facility]) [id number] Bren Sandesr [id number] Bren Sanders 11/12/2021 1 [facility] ([facility] [id number] Bren Sanders [id number] Bren Sanders 12/21/2022 1 [facility] (O) [id number] Bren Sanders [id number] Bren Sanders 01/06/2024 1 [facility] ([facility] [id number] Bren Sanders [id number] Bren Sanders 08/21/2024 1 [facility] ([facility] [id number] Bren Sanders [id number] Bren Sanders Notes Date Note Type Note Provider Name and Address Organization Details Recorded Time 10/15/19 21 text/htm l Abdominal PainReported bypatient.Location:[facility]; recent surgery to remove kidney stones Quality:cannot identify;bloating;aching Severity:moderate Duration:cannot identify Onset/Timing:gradual Context:history of kidney stones Associated Symptoms:no fever; no chills; no shortness of breath;blood in the urine;heartburn Other:denies possible pregnancyHypertension F/UReported bypatient.Associated Symptoms:no dizziness; no lightheadedness; no chest pain; no shortness of breath; no edema; no calf pain with exertion;palpitations(occasional ) Lifestyle:limiting/avoiding salt Medications:taking medications as directed; no side effects from medication needs form work wellness form filled out. Marisabel roe [facility] 10/14/2020 17:51:20 11/13/19 22 text/htm l annual Marisabelyoni roe [facility] 11/12/2021 15:57:01 12/22/19 23 text/htm l ANNUAL HEALTH MAINTENANCE VISIT/SUBJECTIVE: The patient presents for routine yearly health maintenance visit. Last routine follow-up office visit: Last labwork: Patient reports consistent use of medications, without side effects or intolerances. Current concerns: - headache -- light affects vision initially -- occasional, episodic headache, not often -- dissipates after bowel movement - renal stones since 2013 - follows with Dr. Trotter - stone extraction scheduled for this Wednesday Health maintenance: - Immunizations due: vzv - Colorectal cancer screening: remote - Dell/Shannan??? - Well-woman exam: [facility] - Mammography: 2020 -ORDER- [facility] - DEXA: remote - Rheum Hypertension - On atenolol, lisinopril - Consistent use of medications - Does not report any headaches, blurry vision, dizziness, chest pain, shortness of breath - palpitations ongoing - Not following a low salt diet. - Exercising - work-related exercise Hyperlipidemia - Consistent use of lipid-lowering medication(s) - No side effects - Following a low-cholesterol diet - Last lipid panel < 1 year ago GERD - No complaint of heartburn/regurgitation on proton pump inhibitor - Denies cough, shortness of breath, sore throat, changes of taste - No dysphagia - No chest pain Diabetes type 2 Last hemoglobin A1c: 47Org43 Last foot exam:DUE Last eye exam:DUE Last urine microalbumin:27Kly35 Last lipid panel: 66Vgc77 On new medications, dietary control only Consistent use of medications. On ACEi . No hypoglycemic events Checking blood glucose at home No complaints of foot pain or paresthesias Diabetic foot exam < 1 year ago Diabetic eye exam < 1 year ago Following a low carb diet Exercising LANNY on CPAP - Good adherence to CPAP use - Comfortable with CPAP pressures and mask fit - Reports improvement in alertness and quality of life - [employer]an [employer] Specialist/Nursing note reviewed. - Liam Menjivar MD Attn: Accounting, [address] [facility], [place], [address], [facility] 12/21/2022 21:35:52 01/06/20 24 text/htm l ANNUAL HEALTH MAINTENANCE VISIT/SUBJECTIVE: Bren presents for routine yearly health maintenance visit. Last routine follow-up office visit: [id number] labwork: Patient reports consistent use of medications, without side effects or intolerances. Current concerns:frequent kidney stonespressure suprapubic - 2 weeks Health maintenance:Immunizations due: COVID booster, vzv, RSVColorectal cancer screenin77Snh34 - Gill - 5yrfu - [facility], [facility]-woman exam: [facility]: [id number]: rheumLDCT: never smoker Patient does not smoke.Alcohol: occasional. Not worried/guilty about drinking habits.No recreational drug useDiet: regular.Exercise: regularly at workOccupation: educational assistanceLives at home w/ by herself Hypertension On {{ amlodipine atenolol* benazepr il bisoprolol bumetanide candesa rtan carvedilol chlorthalidone c lonidine diltiazem doxazosin brooklynn lapril felodipine fosinopril fur osemide guanfacine hydralazine h ydrochlorothiazide indapamide ir besartan labetalol lisinopril lo sartan metolazone metoprolol nad olol nebivolol nicardipine nifed ipine olmesartan perindopril pra zosin propranolol quinapril rami pril sotalol spironolactone telm isartan terazosin torsemide win dolapril triamterene valsartan v erapamil}}{{ , amlodipine , atenolol , benazepril , bisoprolol , bumetanide , candesartan , carvedilol , chlorthalidone , clonidine , diltiazem , doxazosin , enalapril , felodipine , fosinopril , furosemide , guanfacine , hydralazine , hydrochlorothiazide , indapamide , irbesartan , labetalol , lisinopril* , losartan , metolazone , metoprolol , nadolol , nebivolol , nicardipine , nifedipine , olmesartan , perindopril , prazosin , propranolol , quinapril , ramipril , sotalol , spironolactone , telmisartan , terazosin , torsemide , trandolapril , triamterene , valsartan , verapamil}} {{Consistent* Inconsistent}} use of medications {{Reports Does not report any*}} headaches, dizziness, chest pain, shortness of breath, or palpitations - blurry vision follows with eyecare professional {{Following* Not following}} a low salt diet. {{Exercising* Not exercising Limited exercise}} Hyperlipidemia {{Consistent use of lipid-lowering medication(s)* Inconsistent use of lipid-lowering medication(s) On no medication(s) at this time}} {{No side effects* Notes side effects including:}} {{Following* Not following}} a low-cholesterol diet Last lipid panel {{<* >}} 1 year ago Gastroesophageal reflux disorder {{Complaint No complaint*}} of heartburn/regurgitation on {{no medication oruu-fqw-xqacang antacids H2 melissa proton pump inhibitor* high-dose proton pump inhibitor}} {{Denies* Reports}} cough, shortness of breath, sore throat, changes of taste {{+ No*}} dysphagia {{+ No*}} chest pain Diabetes type 2Last hemoglobin A1c: 12Jes64Wqeh foot exam:DUELast eye exam:completedin the past 6 months - LeeFermin urine microalbumin:61Skq77Trpb lipid panel: 18Prc88 On new medications, dietary control onlyConsistent use of medications. On ACEi . No hypoglycemic eventsChecking blood glucose at homeNo complaints of foot pain or paresthesias - occasionalDiabetic foot exam < 1 year agoDiabetic eye exam < 1 year agoFollowing a low carb dietExercising LANNY on CPAP- Good adherence to CPAP use- Comfortable with CPAP pressures and mask fit- Reports improvement in alertness and quality of life Psoriasis w/ arthropathy- follows with rheumatology-[employer] Specialist/Nursing note reviewed.- Liam Menjivar MD Attn: Accounting, [address] [facility], [place], [address], [facility] 01/06/2024 17:26:49 08/21/19 25 text/htm l Diabetes F/UReported bypatient.Labs:last A1C result: 6.2; 01/06/24 Context:seeing eye doctor regularly; not missing doses of medications; no side effects from medications;not checking feet regularly;not taking aspirin daily Associated Symptoms:no weight gain; no dizziness; no sweats; no confusion; no increased thirst; no increased appetite; no increased urination; no numbness of feet; no calluses on feet;weight loss (11 lbs);headaches(has been headaches on rt side);blurred visionHyperlipidemiaReported bypatient.Current Therapy:currently taking: (rosuvastatin 10 mg); last cholesterol level: (161); last LDL level: (84); last triglyceride level: (178); last HDL level: (47); 06/28/23 Compliance:exercises (some) Complications:no coronary artery disease; no peripheral artery disease; no cardiovascular disease Risk Factors:diabetes;hypertensionHyp ertension F/UReported bypatient.Associated Symptoms:no dizziness; no lightheadedness; no chest pain; no shortness of breath; no edema; no calf pain with exertion;palpitations(sometimes) Lifestyle:high salt intake Medications:taking medications as directed; no side effects from medication She is also having increase acid reflux symptoms and is experiencing a hard time swallowing when she eats anything with citrus or carbonation. She is taking her daily omeprazole and avoiding the foods she now knows are causing discomfort. CASS Del Rio Attn: Accounting, [address] [facility], [place], [address], [facility] 08/21/2024 17:17:55 OBGyn Episode No OBEpisode recorded.
--- OUTSIDE RECORDS SUMMARY | 2024-11-20 02:55 | XMS_ITS | Clinical Summary ---
Author Organization [facility] Address [address] [place] [address] Care Team Providers Care Access Manager Name Role Phone Unavailable Primary Care Provider Unavailabl e Social History Tobacco Use Types Packs/Day Years Used Date Smoking Tobacco: Never Assessed Comments Unknown Sex and Gender Information Value Date Recorded Sex Assigned at Not on file Legal Sex Female 8:30 PM CDT Gender Identity Not on file Sexual Orientation Not on file Plan of Treatment Health Maintenance Due Date Last Done Comments Cervical Cancer Screening Pa p Smear (Age 30 to 64) Every 3 Years 1962 Colorectal Cancer Screening Colonoscopy (10 Years) 1962 Annual Physical 1965 Hepatitis C 1980 DTaP, Tdap and Td Vaccines ( 1 - Tdap) 1981 Cervical Cancer Screening Pa p with HPV Testing (Age 30 to 64) Every 5 Years 1992 Cervical Cancer Screening with HPV 1992 Mammogram Screening 2002 Pneumococcal Vaccine: 50+ Ye ars (1 of 1 - PCV) 2012 Zoster Vaccines (1 of 2) 2012 COVID-19 Vaccine (2023-2 5 season) 2024 RSV Immunization or 60+ Years (1 - 1-dose 75+ series) 2037 Meningococcal B Vaccine Aged Out No l onger eligible based on patient's age to complete this topic Meningococcal Vaccine Aged Out No dakota verena eligible based on patient's age to complete this topic RSV Immunizations Under 20 Months Aged Out No longer eligible based on patient's age to complete this topic
[2024-11-20 12:45] VITALS: BP 139/65; PULSE 53; RESP 18; TEMP 36.1; O2SAT 100
[2024-11-20] MEDS: LACTATED RINGERS 1,000 ML 150 ML IV CONT (12:59)
--- NOTE | 2024-11-20 13:16 | WPDANESEPPF ---
Anes - Initial Pre Proc Eval Procedure: Operation Date: 11/20/24 13:00 Proposed Procedures p Esophagogastroduodenoscopy & Colonoscopy - Dontae James MD Date/Time: 11/20/24 13:16 Surgeon: Dontae James MD Pre Op Diagnosis: Personal history of colon polyps, unspecified Patient Data Age: 64 Gender: F Height: 1.55 m Weight: 96.5 kg Last Vital Signs Temp 97 F L 11/20/24 12:45 Pulse 53 L 11/20/24 12:45 Resp 18 11/20/24 12:45 BP 139/65 11/20/24 12:45 Pulse Ox 100 11/20/24 12:45 O2 Del Method Room Air 11/20/24 12:45 Allergies Allergy/AdvReac Type Severity Reaction Status Date / Time naproxen (From Aleve) AdvReac Gastrointestinal Verified 11/20/24 12:44 Upset Sulfa (Sulfonamide AdvReac Congested Verified 11/20/24 12:44 Antibiotics) Home Medications ?Medication ?Instructions ?Recorded ?Confirmed ?Type allopurinol 100 mg tablet 100 mg PO BID 09/04/20 11/13/24 History apremilast 30 mg tablet (Otezla) 30 mg PO BID 09/04/20 11/13/24 History atenolol 50 mg tablet 50 mg PO QPM 09/04/20 11/20/24 History folic acid 1 mg tablet 1 mg PO DAILY 09/04/20 11/13/24 History lisinopril 10 mg tablet 5 mg PO QAM 09/04/20 11/13/24 History methotrexate sodium 2.5 mg tablet 12.5 mg PO DIRECTED 09/04/20 11/13/24 History nabumetone 500 mg tablet (Relafen) 1,000 mg PO DAILY 09/04/20 11/13/24 History rosuvastatin 10 mg tablet 10 mg PO HS 12/18/22 11/13/24 History omeprazole 40 mg capsule,delayed 40 mg PO DAILY #90 caps 09/27/24 11/13/24 Rx release vitamin E 670 mg (1,000 unit) 670 mg PO .4x week 11/13/24 11/13/24 History capsule Patient hx anesthesia problems: none Family hx anesthesia problems: none Results Review: All pre-operative results and documents have been reviewed as part of the pre-operative evaluation. [facility] Past Medical History Medical History Morbid obesity GERD (gastroesophageal reflux disease) LANNY (obstructive sleep apnea) Hypertension Social History Social History Smoking status: Never smoker Alcohol intake: never Alcohol use details: RARE Substance use: never Substance use type: does not use Living arrangements: alone Gender identity (if verbalized by the patient): Female Spiritual care concerns: No Anes - Eval Final PreProcedure Day of Procedure 11/20/24 13:16 Patient weight: morbidly obese Lungs: normal air movement Airway: Mallampati scale class II Neurological: alert and oriented Last oral intake: >/= 8 hours ASA classification: III Emergent: no Anesthetic plan: proceed Anesthesia type and monitoring: general GIVS and standard monitoring Results Review: All pre-operative results and documents have been reviewed as part of the pre-operative evaluation. LANNY on CPAP, BMI 40, HTN, now w dysphagia. Informed Consent: The patient's anesthetic plan and its attendant risks and benefits were discussed with the patient/family/POA. Questions were solicited and answers provided to the satisfaction of the patient/family/POA.
--- NOTE | 2024-11-20 13:20 | PM.HPGS ---
History of Present Illness History of Present Illness Consent: Risks, benefits, and alternatives have been discussed and questions answered. Patient agrees to proceed with procedure. Chief complaint: Personal history of colon polyps, unspecified Narrative: Bren Sanders is a 64 year old female here for first egd, h/o gerd on omeprazole, earlier this year feeling harder time to swallow dry sensation , also had colon polyp 6 years ago Review of Systems Review of Systems: All systems reviewed & are unremarkable except as noted in HPI and below PMFSH Past Medical History Medical History Morbid obesity GERD (gastroesophageal reflux disease) LANNY (obstructive sleep apnea) Hypertension Social History Social History Smoking status: Never smoker Alcohol intake: never Alcohol use details: RARE Substance use: never Substance use type: does not use Living arrangements: alone Gender identity (if verbalized by the patient): Female Spiritual care concerns: No Meds Home Medications and Allergies Home Medications ?Medication ?Instructions ?Recorded ?Confirmed ?Type allopurinol 100 mg tablet 100 mg PO BID 09/04/20 11/13/24 History apremilast 30 mg tablet (Otezla) 30 mg PO BID 09/04/20 11/13/24 History atenolol 50 mg tablet 50 mg PO QPM 09/04/20 11/20/24 History folic acid 1 mg tablet 1 mg PO DAILY 09/04/20 11/13/24 History lisinopril 10 mg tablet 5 mg PO QAM 09/04/20 11/13/24 History methotrexate sodium 2.5 mg tablet 12.5 mg PO DIRECTED 09/04/20 11/13/24 History nabumetone 500 mg tablet (Relafen) 1,000 mg PO DAILY 09/04/20 11/13/24 History rosuvastatin 10 mg tablet 10 mg PO HS 12/18/22 11/13/24 History omeprazole 40 mg capsule,delayed 40 mg PO DAILY #90 caps 09/27/24 11/13/24 Rx release vitamin E 670 mg (1,000 unit) 670 mg PO .4x week 11/13/24 11/13/24 History capsule Allergies Allergy/AdvReac Type Severity Reaction Status Date / Time naproxen (From Aleve) AdvReac Gastrointestinal Verified 11/20/24 12:44 Upset Sulfa (Sulfonamide AdvReac Congested Verified 11/20/24 12:44 Antibiotics) Vital Signs Vital Signs - 24 hr 11/20/24 12:45 Temperature 97 F L Pulse Rate 53 L Respiratory Rate 18 Blood Pressure 139/65 Pulse Oximetry 100 Oxygen Delivery Room Air Exam Const: General: comfortable and no acute distress HENMT: Face/Nose/Sinus: Normal nares present Eyes: General: appearance normal, both eyes and all related structures Neck: Neck: no JVD Resp: Auscultation: clear to auscultation bilaterally Cardio: Rate: regular rate Rhythm: regular rhythm GI: Inspection: non-distended GI Palp: Yes Soft to palpation Skin: General skin exam: normal color Neuro: General: gait normal Speech: normal speech Extrem: General: normal to inspection Psych: Mental Status: mental status grossly normal Assessment and Plan Assessment and plan (1) History of colon polyps: Code(s): Z86.0100 - Personal history of colon polyps, unspecified Status: Acute Assessment and Plan: colonoscopy (2) Dysphagia: Code(s): R13.10 - Dysphagia, unspecified Status: Acute Assessment and Plan: egd (3) GERD (gastroesophageal reflux disease): Code(s): K21.9 - Gastro-esophageal reflux disease without esophagitis Status: Acute Assessment and Plan: on ppi
--- NOTE | 2024-11-20 13:32 | SUR.OPER ---
EGD: [id number] COLON: Start 1334
[2024-11-20 13:40] VITALS: BP 119/60; PULSE 56; RESP 16; O2SAT 99
[2024-11-20 13:50] VITALS: BP 111/58; PULSE 56; RESP 16; O2SAT 99
[2024-11-20 14:00] VITALS: BP 121/63; PULSE 53; RESP 17; O2SAT 99
--- NOTE | 2024-11-20 14:12 | SUR.PHASEII ---
patient asked is it normal to have gas after? . Patient was offered a soda and stated after, i feel better . Patient was given physicians number if gas discomfort comes back and becomes painful.
== END 2024-11-20 14:12 | disposition home or self-care (01) ==
PROVIDERS: Referring Provider Nurse Practitioner; Visit Provider Internal Medicine Gastroenterology
PROC: 0DJ08ZZ Inspection of Upper Intestinal Tract, Via Natural or Artificial Opening Endoscopic (ICD-10-PCS; CPT 45378; principal; 2024-11-20 13:00)
DX: Z12.11 Encounter for screening for malignant neoplasm of colon (principal); K57.30 Diverticulosis of large intestine without perforation or abscess without bleeding; K64.8 Other hemorrhoids; K29.50 Unspecified chronic gastritis without bleeding; K21.9 Gastro-esophageal reflux disease without esophagitis; R13.10 Dysphagia, unspecified; K31.7 Polyp of stomach and duodenum; Z86.0100 Personal history of colon polyps, unspecified; E66.01 Morbid (severe) obesity due to excess calories; Z68.41 Body mass index [BMI] 40.0-44.9, adult
CPT/HCPCS: 45378; 43239; 88305; J2704; J7120